=== PATIENT | male | born 1945 | race Caucasian/White ===

== ENCOUNTER → 2016-05-19 | Outpatient (REF) | payer MEDICARE ==
[~2016-05-19] MED LIST: ACET30TAB PO; ACYC1CAP8 PO; ASPI81TA85 PO; CLIN1CAP5 PEG; FLUCONAZOLE PO; LOSA50TA20 PO; METO50TA2 PO; OMEP20CA3 PO; PILO5TAB3 PO; PRED10TA PO; SIMV40TA2 PO; SIMV80TA PO
[2016-05-19 17:15] LABS: BASO % 0.2 % (0.0-1.0); EOS # 0.3 K/mm3 (0.0-0.50); EOS % 5.8 % (0.0-3.0); LARGE UNSTAINED CELL # 0.1 K/mm3 (0.0-0.4); LARGE UNSTAINED CELL % 2.1 % (0.0-4.0); LYMPH # 0.6 K/mm3 (1.5-4.5); LYMPH % 13.4 % (24.0-44.0); MEAN CORPUSCULAR HEMOGLOBIN 33.4 pg (27.0-33.0); MEAN CORPUSCULAR HGB CONC 34.8 g/dl (32.0-36.5); MEAN CORPUSCULAR VOLUME 95.7 fl (80.0-96.0); MONO # 0.2 K/mm3 (0.0-0.8); MONO % 5.5 % (0.0-5.0); NEUTROPHILS # 3.2 K/mm3 (1.8-7.7); PLATELET COUNT, AUTOMATED 127 k/mm3 (150-450); RED CELL DISTRIBUTION WIDTH 11.9 % (11.5-14.5); WHITE BLOOD COUNT 4.4 K/mm3 (4.0-10.0)
[2016-05-19 18:20] LABS: ALKALINE PHOSPHATASE 70 U/L (45-117); ALT/SGPT 28 U/L (12-78); ANION GAP 9 MEQ/L (8-16); AST/SGOT 24 U/L (15-37); BILIRUBIN,TOTAL 0.7 MG/DL (0.2-1.0); BLOOD UREA NITROGEN 15 MG/DL (7-18); CALCIUM LEVEL 8.6 MG/DL (8.8-10.2); CARBON DIOXIDE LEVEL 26 MEQ/L (21-32); CHLORIDE LEVEL 104 MEQ/L (98-107); CHOLESTEROL LEVEL 146 MG/DL (<200); GLOMERULAR FILTRATION RATE > 60.0 (>42); GLUCOSE, FASTING 79 MG/DL (83-110); POTASSIUM SERUM 4.6 MEQ/L (3.5-5.1); SODIUM LEVEL 139 MEQ/L (136-145); TOTAL PROTEIN 6.5 GM/DL (6.4-8.2); TRIGLYCERIDES LEVEL 80 MG/DL (<150)
== END ==
LOC: M SFHCCAPE 07:01
PROVIDERS: ATTEND Physician Assistant
DX: I67.9 Cerebrovascular disease, unspecified (principal); R26.89 Other abnormalities of gait and mobility; E78.5 Hyperlipidemia, unspecified; Z79.899 Other long term (current) drug therapy

== ENCOUNTER → 2016-06-02 | Outpatient (CLI) | payer OTHER, MEDICARE | LOC: M ONCR 09:54 | PROVIDERS: ATTEND Radiology Radiation Oncology | DX: C09.9 Malignant neoplasm of tonsil, unspecified (principal) ==

== ENCOUNTER → 2016-06-14 | Outpatient (CLI) | payer MEDICARE ==
--- NOTE | 2016-06-14 16:58 | REP ---
MRI BRAIN WITHOUT WITH CONTRAST: 06/14/2016: Clinical history: Cerebrovascular disease. Technique: Axial T1, T2, FLAIR, gradient echo, diffusion-weighted images with ADC mapping sequences and then following infusion of 11 mL of ProHance, axial, coronal and sagittal T1 sequences were provided. Findings: Ventricles are midline, symmetric and mildly dilated in proportion with the cerebral atrophy. There is no midline shift. Atrophy is greatest in the temporal and frontal lobes. There are a few scattered subcortical and periventricular white matter hyperintense T2 and FLAIR foci suggesting some small vessel ischemic change. I do not see evidence of acute or remote hemorrhage. Cortical stripe was preserved. There is no vascular territory infarct, mass, mass effect or acute bleed. The brainstem was intact. Cerebellum shows small lacunar infarcts bilaterally which are old. The diffusion weighted images and ADC mapping sequences show no evidence of acute ischemic event. The corpus callosum, optic chiasm and pituitary were intact. The brainstem and the upper cervical cord included in the study were unremarkable. There is no cerebellar tonsillar ectopia or posterior fossa mass. Basal cisterns are intact. There is bilateral mastoiditis with more opacification of the left than right mastoid air cells. Mucosal thickening of multiple ethmoid and both maxillary sinus santos as well as some sphenoid sinus mucosal thickening. Frontal sinuses were clear. Orbits show globes and contents unremarkable. Septum is generally midline. After contrast administration. There is no abnormal enhancement in the pituitary fossa, brainstem, cerebellum or cerebral hemispheres. No abnormal meningeal enhancement, enhancing mass, gyriform enhancement other significant finding. Impression: 1. Chronic small vessel white matter ischemic change with old lacunar infarcts at the basal ganglia and no evidence of acute infarct, hemorrhage, mass or mass effect. 2. Bilateral mastoid and sinuses mucosal thickening without air fluid levels or destructive change. 3. Orbits and contents, seventh/eighth cranial nerve complexes brainstem are all unremarkable. Signed by Kushal Morales MD 06/14/2016 07:40 P
== END ==
LOC: M RAD 14:54
PROVIDERS: ATTEND Physician Assistant
DX: I67.9 Cerebrovascular disease, unspecified (principal)
CPT/HCPCS: 70553; A9576

== ENCOUNTER → 2016-06-21 | Outpatient (CLI) | payer MEDICARE ==
--- NOTE | 2016-06-21 14:51 | REP ---
DUPLEX CAROTID SONOGRAPHY: HISTORY: Cerebrovascular disease. FINDINGS: Antegrade flow was observed in both vertebral arteries. RIGHT CAROTID: The right common carotid artery shows mild diffuse intimal thickening. There is mixed plaquing in the distal CCA, bulb, proximal ICA on the right side on two-dimensional scanning. Color-flow and spectral Doppler interrogation are unremarkable. VELOCITY CHART RIGHT CAROTID: Right CCA PSV 79 cm/s Right ICA PSV 77 EDV 13 Right ECA PSV 95 Right ICA/CCA ratio, normal 1.0 IMPRESSION: 16-49% category narrowing in the right ICA by Doppler velocity criteria. LEFT CAROTID: The left common carotid artery shows mild diffuse intimal thickening. There is mixed plaquing in the bulb, proximal ICA, and proximal ECA on two-dimensional scanning on the left side. Color-flow and spectral Doppler interrogation are unremarkable. VELOCITY CHART LEFT CAROTID: Left CCA PSV 69 cm/s Left ICA PSV 72 EDV 14 Left ECA PSV 96 Left ICA/CCA ratio, normal 1.05 IMPRESSION: 16-49% category narrowing in the left ICA by Doppler velocity criteria. Signed by Ozzie Perez MD 06/21/2016 03:23 P
== END ==
LOC: M RAD 13:13
PROVIDERS: ATTEND Physician Assistant
DX: I67.9 Cerebrovascular disease, unspecified (principal); I65.22 Occlusion and stenosis of left carotid artery

== ENCOUNTER → 2016-07-06 | Outpatient (REF) | payer MEDICARE, OTHER ==
[2016-07-06 16:58] LABS: BASO % 0.6 % (0.0-1.0); EOS # 0.4 K/mm3 (0.0-0.50); EOS % 6.5 % (0.0-3.0); LARGE UNSTAINED CELL # 0.1 K/mm3 (0.0-0.4); LARGE UNSTAINED CELL % 1.4 % (0.0-4.0); LYMPH # 0.8 K/mm3 (1.5-4.5); LYMPH % 11.7 % (24.0-44.0); MEAN CORPUSCULAR HEMOGLOBIN 33.3 pg (27.0-33.0); MEAN CORPUSCULAR HGB CONC 33.8 g/dl (32.0-36.5); MEAN CORPUSCULAR VOLUME 98.7 fl (80.0-96.0); MONO # 0.5 K/mm3 (0.0-0.8); MONO % 7.9 % (0.0-5.0); NEUTROPHILS # 4.3 K/mm3 (1.8-7.7); NEUTROPHILS % 71.9 % (36.0-66.0); PLATELET COUNT, AUTOMATED 156 k/mm3 (150-450)
[2016-07-06 17:32] LABS: ALBUMIN 4.3 GM/DL (3.2-5.2); ALBUMIN/GLOBULIN RATIO 1.59 (1.00-1.93); ALKALINE PHOSPHATASE 75 U/L (45-117); ALT/SGPT 32 U/L (12-78); ANION GAP 7 MEQ/L (8-16); AST/SGOT 27 U/L (15-37); BILIRUBIN,TOTAL 0.5 MG/DL (0.2-1.0); BLOOD UREA NITROGEN 19 MG/DL (7-18); CALCIUM LEVEL 8.7 MG/DL (8.8-10.2); CARBON DIOXIDE LEVEL 29 MEQ/L (21-32); CHLORIDE LEVEL 103 MEQ/L (98-107); CREATININE FOR GFR 1.24 MG/DL (0.70-1.30); FREE T4 0.75 NG/DL (0.76-1.46); GLOMERULAR FILTRATION RATE > 60.0 (>42); GLUCOSE, FASTING 73 MG/DL (83-110); POTASSIUM SERUM 4.3 MEQ/L (3.5-5.1); SODIUM LEVEL 139 MEQ/L (136-145)
== END ==
LOC: M SFHCCAPE 08:34
PROVIDERS: ATTEND Physician Assistant
DX: D69.6 Thrombocytopenia, unspecified (principal); R94.6 Abnormal results of thyroid function studies
CPT/HCPCS: 80053; 84439; 84443; 85025; G0463

== ENCOUNTER → 2016-09-01 | Outpatient (REF) | payer OTHER ==
[2016-09-01 17:12] LABS: BASO % 0.3 % (0.0-1.0); EOS # 0.3 K/mm3 (0.0-0.50); EOS % 4.9 % (0.0-3.0); FREE T4 0.96 NG/DL (0.76-1.46); LARGE UNSTAINED CELL # 0.1 K/mm3 (0.0-0.4); LARGE UNSTAINED CELL % 1.5 % (0.0-4.0); LYMPH # 0.5 K/mm3 (1.5-4.5); LYMPH % 9.6 % (24.0-44.0); MEAN CORPUSCULAR HEMOGLOBIN 32.6 pg (27.0-33.0); MEAN CORPUSCULAR HGB CONC 33.4 g/dl (32.0-36.5); MEAN CORPUSCULAR VOLUME 97.8 fl (80.0-96.0); MONO # 0.3 K/mm3 (0.0-0.8); MONO % 5.8 % (0.0-5.0); NEUTROPHILS # 4.4 K/mm3 (1.8-7.7); NEUTROPHILS % 77.9 % (36.0-66.0); PLATELET COUNT, AUTOMATED 125 k/mm3 (150-450); RED CELL DISTRIBUTION WIDTH 12.1 % (11.5-14.5); WHITE BLOOD COUNT 5.6 K/mm3 (4.0-10.0)
== END ==
LOC: M SFHCCAPE 07:50
PROVIDERS: ATTEND Physician Assistant
DX: E03.9 Hypothyroidism, unspecified (principal); Z79.899 Other long term (current) drug therapy

== ENCOUNTER → 2016-11-02 | Outpatient (REF) | payer OTHER ==
[2016-11-02 18:42] LABS: ALBUMIN 4.1 GM/DL (3.2-5.2); ALBUMIN/GLOBULIN RATIO 1.71 (1.00-1.93); ALKALINE PHOSPHATASE 62 U/L (45-117); ALT/SGPT 26 U/L (12-78); ANION GAP 5 MEQ/L (8-16); AST/SGOT 22 U/L (15-37); BILIRUBIN,TOTAL 0.6 MG/DL (0.2-1.0); BLOOD UREA NITROGEN 11 MG/DL (7-18); CALCIUM LEVEL 8.7 MG/DL (8.8-10.2); CARBON DIOXIDE LEVEL 30 MEQ/L (21-32); CHLORIDE LEVEL 99 MEQ/L (98-107); CREATININE FOR GFR 1.16 MG/DL (0.70-1.30); FREE T4 1.07 NG/DL (0.76-1.46); GLOMERULAR FILTRATION RATE > 60.0 (>42); GLUCOSE, FASTING 81 MG/DL (83-110); POTASSIUM SERUM 4.2 MEQ/L (3.5-5.1); SODIUM LEVEL 134 MEQ/L (136-145); TOTAL PROTEIN 6.5 GM/DL (6.4-8.2)
[2016-11-02 20:43] LABS: BASO # 0.1 K/mm3 (0.0-0.2); BASO % 1.3 % (0.0-1.0); EOS # 0.3 K/mm3 (0.0-0.50); EOS % 6.2 % (0.0-3.0); LARGE UNSTAINED CELL # 0.1 K/mm3 (0.0-0.4); LARGE UNSTAINED CELL % 1.6 % (0.0-4.0); LYMPH # 0.6 K/mm3 (1.5-4.5); LYMPH % 11.6 % (24.0-44.0); MEAN CORPUSCULAR HEMOGLOBIN 33.8 pg (27.0-33.0); MEAN CORPUSCULAR HGB CONC 34.6 g/dl (32.0-36.5); MEAN CORPUSCULAR VOLUME 97.8 fl (80.0-96.0); MONO # 0.4 K/mm3 (0.0-0.8); NEUTROPHILS # 3.7 K/mm3 (1.8-7.7); NEUTROPHILS % 71.3 % (36.0-66.0); PLATELET COUNT, AUTOMATED 139 k/mm3 (150-450); RED CELL DISTRIBUTION WIDTH 12.2 % (11.5-14.5); WHITE BLOOD COUNT 5.2 K/mm3 (4.0-10.0)
== END ==
LOC: M SFHCCAPE 08:24
PROVIDERS: ATTEND Physician Assistant
DX: I10 Essential (primary) hypertension (principal); D69.6 Thrombocytopenia, unspecified; E03.9 Hypothyroidism, unspecified; Z12.5 Encounter for screening for malignant neoplasm of prostate
CPT/HCPCS: 80053; 84439; 84443; 85025; G0103

== ENCOUNTER → 2017-02-02 | Outpatient (REF) | payer OTHER ==
[~2017-02-02] MED LIST changes: -ACYC1CAP8 PO; +ACYC200C8 PO; +CLIN150C14 PEG; -CLIN1CAP5 PEG; -METO50TA2 PO; +METO50TA7 PO
== END ==
LOC: M SFHCCAPE 09:27
PROVIDERS: ATTEND Physician Assistant
DX: D69.6 Thrombocytopenia, unspecified (principal); E78.5 Hyperlipidemia, unspecified; E03.9 Hypothyroidism, unspecified

== ENCOUNTER → 2017-02-23 | Outpatient (CLI) | payer OTHER ==
--- NOTE | 2017-02-24 15:11 | REP ---
Clinical: Pain . Technique: Internal rotation, external rotation, and Y view shoulder. Findings: Mild age-related changes include cortical irregularity and subtle spurring at the acromioclavicular joint as well as blunting to the glenoid rim. No acute fracture or dislocation. The acromioclavicular and glenohumeral joints are intact. No periarticular calcifications. Sub acromial space is normal. Surrounding soft tissues are unremarkable. Impression: Degenerative changes to the right shoulder
== END ==
LOC: M CLY 14:04
PROVIDERS: ATTEND Physician Assistant
DX: M25.511 Pain in right shoulder (principal)

== ENCOUNTER → 2017-07-27 | Outpatient (REF) | payer OTHER ==
[2017-07-27 18:29] LABS: ALBUMIN 4.1 GM/DL (3.2-5.2); ALBUMIN/GLOBULIN RATIO 1.46 (1.00-1.93); ALKALINE PHOSPHATASE 71 U/L (45-117); ALT/SGPT 21 U/L (12-78); ANION GAP 8 MEQ/L (8-16); AST/SGOT 21 U/L (7-37); BILIRUBIN,TOTAL 0.9 MG/DL (0.2-1.0); BLOOD UREA NITROGEN 11 MG/DL (7-18); CALCIUM LEVEL 8.5 MG/DL (8.8-10.2); CARBON DIOXIDE LEVEL 27 MEQ/L (21-32); CHLORIDE LEVEL 102 MEQ/L (98-107); CHOLESTEROL LEVEL 127 MG/DL (<200); CHOLESTEROL RISK RATIO 1.548 (<5); CREATININE FOR GFR 1.07 MG/DL (0.70-1.30); GLOMERULAR FILTRATION RATE > 60.0 (>42); GLUCOSE, FASTING 83 MG/DL (70-100); HDL CHOLESTEROL 82 MG/DL (>40); LDL CHOLESTEROL 31.6 MG/DL (<100); NON-HDL-C 45 MG/DL; POTASSIUM SERUM 4.2 MEQ/L (3.5-5.1); SODIUM LEVEL 137 MEQ/L (136-145); TOTAL PROTEIN 6.9 GM/DL (6.4-8.2); TRIGLYCERIDES LEVEL 67 MG/DL (<150)
[2017-07-27 18:51] LABS: BASO # 0.1 10^3/uL (0.0-0.2); BASO % 1.1 % (0.0-1.0); EOS # 0.5 10^3/uL (0.0-0.50); HEMATOCRIT 39.3 % (42.0-52.0); HEMOGLOBIN 13.3 g/dl (14.0-18.0); IMMATURE GRANULOCYTE % 0.4 % (0-3.0); LYMPH # 0.9 10^3/uL (1.5-4.5); LYMPH % 15.7 % (24.0-44.0); MEAN CORPUSCULAR HEMOGLOBIN 32.4 pg (27.0-33.0); MEAN CORPUSCULAR HGB CONC 33.8 g/dl (32.0-36.5); MEAN CORPUSCULAR VOLUME 95.6 fl (80.0-96.0); MONO # 0.6 10^3/uL (0.0-0.8); NEUTROPHILS # 3.7 10^3/uL (1.8-7.7); NEUTROPHILS % 64.8 % (36.0-66.0); PLATELET COUNT, AUTOMATED 167 10^3/uL (150-450); RED BLOOD COUNT 4.11 10^6/uL (4.30-6.10); WHITE BLOOD COUNT 5.6 10^3/uL (4.0-10.0)
== END ==
LOC: M SFHCCAPE 07:36
DX: E78.5 Hyperlipidemia, unspecified (principal); D69.6 Thrombocytopenia, unspecified; E03.9 Hypothyroidism, unspecified
CPT/HCPCS: 84443

== ENCOUNTER → 2017-08-03 | Outpatient (REF) | payer OTHER ==
[2017-08-04 17:12] LABS: APPEARANCE, URINE CLEAR (CLEAR); BACTERIA, URINE AUTO NEGATIVE (NEGATIVE); BILIRUBIN, URINE AUTO NEGATIVE (NEGATIVE); BLOOD, URINE BLOOD NEGATIVE (NEGATIVE); COLOR, URINE STRAW (YELLOW); GLUCOSE, URINE (UA) AUTO NEGATIVE (NEGATIVE); KETONE, URINE AUTO NEGATIVE (NEGATIVE); LEUKOCYTE ESTERASE, URINE AUTO NEGATIVE (NEGATIVE); NITRITE, URINE AUTO NEGATIVE (NEGATIVE); PROTEIN, URINE AUTO NEGATIVE (NEGATIVE); RBC, URINE AUTO 0 /HPF (0-3); SPECIFIC GRAVITY URINE AUTO 1.004 (1.002-1.035); SQUAMOUS EPITHELIAL CELL UR AU 0 /HPF (0-6); UROBILINOGEN, URINE AUTO 0.2 mg/dL (0.0-2.0); WBC, URINE AUTO 0 /HPF (0-3)
== END ==
LOC: M SFHCCAPE 14:52
DX: R35.1 Nocturia (principal)
CPT/HCPCS: 81001

== ENCOUNTER 2017-09-21 08:14 | Outpatient (REF) | payer OTHER ==
[2017-09-27 17:56] LABS: BASO # 0.1 10^3/uL (0.0-0.2); BASO % 0.7 % (0.0-1.0); EOS # 0.4 10^3/uL (0.0-0.50); EOS % 5.4 % (0.0-3.0); HEMATOCRIT 39.1 % (42.0-52.0); IMMATURE GRANULOCYTE % 0.4 % (0-3.0); LYMPH # 0.6 10^3/uL (1.5-4.5); LYMPH % 8.8 % (24.0-44.0); MEAN CORPUSCULAR HEMOGLOBIN 33.2 pg (27.0-33.0); MEAN CORPUSCULAR HGB CONC 33.2 g/dl (32.0-36.5); MONO # 0.7 10^3/uL (0.0-0.8); MONO % 9.4 % (0.0-5.0); NEUTROPHILS # 5.3 10^3/uL (1.8-7.7); NEUTROPHILS % 75.3 % (36.0-66.0); PLATELET COUNT, AUTOMATED 174 10^3/uL (150-450); RED BLOOD COUNT 3.91 10^6/uL (4.30-6.10); RED CELL DISTRIBUTION WIDTH 12.8 % (11.5-14.5)
[2017-09-27 18:52] LABS: ALBUMIN 4.3 GM/DL (3.2-5.2); ALBUMIN/GLOBULIN RATIO 1.59 (1.00-1.93); ALKALINE PHOSPHATASE 70 U/L (45-117); ALT/SGPT 30 U/L (12-78); ANION GAP 7 MEQ/L (8-16); AST/SGOT 30 U/L (7-37); BILIRUBIN,TOTAL 0.8 MG/DL (0.2-1.0); BLOOD UREA NITROGEN 18 MG/DL (7-18); CALCIUM LEVEL 8.1 MG/DL (8.8-10.2); CARBON DIOXIDE LEVEL 25 MEQ/L (21-32); CHLORIDE LEVEL 102 MEQ/L (98-107); CHOLESTEROL LEVEL 144 MG/DL (<200); CHOLESTEROL RISK RATIO 2.028 (<5); FREE T4 0.97 NG/DL (0.76-1.46); GLOMERULAR FILTRATION RATE > 60.0 (>42); GLUCOSE, FASTING 78 MG/DL (70-100); HDL CHOLESTEROL 71 MG/DL (>40); LDL CHOLESTEROL 61.2 MG/DL (<100); NON-HDL-C 73 MG/DL; POTASSIUM SERUM 4.4 MEQ/L (3.5-5.1); SODIUM LEVEL 134 MEQ/L (136-145); TRIGLYCERIDES LEVEL 59 MG/DL (<150)
== END 2017-09-27 ==
LOC: M SFHCCAPE 08:14
DX: Z53.21 Procedure and treatment not carried out due to patient leaving prior to being seen by health care provider (principal); D69.6 Thrombocytopenia, unspecified; E78.5 Hyperlipidemia, unspecified; E03.9 Hypothyroidism, unspecified
CPT/HCPCS: 84443

== ENCOUNTER → 2017-10-04 | Outpatient (REF) | payer OTHER | LOC: M SFHCCAPE 11:42 | DX: E83.51 Hypocalcemia (principal); D64.9 Anemia, unspecified; E03.9 Hypothyroidism, unspecified; Z53.8 Procedure and treatment not carried out for other reasons ==

== ENCOUNTER 2018-01-20 12:01 | Day surgery (SDC) | payer MEDICARE, OTHER ==
[~2018-01-20 12:01] MED LIST changes: -ACET30TAB PO; -ACYC200C8 PO; -ASPI81TA85 PO; -CLIN150C14 PEG; -FLUCONAZOLE PO; +LIDOCAINE 2% INJ 100 MG/5 ML SDV (FOR ANES.) As Ordered; -LOSA50TA20 PO; -METO50TA7 PO; -OMEP20CA3 PO; -PILO5TAB3 PO; -PRED10TA PO; +PROPOFOL 200 MG/20 ML VIAL As Ordered; -SIMV40TA2 PO; -SIMV80TA PO; +fentaNYL 100 MCG/2 ML INJECTION (J3010) As Ordered
[2018-01-20] MEDS: NS 1,000 ML IV (12:36)
== END 2018-01-20 14:23 | disposition home or self-care (01) ==
LOC: M OPP 12:01
DX: R13.10 Dysphagia, unspecified (principal); K22.2 Esophageal obstruction; K25.9 Gastric ulcer, unspecified as acute or chronic, without hemorrhage or perforation; K29.70 Gastritis, unspecified, without bleeding; I10 Essential (primary) hypertension; E78.5 Hyperlipidemia, unspecified; E03.9 Hypothyroidism, unspecified; R12 Heartburn; K21.9 Gastro-esophageal reflux disease without esophagitis; D64.9 Anemia, unspecified; M19.90 Unspecified osteoarthritis, unspecified site; F32.9 Major depressive disorder, single episode, unspecified; F41.9 Anxiety disorder, unspecified; Z86.69 Personal history of other diseases of the nervous system and sense organs; Z85.818 Personal history of malignant neoplasm of other sites of lip, oral cavity, and pharynx; Z92.3 Personal history of irradiation; J44.9 Chronic obstructive pulmonary disease, unspecified; R35.0 Frequency of micturition; F12.10 Cannabis abuse, uncomplicated; Z79.899 Other long term (current) drug therapy
CPT/HCPCS: 43239

== ENCOUNTER 2018-01-30 14:26 | Inpatient (IN) | payer OTHER, MEDICARE ==
[2018-01-30 14:53] LABS: BEDSIDE GLUCOSE 130 MG/DL (83-110)
[2018-01-30 15:11] LABS: BASO % 0.3 % (0.0-1.0); EOS % 0.3 % (0.0-3.0); HEMATOCRIT 47.2 % (42.0-52.0); HEMOGLOBIN 16.5 g/dl (13.5-17.5); IMMATURE GRANULOCYTE % 0.5 % (0-3.0); LYMPH # 0.9 10^3/uL (1.5-4.5); LYMPH % 7.4 % (24.0-44.0); MEAN CORPUSCULAR HEMOGLOBIN 32.9 pg (27.0-33.0); MEAN CORPUSCULAR VOLUME 94.2 fl (80.0-96.0); MONO # 0.3 10^3/uL (0.0-0.8); MONO % 2.9 % (0.0-5.0); NEUTROPHILS # 10.5 10^3/uL (1.8-7.7); NEUTROPHILS % 88.6 % (36.0-66.0); PLATELET COUNT, AUTOMATED 165 10^3/uL (150-450); RED BLOOD COUNT 5.01 10^6/uL (4.30-6.10); RED CELL DISTRIBUTION WIDTH 12.7 % (11.5-14.5); WHITE BLOOD COUNT 11.9 10^3/uL (4.0-10.0)
[2018-01-30] MEDS: ONDANSETRON 4MG/2ML VIAL (J2405) IV (15:28)
[2018-01-30 15:51] LABS: ALBUMIN/GLOBULIN RATIO 1.43 (1.00-1.93); ALKALINE PHOSPHATASE 79 U/L (45-117); ALT/SGPT 28 U/L (12-78); AMPHETAMINES LEVEL URINE NEGATIVE (NEGATIVE); ANION GAP 12 MEQ/L (8-16); AST/SGOT 29 U/L (7-37); BARBITURATES URINE NEGATIVE (NEGATIVE); BENZODIAZEPINES URINE NEGATIVE (NEGATIVE); BILIRUBIN,DIRECT 0.3 MG/DL (0.0-0.2); BLOOD UREA NITROGEN 14 MG/DL (7-18); CALCIUM LEVEL 9.8 MG/DL (8.8-10.2); CANNABINOIDS URINE POSITIVE (NEGATIVE); CARBON DIOXIDE LEVEL 23 MEQ/L (21-32); CHLORIDE LEVEL 99 MEQ/L (98-107); COCAINE METABOLITE URINE NEGATIVE (NEGATIVE); CPK CREATINE PHOSPHOKINASE 116 U/L (39-308); CREATININE FOR GFR 1.13 MG/DL (0.70-1.30); GLOMERULAR FILTRATION RATE > 60.0 (>42); GLUCOSE, FASTING 125 MG/DL (70-100); METHADONE URINE NEGATIVE (NEGATIVE); OPIATES URINE NEGATIVE (NEGATIVE); PHENCYCLIDINE URINE NEGATIVE (NEGATIVE); SODIUM LEVEL 134 MEQ/L (136-145); TOTAL PROTEIN 8.5 GM/DL (6.4-8.2); TROPONIN I < 0.02 NG/ML (< 0.10)
[2018-01-30 16:33] LABS: LIPASE 151 U/L (73-393)
[2018-01-30 17:33] LABS: ETHYL ALCOHOL (ETHANOL) < 0.003 % (0.000-0.010)
[2018-01-30 18:31] LABS: CPK CREATINE PHOSPHOKINASE 110 U/L (39-308); MB/CK RELATIVE INDEX 3.18 (< OR =4); TROPONIN I 0.03 NG/ML (< 0.10)
[2018-01-30] MEDS: METOCLOPRAMIDE INJ 10MG/2ML VIAL (J2765) IV (19:42)
[2018-01-30] MEDS ORDERED: ONDANSETRON 4MG/2ML VIAL (J2405) IV (19:45)
[2018-01-30] MEDS ORDERED: CALCIUM CARBONATE 500 MG CHEW U/D PO (20:00)
[2018-01-30] MEDS ORDERED: LORazepam 2 MG TAB PO (20:00)
[2018-01-30] MEDS ORDERED: POLYVINYL ALCOHOL OPHTH SOLN 15 ML(LIQUITEARS) OU (20:00)
[2018-01-30] MEDS ORDERED: **hydrALAZINE** 50 MG TAB PO (20:00)
[2018-01-30] MEDS ORDERED: PROCHLORPERAZINE 10 MG/2 ML VIAL (J0780) As Ordered (20:33)
[2018-01-30] MEDS: PROCHLORPERAZINE 10 MG/2 ML VIAL (J0780) IV (20:44)
[2018-01-30] MEDS: THIAMINE 100 MG TAB PO (21:41)
[2018-01-30] MEDS: CARVedilol 3.125 MG TAB PO (21:41)
[2018-01-30] MEDS: SIMVASTATIN 40 MG TAB PO (21:41)
[2018-01-30] MEDS: GABAPENTIN 300 MG CAP PO (21:41)
[2018-01-30] MEDS: HEPARIN SOD (PORCINE) 5000 UNITS/ML VIAL SC (21:42)
[2018-01-30] MEDS: OMEPRAZOLE 20 MG CAP PO (21:42)
[2018-01-30] MEDS: NS 0.45% 1,000 ML IV (21:42)
[2018-01-30] MEDS: ACETAMINOPHEN TAB 650MG DOSE (2X325MG) PO (21:44)
[2018-01-30 21:52] LABS: C REACTIVE PROTEIN QUANTITATIV < 0.30 MG/DL (0.00-0.30)
[2018-01-30 22:10] LABS: APPEARANCE, URINE CLEAR (CLEAR); BACTERIA, URINE AUTO NEGATIVE (NEGATIVE); BILIRUBIN, URINE AUTO NEGATIVE (NEGATIVE); BLOOD, URINE BLOOD 1+ (NEGATIVE); COLOR, URINE YELLOW (YELLOW); GLUCOSE, URINE (UA) AUTO 2+ mg/dL (NEGATIVE); KETONE, URINE AUTO 2+ mg/dL (NEGATIVE); LEUKOCYTE ESTERASE, URINE AUTO NEGATIVE (NEGATIVE); MUCUS, URINE SMALL (NEGATIVE); NITRITE, URINE AUTO NEGATIVE (NEGATIVE); PROTEIN, URINE AUTO 3+ mg/dL (NEGATIVE); RBC, URINE AUTO 6 /HPF (0-3); SPECIFIC GRAVITY URINE AUTO 1.015 (1.002-1.035); SQUAMOUS EPITHELIAL CELL UR AU 0 /HPF (0-6); UROBILINOGEN, URINE AUTO 0.2 mg/dL (0.0-2.0); WBC, URINE AUTO 3 /HPF (0-3)
[2018-01-30] MEDS: **hydrALAZINE HCL** 25 MG TAB PO (23:09)
[2018-01-31] MEDS: IBUPROFEN 400 MG TAB PO (01:00)
[2018-01-31 02:46] LABS: HEMATOCRIT 46.8 % (42.0-52.0); HEMOGLOBIN 16.5 g/dl (13.5-17.5); MEAN CORPUSCULAR HEMOGLOBIN 33.3 pg (27.0-33.0); MEAN CORPUSCULAR HGB CONC 35.3 g/dl (32.0-36.5); MEAN CORPUSCULAR VOLUME 94.4 fl (80.0-96.0); PLATELET COUNT, AUTOMATED 134 10^3/uL (150-450); RED BLOOD COUNT 4.96 10^6/uL (4.30-6.10); RED CELL DISTRIBUTION WIDTH 12.5 % (11.5-14.5)
[2018-01-31] MEDS: HEPARIN SOD (PORCINE) 5000 UNITS/ML VIAL SC ×3 (06:00→20:34)
[2018-01-31] MEDS: LEVOTHYROXINE 50MCG TABLET (0.05MG) PO (06:00)
[2018-01-31 08:30] LABS: ANION GAP 12 MEQ/L (8-16); BLOOD UREA NITROGEN 25 MG/DL (7-18); CALCIUM LEVEL 8.6 MG/DL (8.8-10.2); CARBON DIOXIDE LEVEL 24 MEQ/L (21-32); CHLORIDE LEVEL 95 MEQ/L (98-107); GLOMERULAR FILTRATION RATE 35.2 (>42); GLUCOSE, FASTING 111 MG/DL (70-100); MAGNESIUM LEVEL 1.7 MG/DL (1.8-2.4); POTASSIUM SERUM 3.9 MEQ/L (3.5-5.1); SODIUM LEVEL 131 MEQ/L (136-145)
[2018-01-31] MEDS ORDERED: ASPIRIN 81 MG ENTERIC TAB PO (09:00)
[2018-01-31] MEDS ORDERED: PANTOPRAZOLE 40MG TAB (PROTONIX) PO (09:00)
[2018-01-31] MEDS: FOLIC ACID 1 MG TAB PO (09:20)
[2018-01-31] MEDS: OMEPRAZOLE 20 MG CAP PO ×2 (09:20→20:36)
[2018-01-31] MEDS: ASPIRIN 81 MG ENTERIC TAB PO (09:20)
[2018-01-31] MEDS: MULTIVITAMINS/MINERALS THERAP 1 TAB PO (09:20)
[2018-01-31] MEDS: CARVedilol 3.125 MG TAB PO ×2 (09:21→20:35)
[2018-01-31] MEDS: THIAMINE 100 MG TAB PO ×2 (09:21→20:35)
[2018-01-31] MEDS: LOSARTAN 50 MG TAB PO (09:21)
[2018-01-31] MEDS: NS 1,000 ML IV ×2 (11:45→18:00)
[2018-01-31] MEDS: MAG SULF 1GM/100ML (MAG RUN) 1 GM in APPROPRIATE DILUENT 1 EA IV (13:10)
[2018-01-31] MEDS: SIMVASTATIN 40 MG TAB PO (20:34)
[2018-01-31] MEDS: GABAPENTIN 300 MG CAP PO (20:35)
[2018-01-31] MEDS: VITAMIN D (CHOLECALCIFEROL) 400 INTERNATIONAL UNITS TAB PO (20:36)
[2018-01-31 21:24] LABS: ANION GAP 9 MEQ/L (8-16); BLOOD UREA NITROGEN 31 MG/DL (7-18); CALCIUM LEVEL 8.3 MG/DL (8.8-10.2); CARBON DIOXIDE LEVEL 22 MEQ/L (21-32); CHLORIDE LEVEL 100 MEQ/L (98-107); CREATININE FOR GFR 1.58 MG/DL (0.70-1.30); GLOMERULAR FILTRATION RATE 46.3 (>42); GLUCOSE, FASTING 95 MG/DL (70-100); MAGNESIUM LEVEL 2.1 MG/DL (1.8-2.4); POTASSIUM SERUM 3.9 MEQ/L (3.5-5.1); SODIUM LEVEL 131 MEQ/L (136-145)
[2018-02-01] MEDS: NS 1,000 ML IV (03:27)
[2018-02-01] MEDS: LEVOTHYROXINE 50MCG TABLET (0.05MG) PO (05:46)
[2018-02-01] MEDS: HEPARIN SOD (PORCINE) 5000 UNITS/ML VIAL SC (05:46)
[2018-02-01 06:45] LABS: HEMATOCRIT 39.7 % (42.0-52.0); MEAN CORPUSCULAR HEMOGLOBIN 32.5 pg (27.0-33.0); MEAN CORPUSCULAR HGB CONC 34.3 g/dl (32.0-36.5); PLATELET COUNT, AUTOMATED 112 10^3/uL (150-450); RED BLOOD COUNT 4.18 10^6/uL (4.30-6.10); RED CELL DISTRIBUTION WIDTH 12.5 % (11.5-14.5)
[2018-02-01 06:51] LABS: HEMOGLOBIN 13.6 g/dl (13.5-17.5)
[2018-02-01 07:14] LABS: ANION GAP 7 MEQ/L (8-16); BLOOD UREA NITROGEN 26 MG/DL (7-18); CALCIUM LEVEL 7.9 MG/DL (8.8-10.2); CARBON DIOXIDE LEVEL 23 MEQ/L (21-32); CHLORIDE LEVEL 106 MEQ/L (98-107); CREATININE FOR GFR 1.21 MG/DL (0.70-1.30); GLOMERULAR FILTRATION RATE > 60.0 (>42); GLUCOSE, FASTING 96 MG/DL (70-100); POTASSIUM SERUM 3.9 MEQ/L (3.5-5.1); SODIUM LEVEL 136 MEQ/L (136-145)
[2018-02-01] MEDS: OMEPRAZOLE 20 MG CAP PO (09:22)
[2018-02-01] MEDS: MULTIVITAMINS/MINERALS THERAP 1 TAB PO (09:22)
[2018-02-01] MEDS: THIAMINE 100 MG TAB PO (09:22)
[2018-02-01] MEDS: ASPIRIN 81 MG ENTERIC TAB PO (09:22)
[2018-02-01] MEDS: FOLIC ACID 1 MG TAB PO (09:22)
[2018-02-01] MEDS: CARVedilol 3.125 MG TAB PO (09:24)
[2018-02-01] MEDS: VITAMIN D (CHOLECALCIFEROL) 400 INTERNATIONAL UNITS TAB PO (09:24)
== END 2018-02-01 12:00 | disposition home or self-care (01) | DRG 54 ==
LOC: M PCU 01-31 02:09 → M ED 14:26 → M ED INP 19:33 → M MSPAV 01-31 18:23
PROVIDERS: Internal Medicine
DX: G43.A0 Cyclical vomiting, in migraine, not intractable (principal); N17.9 Acute kidney failure, unspecified; R55 Syncope and collapse; E86.0 Dehydration; Z86.73 Personal history of transient ischemic attack (TIA), and cerebral infarction without residual deficits; K21.9 Gastro-esophageal reflux disease without esophagitis; I10 Essential (primary) hypertension; Z92.3 Personal history of irradiation; E78.5 Hyperlipidemia, unspecified; Z85.09 Personal history of malignant neoplasm of other digestive organs; Z98.49 Cataract extraction status, unspecified eye; Z79.899 Other long term (current) drug therapy

== ENCOUNTER → 2018-04-11 | Outpatient (REF) | payer OTHER | LOC: M SFHCCAPE 08:38 → M SFHCCLAY 10:21 | DX: E83.51 Hypocalcemia (principal); D64.9 Anemia, unspecified; E03.9 Hypothyroidism, unspecified; Z53.8 Procedure and treatment not carried out for other reasons ==

== ENCOUNTER → 2018-04-11 | Outpatient (CLI) | payer MEDICARE ==
[2018-04-11 13:01] LABS: IONIZED CALCIUM 4.4 MG/DL (4.5-5.3)
[2018-04-11 13:07] LABS: BASO # 0.1 10^3/uL (0.0-0.2); BASO % 0.6 % (0.0-1.0); EOS # 0.6 10^3/uL (0.0-0.50); EOS % 6.5 % (0.0-3.0); HEMATOCRIT 44.9 % (42.0-52.0); HEMOGLOBIN 15.5 g/dl (13.5-17.5); IMMATURE GRANULOCYTE % 0.2 % (0-3.0); LYMPH # 0.9 10^3/uL (1.5-4.5); LYMPH % 9.9 % (24.0-44.0); MEAN CORPUSCULAR HEMOGLOBIN 32.8 pg (27.0-33.0); MEAN CORPUSCULAR HGB CONC 34.5 g/dl (32.0-36.5); MEAN CORPUSCULAR VOLUME 95.1 fl (80.0-96.0); MONO # 0.6 10^3/uL (0.0-0.8); MONO % 6.5 % (0.0-5.0); NEUTROPHILS # 6.9 10^3/uL (1.8-7.7); NEUTROPHILS % 76.3 % (36.0-66.0); PLATELET COUNT, AUTOMATED 128 10^3/uL (150-450); RED BLOOD COUNT 4.72 10^6/uL (4.30-6.10); RED CELL DISTRIBUTION WIDTH 12.2 % (11.5-14.5)
[2018-04-11 13:08] LABS: HEMATOCRIT 44.9 % (42.0-52.0)
[2018-04-11 13:42] LABS: ALBUMIN 4.2 GM/DL (3.2-5.2); ALBUMIN/GLOBULIN RATIO 1.27 (1.00-1.93); ALKALINE PHOSPHATASE 74 U/L (45-117); ALT/SGPT 25 U/L (12-78); ANION GAP 6 MEQ/L (8-16); AST/SGOT 21 U/L (7-37); BILIRUBIN,TOTAL 0.6 MG/DL (0.2-1.0); BLOOD UREA NITROGEN 14 MG/DL (7-18); CALCIUM LEVEL 8.6 MG/DL (8.8-10.2); CARBON DIOXIDE LEVEL 29 MEQ/L (21-32); CHLORIDE LEVEL 101 MEQ/L (98-107); CHOLESTEROL LEVEL 175 MG/DL (<200); CHOLESTEROL RISK RATIO 2.573 (<5); CREATININE FOR GFR 1.02 MG/DL (0.70-1.30); FERRITIN 100 NG/ML (26-388); FREE T4 1.07 NG/DL (0.76-1.46); GLOMERULAR FILTRATION RATE > 60.0 (>42); GLUCOSE, FASTING 67 MG/DL (70-100); HDL CHOLESTEROL 68 MG/DL (>40); IRON (FE) 94 UG/DL (65-175); LDL CHOLESTEROL 84 MG/DL (<100); MAGNESIUM LEVEL 2.1 MG/DL (1.8-2.4); NON-HDL-C 107 MG/DL; PERCENT SATURATION 27.5 % (19.7-50.0); PHOSPHORUS LEVEL 3.5 MG/DL (2.5-4.9); POTASSIUM SERUM 4.9 MEQ/L (3.5-5.1); SODIUM LEVEL 136 MEQ/L (136-145); TOTAL IRON BINDING CAPACITY 342 UG/DL (250-450); TOTAL PROTEIN 7.5 GM/DL (6.4-8.2); TRIGLYCERIDES LEVEL 115 MG/DL (<150)
[2018-04-11 13:45] LABS: PTH INTACT 24.2 PG/ML (18.5-88.0); TOTAL 25(OH) VITAMIN D 25.2 NG/ML (30.0-100.0); VITAMIN B12 LEVEL 574 PG/ML (247-911)
== END ==
LOC: M LAB 11:44
DX: E78.5 Hyperlipidemia, unspecified (principal); E83.51 Hypocalcemia; D64.9 Anemia, unspecified; E03.9 Hypothyroidism, unspecified
CPT/HCPCS: 83550

== ENCOUNTER → 2018-04-26 | Outpatient (CLI) | payer MEDICARE | LOC: M CLY 10:50 | DX: M50.321 Other cervical disc degeneration at C4-C5 level (principal); M50.323 Other cervical disc degeneration at C6-C7 level; M25.78 Osteophyte, vertebrae | CPT/HCPCS: 72052 ==

== ENCOUNTER → 2018-06-21 | Outpatient (REF) | payer MEDICARE ==
[~2018-06-21] MED LIST changes: +ACET30TAB PO; +ACYC200C8 PO; +ARTI99.0 OU; +ASPI81CH PO; +ASPI81TA85 PO; +CARV3.12 PO; +CLIN150C14 PEG; +FLUCONAZOLE PO; +GABA-843 PO; +LEVO50TA5 PO; -LIDOCAINE 2% INJ 100 MG/5 ML SDV (FOR ANES.) As Ordered; +LOSA100T50 PO; +LOSA50TA88 PO; +METO50TA7 PO; +OMEP20CA3 PO; +OXYC1TAB23 PO; +OXYCOD/APAP PO; +PANT40TA3 PO; +PILO5TAB3 PO; +PRED10TA PO; -PROPOFOL 200 MG/20 ML VIAL As Ordered; +SIMV40TA2 PO; +SIMV80TA13 PO; +TUMS500C PO; +VITA400T2 PO; -fentaNYL 100 MCG/2 ML INJECTION (J3010) As Ordered
[2018-06-21 16:50] LABS: BLOOD UREA NITROGEN 14 MG/DL (7-18); CREATININE FOR GFR 1.07 MG/DL (0.70-1.30); GLOMERULAR FILTRATION RATE > 60.0 (>42)
== END ==
LOC: M LABDRWCV 16:11
PROVIDERS: ATTEND Orthopaedic Surgery
DX: M43.12 Spondylolisthesis, cervical region (principal); M50.30 Other cervical disc degeneration, unspecified cervical region

== ENCOUNTER → 2018-07-18 | Outpatient (REF) | payer MEDICARE ==
[2018-07-18 16:41] LABS: IONIZED CALCIUM 4.7 MG/DL (4.5-5.3)
[2018-07-18 16:48] LABS: BASO # 0.1 10^3/uL (0.0-0.2); BASO % 0.9 % (0.0-1.0); EOS # 0.3 10^3/uL (0.0-0.50); EOS % 5.4 % (0.0-3.0); HEMATOCRIT 40.6 % (42.0-52.0); HEMOGLOBIN 13.9 g/dl (13.5-17.5); LYMPH # 0.6 10^3/uL (1.5-4.5); LYMPH % 11.2 % (24.0-44.0); MEAN CORPUSCULAR HEMOGLOBIN 32.7 pg (27.0-33.0); MEAN CORPUSCULAR HGB CONC 34.2 g/dl (32.0-36.5); MEAN CORPUSCULAR VOLUME 95.5 fl (80.0-96.0); MONO # 0.5 10^3/uL (0.0-0.8); MONO % 9.8 % (0.0-5.0); NEUTROPHILS % 72.5 % (36.0-66.0); PLATELET COUNT, AUTOMATED 182 10^3/uL (150-450); RED BLOOD COUNT 4.25 10^6/uL (4.30-6.10); WHITE BLOOD COUNT 5.5 10^3/uL (4.0-10.0)
[2018-07-18 17:01] LABS: ALBUMIN 4.3 GM/DL (3.2-5.2); ALT/SGPT 27 U/L (12-78); BILIRUBIN,TOTAL 0.7 MG/DL (0.2-1.0); BLOOD UREA NITROGEN 16 MG/DL (7-18); CALCIUM LEVEL 8.6 MG/DL (8.8-10.2); CARBON DIOXIDE LEVEL 30 MEQ/L (21-32); CHLORIDE LEVEL 99 MEQ/L (98-107); CHOLESTEROL LEVEL 171 MG/DL (<200); CHOLESTEROL RISK RATIO 2.035 (<5); CREATININE FOR GFR 1.07 MG/DL (0.70-1.30); GLOMERULAR FILTRATION RATE > 60.0 (>42); GLUCOSE, FASTING 100 MG/DL (70-100); HDL CHOLESTEROL 84 MG/DL (>40); LDL CHOLESTEROL 67 MG/DL (<100); NON-HDL-C 87 MG/DL; POTASSIUM SERUM 4.3 MEQ/L (3.5-5.1); SODIUM LEVEL 135 MEQ/L (136-145); TOTAL PROTEIN 7.3 GM/DL (6.4-8.2); TRIGLYCERIDES LEVEL 98 MG/DL (<150)
== END ==
LOC: M SFHCCAPE 08:37
PROVIDERS: ATTEND Physician Assistant
DX: E78.5 Hyperlipidemia, unspecified (principal); D69.6 Thrombocytopenia, unspecified; E03.9 Hypothyroidism, unspecified; E55.9 Vitamin D deficiency, unspecified

== ENCOUNTER → 2018-11-15 | Outpatient (REF) | payer MEDICARE ==
[~2018-11-15] MED LIST changes: +ACET-716 PO; -ACET30TAB PO; -ASPI81CH PO; +ASPI81CH49 PO; -OMEP20CA3 PO; +OMEP20CA4 PO; +PRED-351 PO; -PRED10TA PO
[2018-11-15 18:02] LABS: ALT/SGPT 64 U/L (12-78); BILIRUBIN,TOTAL 0.6 MG/DL (0.2-1.0); BLOOD UREA NITROGEN 12 MG/DL (7-18); CALCIUM LEVEL 8.4 MG/DL (8.8-10.2); CARBON DIOXIDE LEVEL 28 MEQ/L (21-32); CHLORIDE LEVEL 101 MEQ/L (98-107); CREATININE FOR GFR 1.03 MG/DL (0.70-1.30); GLOMERULAR FILTRATION RATE > 60.0 (>42); GLUCOSE, FASTING 75 MG/DL (70-100); POTASSIUM SERUM 4.2 MEQ/L (3.5-5.1); SODIUM LEVEL 137 MEQ/L (136-145)
[2018-11-15 18:03] LABS: ALBUMIN 3.8 GM/DL (3.2-5.2); CHOLESTEROL LEVEL 142 MG/DL (<200); CHOLESTEROL RISK RATIO 2.327 (<5); FREE T4 1.17 NG/DL (0.76-1.46); HDL CHOLESTEROL 61 MG/DL (>40); LDL CHOLESTEROL 62 MG/DL (<100); NON-HDL-C 81 MG/DL; TOTAL PROTEIN 6.5 GM/DL (6.4-8.2); TRIGLYCERIDES LEVEL 95 MG/DL (<150)
[2018-11-15 18:06] LABS: TOTAL 25(OH) VITAMIN D 21.8 NG/ML (30.0-100.0)
[2018-11-15 18:10] LABS: BASO % 0.5 % (0.0-1.0); EOS # 0.2 10^3/uL (0.0-0.50); EOS % 2.4 % (0.0-3.0); HEMATOCRIT 37.1 % (42.0-52.0); HEMOGLOBIN 12.3 g/dl (13.5-17.5); LYMPH # 0.8 10^3/uL (1.5-4.5); LYMPH % 9.1 % (24.0-44.0); MEAN CORPUSCULAR HGB CONC 33.2 g/dl (32.0-36.5); MEAN CORPUSCULAR VOLUME 96.6 fl (80.0-96.0); MONO # 0.7 10^3/uL (0.0-0.8); MONO % 8.8 % (0.0-5.0); NEUTROPHILS # 6.6 10^3/uL (1.8-7.7); NEUTROPHILS % 78.8 % (36.0-66.0); PLATELET COUNT, AUTOMATED 168 10^3/uL (150-450); RED BLOOD COUNT 3.84 10^6/uL (4.30-6.10); WHITE BLOOD COUNT 8.3 10^3/uL (4.0-10.0)
== END ==
LOC: M SFHCCAPE 09:44
PROVIDERS: ATTEND Physician Assistant
DX: E78.5 Hyperlipidemia, unspecified (principal); E03.9 Hypothyroidism, unspecified; Z12.5 Encounter for screening for malignant neoplasm of prostate; R39.9 Unspecified symptoms and signs involving the genitourinary system; E55.9 Vitamin D deficiency, unspecified
CPT/HCPCS: 36415; 80053; 80061; 82306; 84439; 84443; 85025; G0103

== ENCOUNTER → 2018-11-20 | Outpatient (REF) | payer MEDICARE ==
[2018-11-20 19:38] LABS: APPEARANCE, URINE HAZY (CLEAR); BACTERIA, URINE AUTO 3+ (NEGATIVE); BILIRUBIN, URINE AUTO NEGATIVE (NEGATIVE); BLOOD, URINE BLOOD 1+ (NEGATIVE); COLOR, URINE YELLOW (YELLOW); GLUCOSE, URINE (UA) AUTO NEGATIVE (NEGATIVE); KETONE, URINE AUTO NEGATIVE (NEGATIVE); LEUKOCYTE ESTERASE, URINE AUTO NEGATIVE (NEGATIVE); NITRITE, URINE AUTO POSITIVE (NEGATIVE); PROTEIN, URINE AUTO NEGATIVE (NEGATIVE); RBC, URINE AUTO 0 /HPF (0-3); SPECIFIC GRAVITY URINE AUTO 1.004 (1.002-1.035); SQUAMOUS EPITHELIAL CELL UR AU 0 /HPF (0-6); UROBILINOGEN, URINE AUTO 0.2 mg/dL (0.0-2.0); WBC, URINE AUTO 0 /HPF (0-3)
== END ==
LOC: M SFHCCAPE 17:16
PROVIDERS: ATTEND Physician Assistant
DX: R39.9 Unspecified symptoms and signs involving the genitourinary system (principal)
CPT/HCPCS: 81001; 87088; 87186; G0463

== ENCOUNTER → 2018-12-07 | Outpatient (CLI) | payer MEDICARE | LOC: M RAD 10:15 | PROVIDERS: ATTEND Otolaryngology | DX: R13.10 Dysphagia, unspecified (principal); Z53.9 Procedure and treatment not carried out, unspecified reason ==

== ENCOUNTER → 2018-12-08 | Outpatient (CLI) | payer MEDICARE ==
[~2018-12-08] MED LIST changes: +E-Z-GAS II EFFERVESCENT PACKET (SODIUM BICARB./CITRIC ACID/SIMETHICONE) As Ordered ONE; +E-Z-PAQUE 96% w/w SUSP 176GM BTL As Ordered ONE
--- NOTE | 2018-12-12 17:28 | REP ---
Esophagram The procedure was performed under the direct supervision of Dr. Rascon. The images were reviewed with Dr. Rascon. A single view PA chest x-ray is submitted as a pl sql developer film. The superior mediastinal structures are midline. The heart size is within normal limits. The lungs are clear. Liquid barium was administered in the erect and prone oblique positions in order to perform a single contrast esophagram examination. The oral and pharyngeal stages of deglutition are unremarkable. There is cricopharyngeal hypertrophy. Esophageal transport is prompt and efficient and there is no esophagitis, stricture, mucosal ring or hiatal hernia. Gastroesophageal reflux is not demonstrated on this examination. Impression: There is cricopharyngeal hypertrophy. Otherwise, unremarkable single contrast esophagram examination. 0.7 minutes of fluoro time was utilized for this procedure. Reviewed by ROBERT Scott 12/08/2018 03:57 P Electronically Signed by Mayito Rascon MD 12/12/2018 05:19 P
== END ==
LOC: M RAD 09:11
PROVIDERS: ATTEND Otolaryngology
DX: J35.1 Hypertrophy of tonsils (principal)

== ENCOUNTER 2019-02-12 09:06 | Day surgery (SDC) | payer MEDICARE ==
[~2019-02-12] VITALS: Ht 167.6 cm; Wt 59.0 kg
[2019-02-12] MEDS: NS 1,000 ML IV SCH ×2 (06:00→11:53)
[~2019-02-12 09:06] MED LIST changes: -ARTI99.0 OU; +ARTIDRO2 OU; +CHOL100029 PO; -E-Z-GAS II EFFERVESCENT PACKET (SODIUM BICARB./CITRIC ACID/SIMETHICONE) As Ordered ONE; -E-Z-PAQUE 96% w/w SUSP 176GM BTL As Ordered ONE
[2019-02-12] MEDS ORDERED: LIDOCAINE 2% INJ 100 MG/5 ML SDV (FOR ANES.) As Ordered ONE (09:47)
[2019-02-12] MEDS ORDERED: PROPOFOL 200 MG/20 ML VIAL As Ordered ONE (09:47)
[2019-02-12] MEDS ORDERED: fentaNYL 100 MCG/2 ML INJECTION (J3010) As Ordered ONE (12:06)
--- NOTE | 2019-02-12 13:54 | ROOR ---
Patient Name: Bryan Mathews Procedure Date: 02/12/2019 12:57 PM Date of : 1945 Age: 73 Room: [facility] Gender: Male Note Status: Finalized Procedure: Upper GI endoscopy Indications: Dysphagia Providers: Hunter Henry MD Referring MD: SHERI Garzon pa-c Requesting Provider: Medicines: Monitored Anesthesia Care Complications: No immediate complications. Procedure: Pre-Anesthesia Assessment: - Prior to the procedure, a History and Physical was performed, and patient medications and allergies were reviewed. The patient is competent. The risks and benefits of the procedure and the sedation options and risks were discussed with the patient. All questions were answered and informed consent was obtained. Patient identification and proposed procedure were verified by the physician, the nurse and the anesthesiologist in the procedure room. Mental Status Examination: alert and oriented. Airway Examination: normal oropharyngeal airway and neck mobility. Respiratory Examination: clear to auscultation. CV Examination: normal. Prophylactic Antibiotics: The patient does not require prophylactic antibiotics. Prior Anticoagulants: The patient has taken no previous anticoagulant or antiplatelet agents. ASA Grade Assessment: III - A patient with severe systemic disease. After reviewing the risks and benefits, the patient was deemed in satisfactory condition to undergo the procedure. The anesthesia plan was to use monitored anesthesia care (MAC). Immediately prior to administration of medications, the patient was re-assessed for adequacy to receive sedatives. The heart rate, respiratory rate, oxygen saturations, blood pressure, adequacy of pulmonary ventilation, and response to care were monitored throughout the procedure. The physical status of the patient was re-assessed after the procedure. The Endoscope was introduced through the mouth, and advanced to the second part of duodenum. The upper GI endoscopy was accomplished without difficulty. The patient tolerated the procedure well. Findings: Mildly severe esophagitis with no bleeding was found in the upper third of the esophagus. A TTS dilator was passed through the scope. Dilation with an 18-19-20 mm balloon dilator was performed to 18 mm. The dilation site was examined following endoscope reinsertion and showed mild mucosal disruption, moderate improvement in luminal narrowing and no perforation. The Z-line was regular and was found 40 cm from the incisors. Biopsies were obtained from the proximal and distal esophagus with cold forceps for histology of suspected eosinophilic esophagitis. Verification of patient identification for the specimen was done by the physician and nurse using the patient's name, date and medical record number. Estimated blood loss was minimal. Scattered mild inflammation characterized by congestion (edema), erythema and granularity was found in the gastric antrum. Biopsies were taken with a cold forceps for Helicobacter pylori testing. The duodenal bulb and second portion of the duodenum were normal. Impression: - Mildly severe radiation esophagitis. Dilated. - Z-line regular, 40 cm from the incisors. Biopsied. - Gastritis. Biopsied. - Normal duodenal bulb and second portion of the duodenum. Recommendation: - Patient has a contact number available for emergencies. The signs and symptoms of potential delayed complications were discussed with the patient. Return to normal activities tomorrow. Written discharge instructions were provided to the patient. - Full liquid diet for 1 day, then advance as tolerated to high fiber diet. - Continue present medications. 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 - Await pathology results. - Return to GI clinic in [facility] (address [address], [facility] [address] [address]) in 4 -- 6 weeks. Please call GI clinic @ [phone] for apppointment date and time. - Return to primary care physician. Hunter Henry MD Hunter Henry MD 02/12/2019 1:53:45 PM Electronically signed by Hunter Henry MD Number of Addenda: 0 Note Initiated On: 02/12/2019 12:57 PM Estimated Blood Loss: Estimated blood loss was minimal.
--- NOTE | 2019-02-12 13:58 | ROOR ---
Patient Name: Bryan Mathews Procedure Date: 02/12/2019 12:58 PM Date of : 1945 Age: 73 Room: [facility] Gender: Male Note Status: Finalized Procedure: Colonoscopy Indications: Screening for colorectal malignant neoplasm Providers: Hunter Henry MD Referring MD: SHERI Garzon pa-c Requesting Provider: Medicines: Monitored Anesthesia Care Complications: No immediate complications. Procedure: Pre-Anesthesia Assessment: - Prior to the procedure, a History and Physical was performed, and patient medications and allergies were reviewed. The patient is competent. The risks and benefits of the procedure and the sedation options and risks were discussed with the patient. All questions were answered and informed consent was obtained. Patient identification and proposed procedure were verified by the physician, the nurse and the anesthesiologist in the procedure room. Mental Status Examination: alert and oriented. Airway Examination: normal oropharyngeal airway and neck mobility. Respiratory Examination: clear to auscultation. CV Examination: normal. Prophylactic Antibiotics: The patient does not require prophylactic antibiotics. Prior Anticoagulants: The patient has taken no previous anticoagulant or antiplatelet agents. ASA Grade Assessment: III - A patient with severe systemic disease. After reviewing the risks and benefits, the patient was deemed in satisfactory condition to undergo the procedure. The anesthesia plan was to use monitored anesthesia care (MAC). Immediately prior to administration of medications, the patient was re-assessed for adequacy to receive sedatives. The heart rate, respiratory rate, oxygen saturations, blood pressure, adequacy of pulmonary ventilation, and response to care were monitored throughout the procedure. The physical status of the patient was re-assessed after the procedure. The Colonoscope was introduced through the anus and advanced to the terminal ileum, with identification of the appendiceal orifice and IC valve. The colonoscopy was performed without difficulty. The patient tolerated the procedure well. The quality of the bowel preparation was good. The terminal ileum, ileocecal valve, appendiceal orifice, and rectum were photographed. Scope insertion time was 4 minutes. Scope withdrawal time was 9 minutes. The total duration of the procedure was 13 minutes. Findings: The perianal and digital rectal examinations were normal. The terminal ileum appeared normal. Multiple small and large-mouthed diverticula were found from sigmoid to descending colon. There was no evidence of diverticular bleeding. Non-bleeding external and internal hemorrhoids were found during retroflexion. The hemorrhoids were medium-sized. Impression: - The examined portion of the ileum was normal. - Moderate diverticulosis from sigmoid to descending colon. There was no evidence of diverticular bleeding. - Non-bleeding external and internal hemorrhoids. - No specimens collected. Recommendation: - Patient has a contact number available for emergencies. The signs and symptoms of potential delayed complications were discussed with the patient. Return to normal activities tomorrow. Written discharge instructions were provided to the patient. - Full liquid diet for 1 day, then advance as tolerated to high fiber diet. - Continue present medications. - Repeat colonoscopy is not recommended due to current age (66 years or older) depending on clinical and functional status. - Return to GI clinic in [facility] (address [address], [address], [place] [address]) in 4 -- 6 weeks. Please call GI clinic @ [phone] for apppointment date and time. - Return to primary care physician. Hunter Henry MD Hunter Henry MD 02/12/2019 1:57:46 PM Electronically signed by Hunter Henry MD Number of Addenda: 0 Note Initiated On: 02/12/2019 12:58 PM Estimated Blood Loss: Estimated blood loss was minimal.
[2019-02-12 14:18] VITALS: BP 179/85
== END 2019-02-12 14:28 | disposition home or self-care (01) ==
LOC: M OPP 09:06
PROVIDERS: ATTEND Internal Medicine Gastroenterology
DX: Z12.11 Encounter for screening for malignant neoplasm of colon (principal); K57.30 Diverticulosis of large intestine without perforation or abscess without bleeding; K64.8 Other hemorrhoids; R13.10 Dysphagia, unspecified; K20.8 Other esophagitis; K29.70 Gastritis, unspecified, without bleeding; R00.8 Other abnormalities of heart beat; I10 Essential (primary) hypertension; E78.5 Hyperlipidemia, unspecified; E03.9 Hypothyroidism, unspecified; M19.90 Unspecified osteoarthritis, unspecified site; M54.89 Other dorsalgia; M54.2 Cervicalgia; F32.9 Major depressive disorder, single episode, unspecified; F41.9 Anxiety disorder, unspecified; Z86.73 Personal history of transient ischemic attack (TIA), and cerebral infarction without residual deficits; Z92.3 Personal history of irradiation; Z85.01 Personal history of malignant neoplasm of esophagus; R06.83 Snoring; R35.0 Frequency of micturition; R32 Unspecified urinary incontinence; F12.10 Cannabis abuse, uncomplicated; Z79.899 Other long term (current) drug therapy
CPT/HCPCS: 43239; 43249; 88305; G0121; J3010

== ENCOUNTER 2019-02-21 09:37 | Inpatient (IN) | payer MEDICARE ==
[~2019-02-21] VITALS: Ht 167.6 cm; Wt 53.9 kg
[~2019-02-21 09:37] MED LIST changes: +ASPIRIN 81 MG ENTERIC TAB PO SCH
[2019-02-21] MEDS ORDERED: ONDANSETRON 4MG/2ML VIAL (J2405) As Ordered ONE (09:41)
[2019-02-21] MEDS ORDERED: NS 1,000 ML IV SCH (09:43)
[2019-02-21] MEDS ORDERED: ONDANSETRON 4MG/2ML VIAL (J2405) IV ONE ×3 (09:45→21:40)
[2019-02-21] MEDS ORDERED: LABETALOL HCL 100 MG/20 ML VIAL IV STA ×3 (09:50→11:27)
[2019-02-21] MEDS ORDERED: FLOM0.4C39 PO (09:56)
[2019-02-21] MEDS ORDERED: METO1TAB32 PO (09:56)
[2019-02-21] MEDS ORDERED: PANT40TA3 PO (09:56)
[2019-02-21] MEDS ORDERED: METOCLOPRAMIDE INJ 10MG/2ML VIAL (J2765) IV ONE (10:15)
[2019-02-21 10:24] LABS: BASO % 0.3 % (0.0-1.0); EOS % 0.1 % (0.0-3.0); HEMATOCRIT 46.9 % (42.0-52.0); HEMOGLOBIN 16.5 g/dl (13.5-17.5); LYMPH # 0.5 10^3/uL (1.5-5.0); LYMPH % 3.8 % (24.0-44.0); MEAN CORPUSCULAR HEMOGLOBIN 32.5 pg (27.0-33.0); MEAN CORPUSCULAR HGB CONC 35.2 g/dl (32.0-36.5); MEAN CORPUSCULAR VOLUME 92.3 fl (80.0-96.0); MONO # 0.6 10^3/uL (0.0-0.8); MONO % 3.9 % (0.0-5.0); NEUTROPHILS # 13.2 10^3/uL (1.5-8.5); NEUTROPHILS % 91.3 % (36.0-66.0); PLATELET COUNT, AUTOMATED 141 10^3/uL (150-450); RED BLOOD COUNT 5.08 10^6/uL (4.30-6.10); WHITE BLOOD COUNT 14.4 10^3/uL (4.0-10.0)
--- NOTE | 2019-02-21 10:33 | REP ---
CT brain without contrast: History: Altered mental status. Comparison head CT study January 30, 2018. CT findings: Digital preliminary activities director scouting radiograph is unremarkable. Bone window settings demonstrate an intact bony calvarium. There is mild mucosal thickening affecting the right maxillary sinus. No other evidence of sinusitis is seen. No intraorbital abnormality is noted. There is mild generalized volume loss again noted. There is no evidence of intracranial hemorrhage. There is a small low density area in the left cerebellar hemisphere consistent with lacunar infarct unchanged from prior studies. No new infarct is seen. No extra-axial fluid collection, mass or midline shift is observed. Impression: Generalized atrophy. Old cerebellar lacunar infarct. Some vascular calcification is seen. No acute intracranial abnormality. Electronically Signed by Ozzie Perez MD 02/21/2019 12:58 P
[2019-02-21 10:53] LABS: OSMOLALITY SERUM 275 MOSM/KG (280-301)
[2019-02-21 10:59] LABS: ALBUMIN 4.8 GM/DL (3.2-5.2); ALT/SGPT 19 U/L (12-78); BILIRUBIN,DIRECT 0.3 MG/DL (0.0-0.2); BILIRUBIN,TOTAL 0.9 MG/DL (0.2-1.0); BLOOD UREA NITROGEN 8 MG/DL (7-18); CALCIUM LEVEL 9.3 MG/DL (8.8-10.2); CARBON DIOXIDE LEVEL 26 MEQ/L (21-32); CHLORIDE LEVEL 95 MEQ/L (98-107); CK-MB VALUE MASS 2.7 NG/ML (<3.6); CPK CREATINE PHOSPHOKINASE 86 U/L (39-308); CREATININE FOR GFR 1.14 MG/DL (0.70-1.30); GLOMERULAR FILTRATION RATE > 60.0 (>42); GLUCOSE, FASTING 155 MG/DL (70-100); MB/CK RELATIVE INDEX 3.14 (< OR =4); POTASSIUM SERUM 3.6 MEQ/L (3.5-5.1); SODIUM LEVEL 131 MEQ/L (136-145); TOTAL PROTEIN 8.3 GM/DL (6.4-8.2); TROPONIN I < 0.02 NG/ML (< 0.10)
--- NOTE | 2019-02-21 11:10 | REP ---
CHEST, SINGLE VIEW: There is no evidence of acute infiltrate. No pleural effusion is seen. The heart is normal in size. The mediastinal silhouette is unremarkable. The visualized osseous structures are intact. IMPRESSION: No acute pulmonary disease. Unreviewed
[2019-02-21 11:51] VITALS: BP 188/100
[2019-02-21] MEDS ORDERED: METO1TAB7 PO (12:10)
[2019-02-21] MEDS ORDERED: EQL400CA9 PO (12:10)
--- NOTE | 2019-02-21 12:11 | ECGEPIP ---
[facility] - ED Test Date: 2019-02-21 Pat Name: NELIDA PABLO Department: Room: - Gender: Male Onion Tier: : 1945 Requested By: Judy Espinosa Order Number: [id number] Reading MD: Judy Espinosa Measurements Intervals Tucker Rate: 78 P: 58 RI: 146 QRS: 33 QRSD: 100 T: 59 QT: 367 QTc: 419 Interpretive Statements SINUS RHYTHM NSTTW abnormalities SIMILAR 01/31/18 Electronically Signed on 02-21-2019 12:11:10 EDT by Judy Espinosa
[2019-02-21] MEDS ORDERED: ACETAMINOPHEN TAB 650MG DOSE (2X325MG) PO PRN (12:45)
[2019-02-21] MEDS ORDERED: LABETALOL HCL 100 MG/20 ML VIAL IV PRN (12:45)
[2019-02-21] MEDS ORDERED: MOM 30ML SUSPENSION UDC PO PRN (12:45)
[2019-02-21] MEDS ORDERED: NS 1,000 ML IV ONE (12:45)
[2019-02-21 14:30] VITALS: BP 176/76
[2019-02-21 15:28] LABS: CK-MB VALUE MASS 2.6 NG/ML (<3.6); MB/CK RELATIVE INDEX 3.47 (< OR =4); TROPONIN I 0.16 NG/ML (< 0.10)
[2019-02-21 16:00] VITALS: BP 163/91
[2019-02-21] MEDS ORDERED: ASPIRIN 81 MG CHEW TABLET PO ONE (18:00)
--- NOTE | 2019-02-21 18:43 | HPEPDOC ---
[facility] Medical History & Physical Date of Admission Feb 21, 2019 Date of Service: Feb 21, 2019 History and Physical CHIEF COMPLAINT: Headache HISTORY OF PRESENT ILLNESS: Mr. Mathews is a 73-year-old male with a past medical history significant for stroke, GERD, hypertension, hyperlipidemia, CAD, who presents to the ED the chief complaint of headache. He states his headache began last night spontaneously, and he rates his pain at a 8 out of 10. He describes this pain as sharp, located in a frontal distribution, and constant in presentation. He states no exacerbating or remitting factors. He states he did not lose consciousness last night or today, but it should be noted that he was brought to the ED by EMS today after being found in his bathtub by his nephew. It is unclear why his nephew deemed medical evaluation necessary for this patient. When asked about the circumstances prior to his admission Mr. Mathews was unclear in his responses and was stuporous throughout examination. Patient is a poor historian regarding the circumstances of his admission. He states he was cold at his house and to a warm bath to warm up when his headache present. Mr. Mathews also complains of dry mouth and she states began after his radiation treatment for throat cancer in 2014. Mr. Mathews denies recent seizure-like episodes, vomiting, shortness of breath, and chest pain. On presentation to the emergency department the patient was found to have a BP of 230/107. He was not tachycardic. He had no complaint of chest pain or shortness of breath. The patient was given IV labetalol 20mg. Patient had received a Head CT which demonstrated Generalized atrophy and an old cerebellar lacunar infarct with some vascular calcification seen but otherwise no acute intracranial abnormality. Patient was scheduled to receive an MRI for possibility of cerebrovascular accident and is currently pending. Hospitalist service was contacted for for evaluation and management of the patient. PAST MEDICAL HISTORY: Throat cancer, finished radiation in May 2014. Stroke 2014 Shingles 2016 GERD Hypertension Hyperlipidemia CAD PAST SURGICAL HISTORY: Colonoscopy 2007. Tonsillar cancer, surgical removal 2010 teeth extraction cataract surgery in both eyes SOCIAL HISTORY: Marital status: Single. 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 Stated a possible period of life when he was younger in teens and 20s and 30s where he might have drank more heavily but was unable to give a clear history. Illicit drug use: Admits to marijuana usage. IV drug use: Denies Other relevant social factors: Admits to drinking a small pot of coffee per day, he states is 2 cups of coffee. FAMILY HISTORY: Father: , 66 years, Brain cancer Mother: , 87 years, CHF, heart disease Siblings:. One brother alive, CABG surgery. One sister alive, CHF ALLERGIES: Denies med or food allergies. REVIEW OF SYSTEMS: Patient was stuporous upon exam and was mildly unresponsive to questioning. Make him a poor historian. CONSTITUTIONAL: No fevers, chills, weight loss HEENT: Positive for headache and dry mouth.Denies recent vision or hearing changes. States he doesn't hear well out of his left ear. CARDIOVASCULAR: Denies chest pain RESPIRATORY: Denies shortness of breath or cough. GASTROINTESTINAL: Positive for nausea. Denies abdominal pain, changes in stool consistency/frequency/caliber/color NEUROLOGICAL: Positive for headache. Denies seizures, loss of consciousness. ENDOCRINE: States he has been feeling cold recently 10 Point review of systems negative - other than stated above / in HPI HOME MEDICATIONS: Please see below. PHYSICAL EXAMINATION: VITAL SIGNS: Temperature 100.5, pulse, 91, respiratory rate 18, blood pressure 176/76, pulse oximetry 96% on room air. GENERAL APPEARANCE: Patient is a thin, elderly male lying in his bed in a hospital gown with blankets wrapped around. He appears mildly unkempt. HEENT: JVD noted. No scleral icterus noted, no jaundice, , facial musculature appears symmetrical bilaterally, facial edema. CARDIOVASCULAR: Heart rate 88 and irregular. No murmurs, rubs, knocks heard. EKG shows sporadic premature ventricular contractions. LUNGS: Lungs clear to auscultation bilaterally with vesicular breath sounds heard. No crackles, wheezing, rhonchi noted. ABDOMEN: No tenderness to palpation, bruising, organomegaly, distention, or bruits noted on exam MUSCULOSKELETAL: Patient is a thin, elderly male but negative for significant atrophy. EXTREMITIES: No edema noted. No rashes, bruising, clubbing, jaundice noted. Peripheral pulses palpable and equal. NEUROLOGICAL: Cranial nerves II through XII intact. Muscle strength testing shows 5/5 strength in upper and lower extremities bilaterally in both flexion and extension. Brachioradialis, biceps, triceps, Achilles reflexes 2/2. No asymmetry in muscle tone, spasticity, hyperreflexia noted. PSYCHIATRIC: Patient mildly irritable and somnolent/stuporous on exam. LABORATORY DATA: See below. IMAGING: CT and chest x-ray performed on admission. Findings were as follows: Head CT-Generalized atrophy. Old cerebellar lacunar infarct. Some vascular calcification is seen. No acute intracranial abnormality. Chest x-ray:No acute pulmonary disease. MICROBIOLOGY: Please see below. ASSESSMENT: #Hypertension: Patient's blood pressure was 230/107 on admission and was 190/85 upon examination by hospital staff. Prior to examination by hospitalist. Patient was given 20 mg labetalol IV, followed by 10 mg labetalol IV to lower his blood pressure. Patient has history of hypertension and was taking metoprolol 25 mg ER daily. Home meds will be held and labetalol 10 mg when necessary IV will be given if SBP >200. Low sodium diet. #Headache/AMS: Patient reports headache beginning last night, rated at 8 out of 10 pain level. Likely related to his hypertensive status and monitor for symptom improvement. Head CT was negative on admission for acute pathology. He reports no loss of consciousness or history of seizure, but was unclear regarding the circumstances of his admission to the hospital. Per ED, patient was found in bathtub by his nephew subsequent EMS contact regarding Patient transferred to hospital. It remains unclear to whether or not the patient had altered mental status and why his nephew deemed hospital admission necessary for this patient. Carboxyhemoglobin normal, indicating no carbon dioxide poisoning. #Premature ventricular contractions: Upon admission, patient was noted to have PVCs on EKG. EKG was repeated several hours later and showed PVCs. Telemetry shows bigeminy and trigeminy. Patient will continue to be monitored on telemetry. He progressed into nonsustained V. tach consider 25 mg of metoprolol. #Elevated troponin 1: Upon admission, patient's troponin I was negative, but was found to be elevated to 0.16 upon retesting. Possible causes include demand ischemia from tachycardic heart rate, hypertensive emergency indicating direct parenchymal disease. EKGs on admission and repeated the afternoon were negative for STEMI or other pathology. Patient will be continued on telemetry. Serial troponins will be drawn. Patient is being given aspirin 324 mg by mouth chewable for cardioprotective intent. Has denied any symptoms; no chest pain, SOB or palpitations #Likely non-anion gap lactic acidosis: Patient's lactate minorly elevated at 2.4 and respiratory rate 18. ABG is not drawn. Will obtain serial lactate levels and monitor for signs of worsening acidosis. #Hyponatremia: Sodium 131, potassium 3.6 upon admission. Patient is currently receiving 1 L normal saline at 50 mils per hour for rehydration purposes, which should help increase sodium level. #Hypo-osmolality: Patient complains of being thirsty and is likely slightly dehydrated. Patient is receiving 1 L normal saline at 50 mL per hour for rehydration purposes. #Nausea: Pt reports being currently nauseous. This may be due to his pantoprazole use or could indicate possible insidious myocardia ischemia. #Proteinuria, hematuria: Patient has +3 protein on urinalysis. Likely due to hypertensive nephropathy. Also has +1 red blood cells on urinalysis. Creatinine and BUNs are normal. Serial BMPs will be ordered during patient's stay to monitor for kidney. #Elevated TSH: Patient's TSH 4.02 on admission. Patient has a history of hypothyroidism. He takes levothyroxine sodium 50 g tablets at home and will continue to receive medication during his hospital stay. #GERD: Patient is a medical history significant for GERD. Patient is currently being well managed on pantoprazole. #Leukocytosis: Issues white blood cell count 14.4 upon admission today. Differential shows neutrophils at 91.3%. Patient was remains afebrile. However, her temperature has risen to 100.5 as of 2:30 PM. Chest x-ray was negative for acute pathology and Urinalysis showed no white blood cells/nitrates/bacteria. Will continue to monitor and investigate possible etiologies of infection if white blood cell count continues to remain elevated . Patient shows signs of infection. Blood cultures were drawn and are pending. Patient is currently meet ing SIRS criteria based on leukocytosis and fever however there is no discernible source of infection and he is therefore not meeting Sepsis criteria. Patient did have a mildly elevated lactate which is felt to be secondary to volume depletion. Will continue to monitor. #DVT prophylaxis: Patient on Dann's and sequentials. Patient wearing antiembolic stockings. Vital Signs Vital Signs Date Time Temp Pulse Resp B/P (MAP) Pulse Ox O2 Delivery O2 Flow Rate FiO2 02/21/19 14:30 100.5 91 18 176/76 (109) 96 02/21/19 14:21 Room Air Laboratory Data Labs 24H Laboratory Tests 2 02/21/19 10:08: Immature Granulocyte % (Auto) 0.6, White Blood Count 14.4H, Red Blood Count 5.08, Hemoglobin 16.5, Hematocrit 46.9, Mean Corpuscular Volume 92.3, Mean Corpuscular Hemoglobin 32.5, Mean Corpuscular Hemoglobin Concent 35.2, Red Cell Distribution Width 11.9, Platelet Count 141L, Neutrophils (%) (Auto) 91.3H, Lymphocytes (%) (Auto) 3.8L, Monocytes (%) (Auto) 3.9, Eosinophils (%) (Auto) 0.1, Basophils (%) (Auto) 0.3, Neutrophils # (Auto) 13.2H, Lymphocytes # (Auto) 0.5L, Monocytes # (Auto) 0.6, Eosinophils # (Auto) 0.0, Basophils # (Auto) 0.0, Nucleated Red Blood Cells % (auto) 0.0, Anion Gap 10, Glomerular Filtration Rate > 60.0, Osmolality 275L, Calcium Level 9.3, Aspartate Amino Transf (AST/SGOT) 24, Alanine Aminotransferase (ALT/SGPT) 19, Alkaline Phosphatase 78, Total Bilirubin 0.9, Direct Bilirubin 0.3H, Ammonia 19, Total Creatine Kinase 86, Creatine Kinase MB 2.7, Creatine Kinase MB Relative Index 3.14, Troponin I < 0.02, Total Protein 8.3H, Albumin 4.8, Albumin/Globulin Ratio 1.37, Thyroid Stimulating Hormone (TSH) 4.020H 02/21/19 10:16: POC Lactate (Misc Panel) 2.50*H 02/21/19 11:56: Carboxyhemoglobin 1.1 02/21/19 14:46: Lactic Acid Level 2.4*H 02/21/19 14:47: Total Creatine Kinase 75, Creatine Kinase MB 2.6, Creatine Kinase MB Relative Index 3.47, Troponin I 0.16#H 02/21/19 15:14: Urine Color YELLOW, Urine Appearance CLEAR, Urine pH 7.0, Urine Specific Drury 1.011, Urine Protein 3+H, Urine Glucose (UA) 1+H, Urine Ketones TRACEH, Urine Blood 1+H, Urine Nitrite NEGATIVE, Urine Bilirubin NEGATIVE, Urine Urobilinogen 0.2, Urine Leukocyte Esterase NEGATIVE, Urine WBC (Auto) 0, Urine RBC (Auto) 3, Urine Hyaline Casts (Auto) 0, Urine Bacteria (Auto) NEGATIVE, Urine Squamous Epithelial Cells 0, Urine Mucus (Auto) SMALL, Urine Sperm (Auto) CBC/BMP Laboratory Tests 02/21/19 10:08 Red Blood Count 5.08, Mean Corpuscular Volume 92.3, Mean Corpuscular Hemoglobin 32.5, Mean Corpuscular Hemoglobin Concent 35.2, Red Cell Distribution Width 11.9, Neutrophils (%) (Auto) 91.3 H, Lymphocytes (%) (Auto) 3.8 L, Monocytes (%) (Auto) 3.9, Eosinophils (%) (Auto) 0.1, Basophils (%) (Auto) 0.3, Neutrophils # (Auto) 13.2 H, Lymphocytes # (Auto) 0.5 L, Monocytes # (Auto) 0.6, Eosinophils # (Auto) 0.0, Basophils # (Auto) 0.0 Microbiology Microbiology 02/21/19 Blood Culture, Received Pending Home Medications Scheduled Aspirin (Aspir 81) 81 Mg Tablet.dr, 81 MG PO DAILY Cholecalciferol (Vitamin D3) (Vitamin D3) 400 Unit Capsule, 800 UNIT PO DAILY Levothyroxine Sodium (Levothyroxine Sodium) 50 Mcg Tab, 50 MCG PO DAILY Losartan Potassium (Losartan Potassium) 100 Mg Tab, 100 MG PO DAILY Metoprolol Succinate (Metoprolol Succinate) 50 Mg Tab.er.24h, 50 MG PO DAILY Pantoprazole Sodium (Pantoprazole Sodium) 40 Mg Tablet.dr, 40 MG PO DAILY Simvastatin (Simvastatin) 40 Mg Tab, 40 MG PO QHS Tamsulosin HCl (Flomax) 0.4 Mg Capsule, 0.4 MG PO DAILY Scheduled PRN Oxycodone HCl/Acetaminophen (Oxycodone-Acetaminophen 5-325) 1 Tab Tab, 1 TAB PO Q8H PRN for PAIN Allergies Coded Allergies: ENVIROMENTAL (Verified Allergy, Unknown, 01/30/19) A-FIB/CHADSVASC A-FIB History Current/History of A-Fib/PAF?: No Current PO Anticoag Therapy: No GME ATTESTATION GME ATTESTATION My faculty preceptor for this patient encounter was physically present during the encounter and was fully available. All aspects of the patient interview, examination, medical decision making process, and medical care plan development were reviewed and approved by the faculty preceptor. The faculty preceptor is aware and concurs with the plan as stated in the body of this note and will attest to such by his/her cosignature. ATTENDING NOTE I, Emma Johns, have independently examined this patient and performed my own physical exam, as well as reviewed the documentation and edited where necessary. I have discussed in detail with the resident / student the findings and plan of treatment as documented by the resident / student and edited their note. I agree with their findings and treatment plan and have edited their documentation. I will continue to follow the patient during this hospital stay. BEA CLARK OMS-3 Feb 21, 2019 18:42 KATHI MAZA DO Feb 21, 2019 18:56 EMMA JOHNS MD Feb 21, 2019 21:20
[2019-02-21 19:20] LABS: CK-MB VALUE MASS 2.9 NG/ML (<3.6); MB/CK RELATIVE INDEX 3.22 (< OR =4); TROPONIN I 0.4 NG/ML (< 0.10)
[2019-02-21 20:00] VITALS: BP 180/90
[2019-02-21] MEDS ORDERED: HEPARIN DRIP 25,000 UNITS in IV 1 EA IV SCH ×4 (20:28)
[2019-02-21] MEDS ORDERED: HEPARIN SOD (PORCINE) 5000 UNITS/ML VIAL IV PRN (20:30)
[2019-02-21] MEDS ORDERED: HEPARIN 25,000 UNITS/250 ML D5W BAG (100 UNITS/ML) As Ordered ONE (20:39)
[2019-02-21] MEDS ORDERED: SIMVASTATIN 40 MG TAB PO SCH (21:00)
[2019-02-21] MEDS ORDERED: DOCUSATE SODIUM 100 MG CAP PO SCH (21:00)
--- NOTE | 2019-02-21 21:32 | ECHO ---
DATE OF PROCEDURE: 02/21/2019 Date of 1945 Age: 73 REFERRING PHYSICIAN: Dr. Zabala PATIENT LOCATION: Room 3212 REASON FOR ECHOCARDIOGRAM: Abnormal EKG. 2D MEASUREMENTS: IVS: 1.2 cm LV: 4.5 cm LVPW: 1.0 cm LA: 3.1 cm Aorta: 3.2 IVC: 1.2 cm DOPPLER MEASUREMENTS: Peak velocity across the aortic valve: 0.86 m/s Peak velocity across the LVOT: 0.73 m/s Mitral E: 0.72, Mitral A: 0.79 with a ratio of 0.9. 2D COMMENTS: 1. Normal left ventricular size, wall thickness, and normal global left ventricular systolic function. The estimated left ventricular systolic ejection fraction is 60-65%. 2. Subjectively, the left atrium appeared to be mildly enlarged. There was an echogenic structure noted in the right atrium close to the annulus, noted particularly in the apical four chamber view. Normal right ventricle. 3. The atrial septum appeared to be normal without evidence of defect or shunt. 4. Normal aortic root. 5. No pericardial effusion seen. 6. The aortic valve, mitral valve, and tricuspid valve appeared to be normal. The pulmonic valve and proximal pulmonary artery branches were not well visualized. 7. The inferior vena cava was normal in size, central venous pressure is most likely normal. DOPPLER: Only mild mitral regurgitation detected. Abnormal relaxation pattern was noted across the mitral valve leaflets as well as the mitral valve annulus consistent with features of grade 1 left ventricular diastolic dysfunction. IMPRESSION 1. Normal global left ventricular systolic function. There is some features of grade 1 left ventricular diastolic dysfunction manifested by abnormal relaxation. 2. Mild mitral regurgitation with probably mildly enlarged left atrium. 3. There was an echogenic structure noted in the right atrium particularly in the four chamber apical views. A transesophageal echocardiogram is recommended for further evaluation.
[2019-02-22] MEDS ORDERED: LEVOTHYROXINE 50MCG TABLET (0.05MG) PO SCH (06:00)
[2019-02-22] MEDS ORDERED: TAMSULOSIN 0.4 MG CAP PO SCH (09:00)
[2019-02-22] MEDS ORDERED: PANTOPRAZOLE 40MG TAB (PROTONIX) PO SCH (09:00)
--- NOTE | 2019-02-22 15:02 | DS.PDOC ---
Discharge Summary General Date of Admission Feb 21, 2019 at 12:27 Date of Discharge 02/21/2019 Attending Physician: ARISTIDES RODRÍGUEZ MD Discharge Summary PROCEDURES PERFORMED DURING STAY: None ADMITTING DIAGNOSES: Hypertensive emergency Headache Premature ventricular contraction with trigeminy / bigeminy Elevated troponin - possibly 2/2 NSTEMI Lactic acidosis Hyponatremia Hyperosmolality Nausea Proteinuria Elevated TSH GERD Leukocytosis DISCHARGE DIAGNOSES: NSTEMI Elevated troponin Hypertensive emergency Premature ventricular contraction Lactic acidosis Leukocytosis Headache Hyponatremia Hyperosmolality Nausea Proteinuria Elevated TSH GERD COMPLICATIONS/CHIEF COMPLAINT: Headache,Hypertensive Urgency. HISTORY OF PRESENT ILLNESS: Mr. Mathews is a 73-year-old male with a past medical history significant for stroke, GERD, hypertension, hyperlipidemia, CAD, who presented to the ED the chief complaint of headache. He stated his headache began last night spontaneously, and he rated his pain at a 8 out of 10. He described this pain as sharp, located in a frontal distribution, and constant in presentation. He stated no exacerbating or remitting factors. He stated he did not lose consciousness last night or today, but it should be noted that he was brought to the ED by EMS today after being found in his bathtub by his nephew. It is unclear why his nephew deemed medical evaluation necessary for this patient. Whe n asked about the circumstances prior to his admission Mr. Mathews was unclear in his responses and was stuporous throughout examination. Patient is a poor historian regarding the circumstances of his admission. He stated he was cold at his house and to a warm bath to warm up when his headache present. Mr. Mathews also complains of dry mouth that began after his radiation treatment for throat cancer in 2014. Mr. Mathews denied recent seizure-like episodes, vomiting, shortness of breath, and chest pain. On presentation to the emergency department the patient was found to have a BP of 230/107. He was not tachycardic. He had no complaint of chest pain or shortness of breath. The patient was given IV labetalol 20mg. Patient had received a Head CT which demonstrated Generalized atrophy and an old cerebellar lacunar infarct with some vascular calcification seen but otherwise no acute intracranial abnormality. Patient was scheduled to receive an MRI for possibility of cerebrovascular accident and was currently pending. Hospitalist service was contacted for for evaluation and management of the patient. HOSPITAL COURSE: Patient was admitted to the hospital and placed on telemetry for monitoring. MRI of the patient's brain was ordered to rule out any further ischemia. Patient's home blood pressure medications were held pending MRI results. Repeat EKG and troponins were drawn at 1447 which demonstrated a mild elevation in troponin of 0.16. EKG at that time was remarkable for intermittent PVCs but no ST segment changes. Telemetry noted the patient would have intermittent trigeminy and bigeminy. At approximately 1800, patient began complaining of nausea but continued to deny any chest pain, shortness of breath or difficulty breathing. Repeat troponins were drawn and found to be evaluated 0.40, more than double his previous measurement 3 hours earlier. A stat EKG was ordered and evaluated by the night team, who diagnosed the patient with an NSTEMI, started the patient on a heparin drip, and transferred the patient to [facility] for further workup and evaluation. Prior to departure, patient was stable and continued to decline any chest pain or discomfort. DISCHARGE MEDICATIONS: Please see below. ALLERGIES: Please see below. PHYSICAL EXAMINATION ON DISCHARGE: VITAL SIGNS: Please see below. GENERAL APPEARANCE: Patient is a thin, elderly male lying in his bed in a hospital gown with blankets wrapped around. He appears mildly unkempt. HEENT: JVD noted. No scleral icterus noted, no jaundice, , facial musculature appears symmetrical bilaterally, facial edema. CARDIOVASCULAR: Heart rate 88 and irregular. No murmurs, rubs, knocks heard. EKG shows sporadic premature ventricular contractions. LUNGS: Lungs clear to auscultation bilaterally with vesicular breath sounds heard. No crackles, wheezing, rhonchi noted. ABDOMEN: No tenderness to palpation, bruising, organomegaly, distention, or bruits noted on exam MUSCULOSKELETAL: Patient is a thin, elderly male but negative for significant atrophy. EXTREMITIES: No edema noted. No rashes, bruising, clubbing, jaundice noted. Peripheral pulses palpable and equal. NEUROLOGICAL: Cranial nerves II through XII intact. Muscle strength testing shows 5/5 strength in upper and lower extremities bilaterally in both flexion and extension. Brachioradialis, biceps, triceps, Achilles reflexes 2/2. No asymmetry in muscle tone, spasticity, hyperreflexia noted. PSYCHIATRIC: Patient mildly irritable and somnolent/stuporous on exam. LABORATORY DATA: Please see below. IMAGING: Head CT (02/21/19): Generalized atrophy. Old cerebellar lacunar infarct. Some vascular calcification is seen. No acute intracranial abnormality. Chest x-ray (02/21/19): No acute pulmonary disease. Echocardiogram (02/21/19): Normal global left ventricle systolic function. There is some features of grade 1 left ventricular diastolic dysfunction manifested by abnormal relaxation. Mild mitral regurgitation with probably mild enlargement of the left atrium. There was an echogenic structure located in the right atrium particularly in the 4 chamber apical views. A transesophageal echocardiogram was recommended for further evaluation. PROGNOSIS: Overall guarded ACTIVITY: As recommended by transfer team DIET: As recommended by transfer team DISCHARGE PLAN: - Patient diagnosed with NSTEMI an increasing troponin and serial cardiac markers. - Patient transferred to a higher level of care for further evaluation and management - This was discussed with the patient in detail, as well as his diagnosis, and he was agreeable with the plan. DISPOSITION: Transfer to [facility]. DISCHARGE CONDITION: Stable TIME SPENT ON DISCHARGE: 35 minutes. Vital Signs/I&Os Vital Signs Date Time Temp Pulse Resp B/P (MAP) Pulse Ox O2 Delivery O2 Flow Rate FiO2 02/21/19 20:00 98.5 75 16 180/90 (120) 96 02/21/19 14:21 Room Air I&O- Last 24 Hours up to 6 AM 02/22/19 06:00 Intake Total 690 ml Output Total 275 ml Balance 415 ml Laboratory Data Labs 24H Laboratory Tests 2 02/21/19 14:46: Lactic Acid Level 2.4*H 02/21/19 14:47: Total Creatine Kinase 75, Creatine Kinase MB 2.6, Creatine Kinase MB Relative Index 3.47, Troponin I 0.16#H 02/21/19 15:14: Urine Color YELLOW, Urine Appearance CLEAR, Urine pH 7.0, Urine Specific [place] 1.011, Urine Protein 3+H, Urine Glucose (UA) 1+H, Urine Ketones TRACEH, Urine Blood 1+H, Urine Nitrite NEGATIVE, Urine Bilirubin NEGATIVE, Urine Urobilinogen 0.2, Urine Leukocyte Esterase NEGATIVE, Urine WBC (Auto) 0, Urine RBC (Auto) 3, Urine Hyaline Casts (Auto) 0, Urine Bacteria (Auto) NEGATIVE, Urine Squamous Epithelial Cells 0, Urine Mucus (Auto) SMALL, Urine Sperm (Auto) 02/21/19 18:25: Total Creatine Kinase 90, Creatine Kinase MB 2.9, Creatine Kinase MB Relative Index 3.22, Troponin I 0.40#H Microbiology Microbiology 02/21/19 Blood Culture, Received Pending Discharge Medications Scheduled Aspirin (Aspir 81) 81 Mg Tablet.dr, 81 MG PO DAILY, (Reported) Cholecalciferol (Vitamin D3) (Vitamin D3) 400 Unit Capsule, 800 UNIT PO DAILY, (Reported) Levothyroxine Sodium (Levothyroxine Sodium) 50 Mcg Tab, 50 MCG PO DAILY, (Reported) Losartan Potassium (Losartan Potassium) 100 Mg Tab, 100 MG PO DAILY, (Reported) Metoprolol Succinate (Metoprolol Succinate) 50 Mg Tab.er.24h, 50 MG PO DAILY, (Reported) Pantoprazole Sodium (Pantoprazole Sodium) 40 Mg Tablet.dr, 40 MG PO DAILY, (Reported) Simvastatin (Simvastatin) 40 Mg Tab, 40 MG PO QHS, (Reported) Tamsulosin HCl (Flomax) 0.4 Mg Capsule, 0.4 MG PO DAILY, (Reported) Scheduled PRN Oxycodone HCl/Acetaminophen (Oxycodone-Acetaminophen 5-325) 1 Tab Tab, 1 TAB PO Q8H PRN for PAIN, (Reported) Allergies Coded Allergies: ENVIROMENTAL (Verified Allergy, Unknown, 01/30/19) GME ATTESTATION GME ATTESTATION My faculty preceptor for this patient encounter was physically present during the encounter and was fully available. All aspects of the patient interview, examination, medical decision making process, and medical care plan development were reviewed and approved by the faculty preceptor. The faculty preceptor is aware and concurs with the plan as stated in the body of this note and will attest to such by his/her cosignature. ATTENDING NOTE Patient was transferred at 2218 to [facility] for Cardiac catheter ization. Patient was not examined by myself at that time. Night time provider, Dr. Gutiérrez was present during the transfer process. ARNOL HYMAN DO Feb 22, 2019 15:02 ARISTIDES RODRÍGUEZ MD Feb 22, 2019 15:51
== END 2019-02-21 22:18 | disposition short-term general hospital (02) | DRG 281 ==
LOC: EDBD 09:37 → M ED 09:37 → M ED INP 12:27 → M PCU 14:33
PROVIDERS: ADMIT Internal Medicine; ATTEND Internal Medicine
DX: I16.1 Hypertensive emergency (principal); I21.4 Non-ST elevation (NSTEMI) myocardial infarction; E87.2 Acidosis; E87.1 Hypo-osmolality and hyponatremia; D72.829 Elevated white blood cell count, unspecified; K21.9 Gastro-esophageal reflux disease without esophagitis; Z86.73 Personal history of transient ischemic attack (TIA), and cerebral infarction without residual deficits; E78.5 Hyperlipidemia, unspecified; I25.10 Atherosclerotic heart disease of native coronary artery without angina pectoris; Z79.82 Long term (current) use of aspirin; Z79.899 Other long term (current) drug therapy; Z85.818 Personal history of malignant neoplasm of other sites of lip, oral cavity, and pharynx; R51 Headache; R31.9 Hematuria, unspecified; E03.9 Hypothyroidism, unspecified

== ENCOUNTER → 2019-03-05 | Outpatient (REF) | payer MEDICARE ==
[~2019-03-05] MED LIST changes: -ASPIRIN 81 MG ENTERIC TAB PO SCH; +EQL400CA9 PO; +FLOM0.4C39 PO; +METO1TAB32 PO; +METO1TAB7 PO
== END ==
LOC: M SFHCCAPE 08:34
PROVIDERS: ATTEND Physician Assistant
DX: D64.9 Anemia, unspecified (principal); I10 Essential (primary) hypertension; E03.9 Hypothyroidism, unspecified; Z53.8 Procedure and treatment not carried out for other reasons

== ENCOUNTER → 2019-03-28 | Outpatient (REF) | payer MEDICARE ==
[2019-03-28 16:49] LABS: BASO # 0.1 10^3/uL (0.0-0.2); BASO % 0.6 % (0.0-1.0); EOS # 0.5 10^3/uL (0.0-0.5); EOS % 5.6 % (0.0-3.0); HEMATOCRIT 40.4 % (42.0-52.0); HEMOGLOBIN 13.5 g/dl (13.5-17.5); LYMPH # 0.8 10^3/uL (1.5-5.0); LYMPH % 8.9 % (24.0-44.0); MEAN CORPUSCULAR HEMOGLOBIN 32.2 pg (27.0-33.0); MEAN CORPUSCULAR HGB CONC 33.4 g/dl (32.0-36.5); MEAN CORPUSCULAR VOLUME 96.4 fl (80.0-96.0); MONO # 0.7 10^3/uL (0.0-0.8); MONO % 8.7 % (0.0-5.0); NEUTROPHILS # 6.4 10^3/uL (1.5-8.5); PLATELET COUNT, AUTOMATED 147 10^3/uL (150-450); RED BLOOD COUNT 4.19 10^6/uL (4.30-6.10); WHITE BLOOD COUNT 8.4 10^3/uL (4.0-10.0)
[2019-03-28 17:00] LABS: ALBUMIN 4.2 GM/DL (3.2-5.2); BILIRUBIN,TOTAL 0.7 MG/DL (0.2-1.0); CALCIUM LEVEL 8.8 MG/DL (8.8-10.2); CREATININE FOR GFR 1.43 MG/DL (0.70-1.30); FREE T4 1.13 NG/DL (0.76-1.46); GLOMERULAR FILTRATION RATE 51.8 (>42); POTASSIUM SERUM 4.6 MEQ/L (3.5-5.1); THYROID STIMULATING HORMONE 3.32 uIU/ML (0.358-3.740); TOTAL PROTEIN 7.3 GM/DL (6.4-8.2)
== END ==
LOC: M SFHCCAPE 08:12
PROVIDERS: ATTEND Physician Assistant
DX: E55.9 Vitamin D deficiency, unspecified (principal); D64.9 Anemia, unspecified; I10 Essential (primary) hypertension; E03.9 Hypothyroidism, unspecified

== ENCOUNTER → 2019-03-30 | Outpatient (CLI) | payer MEDICARE, MEDICAID ==
--- NOTE | 2019-04-10 04:32 | ECWPNPC ---
PATIENT NAME: NELIDA PABLO : 1945 GENDER: MALE VISIT DATE: 03/30/2019 DISCHARGE DATE: 03/30/19 1353 VISIT LOCKED DATE TIME: PHYSICIAN: JABIER JENSEN MD RESOURCE: JABIER JENSEN MD REASON FOR APPOINTMENT 1. POST HERPETIC NEURALGIA AND CERVICALGIA HISTORY OF PRESENT ILLNESS PAIN SCREENING: PATIENT HAS A COMPLAINT OF ACUTE OR CHRONIC PAIN :YES 73 YEAR OLD MALE PATIENT WITH A HISTORY OF CHRONIC NECK AND CHEST PAIN. THE PATIENT DESCRIBES THE PAIN BURNING, STABBING, AND CONTINUOUS WITH A PAIN SCORE OF 5-10/10 DEPENDING ON PHYSICAL ACTIVITY. THE PATIENT STATES HE HAS A HISTORY OF SHINGLES AND POST HERPETIC NEURALGIA. THE PATIENT REPORTS EXPERIENCING PAIN OVER MULTIPLE AREAS OF HIS BODY, INCLUDING HIS NECK, CHEST, AND ANKLES. THE PATIENT SAYS HE IS EXPERIENCING DISCOMFORT IN HIS MOUTH DUE TO PULLED TEETH AND INFECTIONS. THE PATIENT SAYS AT THE MOMENT IT IS NOT FEASIBLE FOR HIM TO TAKE CARE OF HIS SITUATION. PATIENT DENIES UNEXPLAINABLE WEIGHT LOSS, FEVER, CHILLS, NEW CHANGES ON HIS URINARY OR BOWEL CONTROL. FALL RISK SCREENING: SCREENING :NO FALLS REPORTED IN THE LAST YEAR CURRENT MEDICATIONS TAKING GABAPENTIN 300 MG CAPSULE 2 CAPSULES ORALLY THREE TIMES DAILY NEEDED TAKING LEVOTHYROXINE SODIUM 50 MCG TABLET 1 TABLET ON AN EMPTY STOMACH IN THE MORNING ORALLY ONCE A DAY TAKING [place] POTASSIUM 100 MG TABLET DIRECTED ORALLY ONCE DAILY TAKING TAMSULOSIN HCL 0.4 MG CAPSULE 1 CAPSULE ORALLY ONCE A DAY TAKING PANTOPRAZOLE SODIUM 40 MG TABLET DELAYED RELEASE 1 TABLET ORALLY ONCE A DAY TAKING METOPROLOL SUCCINATE ER 50 MG TABLET EXTENDED RELEASE 24 HOUR 1 TABLET ORALLY ONCE A DAY TAKING SENNA-DOCUSATE SODIUM 8.6-50 MG TABLET 2 TABLETS IN THE EVENING NEEDED ORALLY ONCE A DAY TAKING MAGNESIUM HYDROXIDE 400 MG/5ML SUSPENSION 5 ML NEEDED ORALLY ONCE DAILY TAKING CHOLECALCIFEROL 1000 UNIT TABLET 1 TABLET ORALLY ONCE A DAY TAKING CALCIUM CARBONATE 500 MG TABLET CHEWABLE 1 TABLET ORALLY ONCE A DAY TAKING ARTIFICIAL TEARS 1.4 % SOLUTION 1 DROP INTO AFFECTED EYE NEEDED OPHTHALMIC FOUR TIMES DAILY NEEDED TAKING OMEPRAZOLE 20 MG CAPSULE DELAYED RELEASE 1 CAPSULE ORALLY ONCE A DAY TAKING PERCOCET 5-325 MG TABLET 1 TABLET NEEDED ORALLY EVERY 8HRS; MDD 2 TAKING SIMVASTATIN 40 MG TABLET TAKE ONE TABLET BY MOUTH EVERY DAY ORALLY TAKING ASPIRIN 81 81 MG TABLET DELAYED RELEASE 1 TABLET ORALLY ONCE A DAY NOT-TAKING ACYCLOVIR 200 MG CAPSULE 1 CAPSULE ORALLY THREE TIMES A DAY NOT-TAKING ENSURE - LIQUID DIRECTED ORALLY DAILY NOT-TAKING ACYCLOVIR 800 MG TABLET 1 TABLET ORALLY TWICE A DAY NOT-TAKING AMOXICILLIN-POT CLAVULANATE 875-125 MG TABLET 1 TABLET ORALLY EVERY 12 HRS MEDICATION LIST REVIEWED AND RECONCILED WITH THE PATIENT PAST MEDICAL HISTORY THROAT CANCER (FINISHED RADIATION 05/2014) STROKE 2013 SHINGLES 2015 GERD HYPERTENSION HYPERLIPIDEMIA CAD DYSPHAGIA ALLERGIES [place]. 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 1 BROTHER HAD HEART SURGERY. MOTHER AND SISTER WITH CONGESTIVE HEART FAILURE. FATHER WITH BRAIN TUMOR. SOCIAL HISTORY GENERAL: TOBACCO USE ARE YOU A:NONSMOKER VAPORNO E-CIGARETTENO HIV / HEP-C SCREENING HIV TEST OFFERED TO PATIENT:NO NOT HEP-C TEST OFFERED TO PATIENT:YES DATE OFFERED:02/26/2019 TEST ACCEPTED:NO REASON:PATIENT DECLINED CONSENT SIGNED EDUCATION LEVEL OF EDUCATION:NOT FINISHED COLLEGE DIET: REGULAR. LANGUAGE GEORGIAN. DOMESTIC VIOLENCE DO YOU FEEL SAFE IN YOUR ENVIRONMENT?YES NEW PATIENT PAIN DIARY FROM 0-10, WHAT LEVEL IS YOUR PAIN TODAY?5 PRECIPITATING FACTORS PAIN STARTED IN 2014 FROM SEVERE CASE OF SHINGLES DO YOU TAKE ANY BLOOD THINNERS?YES ASA DO YOU HAVE ANY RASHES OR OPEN SORES?NO ANY CHANGE IN BOWEL OR BLADDER CONTROL?YES URGENCY AND FREQUENCY ARE YOU ALLERGIC TO SHELLFISH OR IV DYE?NO ARE YOU DIABETIC?NO DO YOU HAVE A PACEMAKER OR DEFIBRILLATOR?NO ANY NEW PROBLEMS WITH MEDICINES OR NEW ALLERGIESNO ANY NEW PATTERNS OF PAIN OR NUMBNESS?NO ANY CHANGE IN YOUR MEDICAL CONDITION?NO HAVE YOU FALLEN IN THE LAST 6 MONTHS?NO DO YOU USE ANY TYPE OF TOBACCO (SMOKE, SMOKELESS, CHEW, ETC.)NO ARE YOU ABUSED, NEGLECTED, OR IN AN UNSAFE ENVIRONMENT?NO DO YOU HAVE THOUGHTS OF HURTING YOURSELF OR SOMEONE ELSE?NO DO YOU NEED ANY PRESCRIPTIONS?YES OXYCODONE DO YOU HAVE ANY OTHER QUESTIONS OR CONCERNS?NO BMI CARE GOAL FOLLOW-UP BELOW NORMAL BMI FOLLOW-UPFEEDING REGIME, LIFESTYLE EDUCATION REGARDING DIET RECREATIONAL DRUG USE DRUG USE?YES MARIJUANA EXERCISE: WALKS DAILY. LEARNING BARRIERS / SPECIAL NEEDS CHANGE FROM LAST VISIT?NO BARRIERS TO LEARNING?NO HEARING IMPAIRED?YES :HEARING AIDES VISION IMPAIRED?YES :CORRECTIVE LENSES COGNITIVELY IMPAIRED?NO READINESS TO LEARN?YES LEARNING PREFERENCES?NO LEARNING CAPABILITIES PRESENT?YES EMOTIONAL BARRIERS?NO SPECIAL DEVICES?NO CONDOMINIUM PROPERTY MANAGER NEEDED?NO LUNG CANCER SCREENING SMOKING STATUS:NON SMOKER PAIN CLINIC PFS, CLERGY, PUBLIC HEALTH REFERRALS HAS THE PATIENT BEEN EDUCATED REGARDING HIS/HER PLAN OF CARE?YES ORIENTED TO PAIN MANAGEMENT HAS THE PATIENT BEEN EDUCATED REGARDING PAIN, THE RISK FOR PAIN, THE IMPORTANCE OF EFFECTIVE PAIN MANAGEMENT, AND THE PAIN ASSESSMENT PROCESS?YES LATEX QUESTIONNAIRE LATEX ALLERGY : HAVE YOU EVER DEVELOPED ANY TYPE OF REACTION AFTER HANDLING LATEX PRODUCTS SUCH RUBBER GLOVES, CONDOMS, DIAPHRAGMS, BALLOONS, SOCKS, OR UNDERWEAR?NO LATEX ALLERGY : HAVE YOU EVER DEVELOPED ANY TYPE OF REACTION DURING OR AFTER DENTAL APPOINTMENT, VAGINAL/RECTAL EXAMINATION, SURGICAL PROCEDURE, OR ANY OTHER EXPOSURE?NO LATEX RISK : HAVE YOU EVER HAD ANY DIFFICULTY BREATHING OR HIVES AFTER EATING OR HANDLING ANY FRUITS, OR VEGETABLES; SUCH KIWI, BANANAS, STONE FRUITS, OR CHESTNUTSNO LATEX RISK : DO YOU HAVE A PREVIOUS PERSONAL HISTORY OF MORE THAN NINE SURGERIES, SPINA BIFIDA, OR REPEATED CATHERIZATIONS? NO LATEX RISK : ARE YOU FREQUENTLY EXPOSED TO LATEX PRODUCTS IN YOUR OCCUPATION?NO DATE ASKED : 03/30/2019 CAFFEINE CAFFEINE USE?YES ADVANCE DIRECTIVE ADVANCE DIRECTIVE DISCUSSED WITH PATIENT:YES PT STATES THAT HE DOES NOT HAVE HCP AT THIS TIME, DECLINES INFORMATION OR ASSISTANCE WITH PAPERWORK. DS ANABAPTISM NO YARSANI BELIEFS THAT WOULD IMPACT HEALTH CARE. MARITAL STATUS: SINGLE. ALCOHOL SCREENING DID YOU HAVE A DRINK CONTAINING ALCOHOL IN THE PAST YEAR?YES HOW OFTEN DID YOU HAVE SIX OR MORE DRINKS ON ONE OCCASION IN THE PAST YEAR?NEVER (0 POINTS) HOW MANY DRINKS DID YOU HAVE ON A TYPICAL DAY WHEN YOU WERE DRINKING IN THE PAST YEAR?1 OR 2 (0 POINTS) HOW OFTEN DID YOU HAVE A DRINK CONTAINING ALCOHOL IN THE PAST YEAR?TWO TO FOUR TIMES A MONTH (2 POINTS) POINTS2 INTERPRETATIONNEGATIVE OCCUPATION: [employer]. HOSPITALIZATION/MAJOR DIAGNOSTIC PROCEDURE [facility] STOMACH BUG WITH CHEST PAINS 02/2016 [facility] BP ISSUES IN FOR 4 DAYS 08/2017 [facility], ESOPHAGEAL STRICTURE, GASTRIC ULCER, DUODENITIS 11/2017 [facility] FOR 3 DAYS FOR CARDIAC ISSUES 10/2018 [facility]-FROM [facility] FOR ELEVATED TROP. NSTEMI RULED OUT 02/20/19-02/23/19 REVIEW OF SYSTEMS REVIEWED BY: PROVIDER: JABIER JENSEN MD . CONSTITUTIONAL: ANY CHANGE IN YOUR MEDICAL CONDITION? NO . CHILLS NO . FEVER NO . INFECTION: DO YOU HAVE NEW INFECTIONS? YES, PT HAS INFECTION IN TEETHM UNABLE TO FIND ANY DENTIST TO PULL TEETH AT THIS TIME.DS . DO YOU HAVE HISTORY OF MRSA? NO . MUSCULOSKELETAL: ANY NEW PATTERNS OF PAIN OR NUMBNESS? NO . SYTEMIC LUPUS NO . GASTROENTEROLOGY: ANY NEW CHANGE IN BOWEL CONTROL? NO . BARRETTS ESOPHAGUS NO . CIRRHOSIS NO . HEPATITIS NO . LIVER FAILURE NO . ACID REFLUX NO . UNEXPLAINED WEIGHT LOSS NO . GENITOURINARY: ANY NEW CHANGE IN BLADDER CONTROL? YES, URINARY URGENCY AND FREQUENCY . IS THERE A CHANCE YOU COULD BE ? NO . HEMATOLOGY/LYMPH: DO YOU TAKE ANY BLOOD THINNERS? (FOR EXAMPLE- COUMADIN, PLAVIX, AGGRENOX, PLATEL, PRADAXA, OR XARELTO) YES, ASA 81MG . WHEN WAS YOUR LAST DOSE? DATE: TIME: . LOW PLATELET COUNT NO . SICKLE CELL DISEASE NO . VON WILLIEBRANDS NO . FACTOR V LEIDEN NO . THALLASEMIA NO . ANEMIA NO . EASY BRUISING NO . NEUROLOGY: HAVE YOU FALLEN IN THE PAST 12 MONTHS? NO . ANY NEW EXTREMITY NUMBNESS OR WEAKNESS? NO . HEAD INJURY NO . DEMENTIA NO . CEREBRAL PALSY NO . MULTIPLE SCLEROSIS NO . DIZZINESS NO . HEADACHE NO . STROKES NO . VERTIGO NO . CARDIOLOGY: DO YOU HAVE A PACEMAKER OR DEFIBRILLATOR? NO . ANGINA NO . HEART ATTACK NO . HEART SURGERY NO . CONGESTIVE HEART FAILURE/FLUID OVERLOAD NO . CHEST PAIN NO . HIGH BLOOD PRESSURE NO . IRREGULAR HEART BEAT NO . RESPIRATORY: HAVE YOU BEEN SICK IN THE PAST WEEK? YES, TWO WEEKS AGO, NO CURRENT SYMPTOMS. . FEVER NO . FLU LIKE SYMPTOMS? NO . CPAP NO . BYPAP NO . ASTHMA NO . EMPHYSEMA NO . CHRONIC LUNG DISEASES NO . SHORTNESS OF BREATH ON EXERTION NO . COUGH NO . SNORING NO . INTEGUMENTARY: DO YOU HAVE ANY RASHES OR OPEN SORES? NO . ALLERGIC/IMMUNO: ARE YOU ALLERGIC TO IV DYE? NO . ANY NEW ALLERGIES? NO . PSYCHIATRIC: DO YOU HAVE THOUGHTS OF HURTING YOURSELF OR SOMEONE ELSE? NO . ARE YOU ABUSED, NEGLECTED, OR IN AN UNSAFE ENVIRONMENT? NO . ENDOCRINOLOGY: ARE YOU DIABETIC? NO . THYROID DISORDER NO . OTHER: DO YOU NEED ANY PRESCRIPTIONS? YES, OXYCODONE . IF YES, PLEASE LIST: ____ . ANY NEW PROBLEMS WITH YOUR MEDICATIONS? NO . WHEN DID YOU LAST EAT? ____ . WHEN DID YOU LAST DRINK? ____ . WHAT DID YOU LAST DRINK? ____ . NAME OF PERSON DRIVING YOU HOME? ____ . DO YOU HAVE ANY OTHER QUESTIONS OR CONCERNS NO . VITAL SIGNS WT 140.6 LBS, HT 5'5", BMI 23.39 INDEX, BP 130/60 MM HG, HR 61 /MIN, RR 18 /MIN, TEMP 97.5 F, OXYGEN SAT % 98%, SAFE IN ENV? (Y/N) Y, NA INITIALS SC 12:30, REVIEWED BY: JANE. EXAMINATION GENERAL EXAMINATION: PATIENT IS ALERT O X 3 AND COOPERATIVE. LUNGS CLEAR, TO AUSCULTATION. HEART: NO MURMURS OR GALLOPS; FACIAL CRANIAL NERVES ARE GROSSLY NORMAL. GOOD SYMMETRY OF FACIAL MUSCLE MOVEMENT. NORMAL VISUAL ABRAMS. TENDERNESS OVER THE PARASPINAL MUSCLE GROUP OF THE NECK. PRESENCE OF BANDS OF TISSUE AND TRIGGER POINTS WITH RESTRICTION OF MOVEMENT OF THE NECK. PAIN INCREASES OVER THE CERVICAL FACET JOINTS WITH EXTENSION AND LATERAL ROTATION OF THE NECK. MILD TENDERNESS AND PRESENCE OF BANDS OF TISSUE AND TRIGGER POINTS WITH RESTRICTION OF MOVEMENT OF THE LEFT THORACOLUMBAR AREA. MRI OF THE CERVICAL SPINE DONE ON 06/29/2018 SHOWS FACET HYPERTROPHY AT C7-T1 LEVEL. 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 PABLO'S PAIN MANAGEMENT CASE. THE PATIENT SAYS HE USES GABAPENTIN SOMETIMES TO HELP WITH HIS TEETH PAIN AND HELPS HIM BE MORE FUNCTIONAL, HOWEVER HE DOES NOT USE A LOT DUE TO IT AFFECTING HIS EQUILIBRIUM. THE PATIENT SAYS HE IS USING ONE PERCOCET DAILY NEEDED THAT IS HELPING WITH HIS PAIN. I DISCUSSED WITH THE PATIENT ABOUT THE POSSIBILITY OF PERFORMING INJECTION THERAPY, SUCH A TRIGGER POINT INJECTION, HOWEVER THE PATIENT EXPRESSED CONCERNS OF PAYMENT. I DISCUSSED THE OPTION OF PRESCRIBING LIDOCAINE FOR THE PATIENT'S PAIN, BUT THE PATIENT STATES THAT HE HAS LIDOCAINE CREAM AT HOME AND HE WOULD PREFER NOT TO RECEIVE THE PATCH. I WILL REFER THE PATIENT TO [facility]'S PALLIATIVE CARE STAR PROGRAM TO CONSIDER MEDICATION MANAGEMENT AND MEDICAL MARIJUANA. THE PATIENT WAS ADVISED TO CALL NEEDED IF HE WOULD LIKE TO BE SEEN HERE FOR INJECTION THERAPY. INSTRUCTIONS WERE GIVEN, QUESTIONS WERE ANSWERED, PATIENT REPORTS UNDERSTANDING AND AGREES WITH THE PLAN. I, OSCAR LARA, DOCUMENTED THE ABOVE INFORMATION ACTING A SCRIBE FOR DR. JENSEN. I HAVE REVIEWED THE ABOVE DOCUMENT, WRITTEN BY OSCAR CUEVA AND I VERIFY THAT IT IS ACCURATE. DEAR PAPO NUNEZ PA-C: THANK YOU FOR YOUR KIND REFERRAL OF NELIDA PABLO. IF YOU WANT TO DISCUSS HIS CASE WITH ME PLEASE CALL ME AT THE PAIN CENTER AT [phone]. SINCERELY, JABIER JENSEN MD PAIN MEDICINE . PROCEDURE CODES FA211 ESTABILISHED PATIENT [facility] FACILITY CHARGE G8427 CURRENT MEDS W/DOSAGES DOCUMENTED G8730 PAIN ASSESS POS TOOL F/U PLAN DOC DISPOSITION & COMMUNICATION FOLLOW UP REASON: REFERRING TO PALLIATIVE CARE/CALL NEEDED ELECTRONICALLY SIGNED BY JABIER JENSEN MD, MD ON 04/09/2019 AT 12:42 PM EST DISCLAIMER : THIS IS A VISIT SUMMARY EXTRACTED FROM THE [employer] CHART. IT IS NOT A COPY OF THE [employer] PROGRESS NOTE. TOR
== END ==
LOC: M PAIN 13:00
PROVIDERS: ATTEND Anesthesiology
DX: M54.2 Cervicalgia (principal); M79.18 Myalgia, other site; M47.812 Spondylosis without myelopathy or radiculopathy, cervical region; B02.29 Other postherpetic nervous system involvement; G89.29 Other chronic pain; K08.9 Disorder of teeth and supporting structures, unspecified; K21.9 Gastro-esophageal reflux disease without esophagitis; I10 Essential (primary) hypertension; E78.5 Hyperlipidemia, unspecified; Z79.82 Long term (current) use of aspirin; Z79.899 Other long term (current) drug therapy

== ENCOUNTER 2019-04-29 17:49 | Inpatient (IN) | payer MEDICAID, MEDICARE ==
[~2019-04-29] VITALS: Ht 167.6 cm; Wt 59.4 kg
[~2019-04-29 17:49] MED LIST changes: +OMEP-172 PO; -OMEP20CA4 PO; -SIMV40TA2 PO; +SIMV40TA20 PO
[2019-04-29] MEDS ORDERED: NS 1,000 ML IV ONE ×2 (18:15→19:30)
[2019-04-29] MEDS ORDERED: ACETAMINOPHEN TAB 650MG DOSE (2X325MG) PO ONE (18:30)
[2019-04-29 18:45] LABS: BASO % 0.3 % (0.0-1.0); EOS % 0.1 % (0.0-3.0); HEMATOCRIT 43.7 % (42.0-52.0); HEMOGLOBIN 15.5 g/dl (13.5-17.5); LYMPH # 0.5 10^3/uL (1.5-5.0); LYMPH % 3.6 % (24.0-44.0); MEAN CORPUSCULAR HEMOGLOBIN 31.8 pg (27.0-33.0); MEAN CORPUSCULAR HGB CONC 35.5 g/dl (32.0-36.5); MEAN CORPUSCULAR VOLUME 89.5 fl (80.0-96.0); MONO # 0.5 10^3/uL (0.0-0.8); MONO % 3.5 % (0.0-5.0); NEUTROPHILS # 13.6 10^3/uL (1.5-8.5); PLATELET COUNT, AUTOMATED 168 10^3/uL (150-450); RED BLOOD COUNT 4.88 10^6/uL (4.30-6.10); WHITE BLOOD COUNT 14.8 10^3/uL (4.0-10.0)
[2019-04-29] MEDS ORDERED: ONDANSETRON 4MG/2ML VIAL (J2405) IV ONE (19:00)
[2019-04-29 19:18] LABS: ALBUMIN 4.4 GM/DL (3.2-5.2); ALT/SGPT 20 U/L (12-78); BILIRUBIN,DIRECT 0.1 MG/DL (0.0-0.2); BILIRUBIN,TOTAL 1.6 MG/DL (0.2-1.0); BLOOD UREA NITROGEN 10 MG/DL (7-18); CALCIUM LEVEL 9.3 MG/DL (8.8-10.2); CARBON DIOXIDE LEVEL 18 MEQ/L (21-32); CHLORIDE LEVEL 92 MEQ/L (98-107); CK-MB VALUE MASS 4.4 NG/ML (<3.6); CPK CREATINE PHOSPHOKINASE 149 U/L (39-308); CREATININE FOR GFR 1.15 MG/DL (0.70-1.30); GLOMERULAR FILTRATION RATE > 60.0 (>42); GLUCOSE, FASTING 149 MG/DL (70-100); INFLUENZA A AMPLIFICATION NEGATIVE (NEGATIVE); INFLUENZA B AMPLIFICATION NEGATIVE (NEGATIVE); MB/CK RELATIVE INDEX 2.95 (< OR =4); POTASSIUM SERUM 4.9 MEQ/L (3.5-5.1); SODIUM LEVEL 127 MEQ/L (136-145); TOTAL PROTEIN 8.7 GM/DL (6.4-8.2); TROPONIN I < 0.02 NG/ML (< 0.10)
[2019-04-29] MEDS ORDERED: ACETAMINOPHEN 325 MG/10.15 ML UDC PO ONE (19:30)
[2019-04-29] MEDS ORDERED: METOCLOPRAMIDE INJ 10MG/2ML VIAL (J2765) IV ONE (19:30)
[2019-04-29] MEDS ORDERED: ISOVUE-370 76% 100ML VIAL (Q9967) As Ordered ONE (19:40)
[2019-04-29] MEDS ORDERED: OMEP40CA97 PO (20:07)
[2019-04-29] MEDS ORDERED: GABA600T4 PO (20:07)
[2019-04-29] MEDS ORDERED: SERT-141 PO (20:07)
[2019-04-29 20:50] LABS: VENOUS BASE EXCESS -6.9 (-2.0-2.0); VENOUS HCO3 18.6 MEQ/L (23.0-27.0); VENOUS O2 SATURATION 86.4 % (60.0-80.0); VENOUS PARTIAL PRESSURE CO2 37.9 mmHg (38.0-50.0); VENOUS PARTIAL PRESSURE O2 55.6 mmHg (30.0-50.0); VENOUS PH 7.309 UNITS (7.330-7.430); VENOUS STANDARD HCO3 18.7 MEQ/L; VENOUS TOTAL CO2 19.8 MEQ/L (24.0-28.0)
--- NOTE | 2019-04-29 22:12 | REPVR ---
PROCEDURE INFORMATION: Exam: CT Abdomen And Pelvis With Contrast Exam date and time: 04/29/2019 8:43 PM Age: 73 years old Clinical history: Nausea; Additional info: Nausea, rigors, cancer, short of breath TECHNIQUE: Imaging protocol: Computed tomography of the abdomen and pelvis with intravenous contrast. Radiation optimization: All CT scans at this facility use at least one of these dose optimization techniques: automated exposure control; mA and/or kV adjustment per patient size (includes targeted exams where dose is matched to clinical indication); or iterative reconstruction. Contrast material: ISOVUE 370; Contrast volume: 100 ml; Contrast route: IV; COMPARISON: No relevant prior studies available. FINDINGS: Liver: The liver attenuation is 49 Hounsfield units and the spleen is 129 Hounsfield units. Liver cyst measuring 16 x 13 x 14 mm with Hounsfield measurement of 3. Gallbladder and bile ducts: Pericholecystic fluid or wall edema and slight pericholecystic induration. No gallstones by CT. Pancreas: Normal. No ductal dilation. Spleen: Normal. No splenomegaly. Adrenals: Normal. No mass. Kidneys and ureters: Normal. No hydronephrosis. Stomach and bowel: Colonic diverticulosis without definite diverticulitis. Minimal diffuse colonic wall thickening with some areas of pericolonic induration consistent with minimal nonspecific pancolitis. Appendix: A normal appendix is seen with an appendicolith. Intraperitoneal space: Unremarkable. No free air. No significant fluid collection. Vasculature: The soft plaque in the proximal SMA with slight proximal stenosis estimated at less than 30%. Incidental note of a retroaortic left renal vein. There is mild calcification of the abdominal aorta with extension into the iliac arteries. Lymph nodes: Unremarkable. No enlarged lymph nodes. Bladder: Mild distention of the urinary bladder. Reproductive: Unremarkable as visualized. Bones/joints: Unremarkable. No acute fracture. Soft tissues: Unremarkable. IMPRESSION: 1. Fatty infiltration of the liver. 2. Pericholecystic fluid or wall edema with slight surrounding induration which may reflect cholecystitis. No gallstones by CT. 3. Colonic diverticulosis without definite localized diverticulitis. 4. Minimal nonspecific pancolitis. Electronically signed by: Socrates Fitzpatrick On 04/29/2019 22:11:41 PM
--- NOTE | 2019-04-29 22:15 | REPVR ---
PROCEDURE INFORMATION: Exam: CT Angiography Chest With Contrast Exam date and time: 04/29/2019 8:43 PM Age: 73 years old Clinical history: Shortness of breath; Additional info: Nausea, rigors, cancer, short of breath TECHNIQUE: Imaging protocol: Computed tomographic angiography of the chest with intravenous contrast. 3D rendering: MIP reconstructed images were created and reviewed. Radiation optimization: All CT scans at this facility use at least one of these dose optimization techniques: automated exposure control; mA and/or kV adjustment per patient size (includes targeted exams where dose is matched to clinical indication); or iterative reconstruction. Contrast material: ISOVUE 370; Contrast volume: 100 ml; Contrast route: IV; COMPARISON: CR PORTABLE CHEST X-RAY 04/29/2019 7:25 PM FINDINGS: Pulmonary arteries: The main pulmonary artery measures 27 mm. No pulmonary embolism is identified. Aorta: The ascending thoracic aorta measures 30 mm. Lungs: Minimal bilateral lower lobe dependent atelectasis. Pleural space: Unremarkable. No pneumothorax. No pleural effusion. Heart: Unremarkable. No cardiomegaly. No pericardial effusion. Liver: Hepatic cyst measuring up to 17 mm with a Hounsfield measurement of 1. Lymph nodes: Unremarkable. No enlarged lymph nodes. Bones/joints: Unremarkable. No acute fracture. Soft tissues: Unremarkable. IMPRESSION: Negative CTA chest. No pulmonary embolism is identified. Electronically signed by: Socrates Fitzpatrick On 04/29/2019 22:15:26 PM
[2019-04-29] MEDS ORDERED: PIPERACILLIN/TAZOBACTAM SOD 3.375 GM in D5W MINI-BAG PLUS 50 ML IV ONE (23:00)
--- NOTE | 2019-04-29 23:40 | HPEPDOC ---
[facility] Medical History & Physical Date of Admission Apr 29, 2019 Date of Service: Apr 29, 2019 Primary Care Physician: PAPO NUNEZ PA-C Attending Physician: LEILANI DEGROOT MD History and Physical TIME OF SERVICE: 11:47 PM CHIEF COMPLAINT: "Not feeling well" HISTORY OF PRESENT ILLNESS: This is a 73-year-old male who reports that he came to the hospital because he was "not feeling well" since . He is complaining that he does not have an appetite, eating and drinking very little, feeling nauseous, chills, having a dry mouth, and having tightness in his chest. He denies having abdominal pain or vomiting. REVIEW OF SYSTEMS: 12 point review of systems negative except as listed in HPI PAST MEDICAL/ SURGICAL HISTORY: Chronic CAD /dyslipidemia History of CVA Chronic hypertension History of throat cancer pleated radiation therapy in 2014 History of Shingles Fatty liver GERD Diverticulosis Status post resection of tonsillar cancer. Status post bilateral cataract surgery SOCIAL HISTORY: He does not smoke. He drinks alcohol occasionally FAMILY HISTORY: Brain cancer CHF CAD status post CABG ALLERGIES: Please see below. HOME MEDICATIONS: Please see below. PHYSICAL EXAMINATION: VITAL SIGNS: Please see below. GEN: well nourished / well developed/ NAD INTEGUMENT: not flushed/ not jaundice HEENT: normocephalic / atraumatic / mucus membranes dry/ sclera anicteric CVS: Tachycardic/NMRG/ radial and dorsalis pedis pulses intact LUNGS: able to speak full sentences without stopping to take a breath / no coughing / lungs are clear to auscultation bilaterally on room air ABDOMEN: flat / there are no masses or lesions / bowel sounds are present / the abdomen is tympanic on percussion, soft & not tender with palpation / negative Shah sign MSK/EXTREMITIES: range of motion intact in all 4 extremities NEURO: CN 2-12 are grossly intact / speech is not dysarthric PSYCH: alert and oriented to person place and time/ able to understand and follow all commands LABORATORY DATA: See below. IMAGING: "IMPRESSION: 1. Fatty infiltration of the liver. 2. Pericholecystic fluid or wall edema with slight surrounding induration which may reflect cholecystitis. No gallstones by CT. 3. Colonic diverticulosis without definite localized diverticulitis. 4. Minimal nonspecific pancolitis. " MICROBIOLOGY: Please see below. ASSESSMENT: Mr. Mathews is a 73 yr old w PMH of chronic CAD, Chronic CAD, hx of throat CA, Fatty Liver, and dyslipidemia who will be admitted for management of sepsis possibly 2/2 acalculous cholecystitis. PLAN: 1. Sepsis possibly secondary to acalculous cholecystitis Less likely 2/2 pancolitis as he denies having abdominal pain. SIRS criteria include HR >90 /WBC >12 He has non diabetic hyperglycemia Lactic acid is 3 NEW2S Score = 1 point = low risk Sepsis protocol was initiated in the ER, he received Zosyn, IV fluids, and l actic acid was checked CT scan had findings that may represent acalculous cholecystitis Plan: admit to PCU / telemetry / follow-up repeat lactic acid /general surgery consult to determine if he should have a HIDA scan or other testing prior to possible surgery / continue Zosyn/ switch to lactate ringers /f/u blood cx/ Acetaminophen PRN for fever & Zofran for nausea / target MAP 65 to 70 mmHG / f/u Is and Os with target [facility] [place] 0.5 ml/kg/H / target serum glucose 140-180 while acutely ill 2. Anion gap metabolic acidosis 2/2 Lactic Acidosis Plan: Follow-up repeat BMP and lactic acid after IV fluids 3. Uncontrolled hypertension He denies being in pain Plan: Resume losartan, metoprolol, and tamsulosin/will give 5mg of IV metoprolol right now 4. Mild, asymptomatic, hypovolemic hyponatremia Likely due to poor oral intake. Plan: Follow-up repeat BMP after IV fluids 5. Chronic CAD /dyslipidemia / History of CVA Plan: Resume metoprolol succinate, but hold aspirin and simvastatin 6. GERD Plan: Resume omeprazole DVT PROPHYLAXIS: SCDs in case he needs surgery DISPOSITION: Likely home after more than 2 midnight's stay Vital Signs Vital Signs Date Time Temp Pulse Resp B/P (MAP) Pulse Ox O2 Delivery O2 Flow Rate FiO2 04/29/19 22:04 107 97 04/29/19 20:44 202/96 (131) 04/29/19 18:54 Room Air 04/29/19 18:05 97.9 16 Laboratory Data Labs 24H Laboratory Tests 2 04/29/19 18:38: Immature Granulocyte % (Auto) 0.5, Neutrophils (%) (Auto) 92.0H, Lymphocytes (%) (Auto) 3.6L, Monocytes (%) (Auto) 3.5, Eosinophils (%) (Auto) 0.1, Basophils (%) (Auto) 0.3, Neutrophils # (Auto) 13.6H, Lymphocytes # (Auto) 0.5L, Monocytes # (Auto) 0.5, Eosinophils # (Auto) 0.0, Basophils # (Auto) 0.0, Nucleated Red Blood Cells % (auto) 0.0, Anion Gap 17H, Glomerular Filtration Rate > 60.0, Lactic Acid Level 3.0*H, Calcium Level 9.3, Total Bilirubin 1.6H, Direct Bilirubin 0.1, Aspartate Amino Transf (AST/SGOT) 44H, Alanine Aminotransferase (ALT/SGPT) 20, Alkaline Phosphatase 91, Total Creatine Kinase 149, Creatine Kinase MB 4.4H, Creatine Kinase MB Relative Index 2.95, Troponin I < 0.02, Total Protein 8.7H, Albumin 4.4, Albumin/Globulin Ratio 1.02, Thyroid Stimulating Hormone (TSH) 3.940H, Influenza Type A (RT-PCR) NEGATIVE, Influenza Type B (RT- PCR) NEGATIVE 04/29/19 19:48: Urine Color STRAW, Urine Appearance CLEAR, Urine pH 7.0, Urine Specific [place] 1.009, Urine Protein 2+H, Urine Glucose (UA) 1+H, Urine Ketones 2+H, Urine Blood 1+H, Urine Nitrite NEGATIVE, Urine Bilirubin NEGATIVE, Urine Urobilinogen 0.2, Urine Leukocyte Esterase NEGATIVE, Urine WBC (Auto) 0, Urine RBC (Auto) 2, Urine Hyaline Casts (Auto) 0, Urine Bacteria (Auto) NEGATIVE, Urine Squamous Epithelial Cells 0, Urine Mucus (Auto) SMALL, Urine Sperm (Auto) 04/29/19 20:44: Blood Gas Bicarbonate Standard 18.7, Venous Blood pH 7.309L, Venous Blood Partial Pressure CO2 37.9L, Venous Blood Partial Pressure O2 55.6H, Venous Blood Total Carbon Dioxide 19.8L, Venous Blood HCO3 18.6L, Venous Blood Oxygen Saturation 86.4H, Venous Blood Base Excess -6.9L CBC/BMP Laboratory Tests 04/29/19 18:38 Microbiology Microbiology 04/29/19 Blood Culture, Received Pending 04/29/19 Blood Culture, Received Pending Home Medications Scheduled Aspirin (Aspir 81) 81 Mg Tablet.dr, 81 MG PO DAILY Cholecalciferol (Vitamin D3) (Vitamin D3) 400 Unit Capsule, 800 UNIT PO DAILY Gabapentin (Gabapentin) 300 Mg Capsule, 600 MG PO QHS Levothyroxine Sodium (Levothyroxine Sodium) 50 Mcg Tab, 50 MCG PO DAILY Losartan Potassium (Losartan Potassium) 100 Mg Tab, 100 MG PO DAILY Metoprolol Succinate (Metoprolol Succinate) 50 Mg Tab.er.24h, 50 MG PO DAILY Omeprazole (Omeprazole) 40 Mg Capsule.dr, 40 MG PO DAILY Sertraline Hcl (Sertraline HCl) 50 Mg Tablet, 50 MG PO DAILY Simvastatin (Simvastatin) 40 Mg Tab, 40 MG PO QHS Tamsulosin HCl (Flomax) 0.4 Mg Capsule, 0.4 MG PO DAILY Allergies Coded Allergies: ENVIROMENTAL (Verified Allergy, Unknown, 04/29/19) A-FIB/CHADSVASC A-FIB History Current/History of A-Fib/PAF?: No Current PO Anticoag Therapy: No LEILANI DEGROOT MD Apr 29, 2019 23:40
[2019-04-29] MEDS ORDERED: GABA-843 PO (23:59)
[2019-04-30] MEDS ORDERED: ONDANSETRON 4MG/2ML VIAL (J2405) IV PRN (00:30)
[2019-04-30] MEDS ORDERED: NS 1,000 ML IV SCH (00:30)
[2019-04-30] MEDS ORDERED: ACETAMINOPHEN TAB 650MG DOSE (2X325MG) PO PRN (00:30)
--- NOTE | 2019-04-30 01:06 | ECGEPIP ---
[facility] - ED Test Date: 2019-04-29 Pat Name: NELIDA PABLO Department: Room: - Gender: Male [employer]: : 1945 Requested By: MICKY Macedo Order Number: [id number] Reading MD: Micky Parmar Measurements Intervals Accident Rate: 73 P: 65 IA: 144 QRS: 44 QRSD: 98 T: 60 QT: 419 QTc: 462 Interpretive Statements SINUS RHYTHM WITH SINUS ARRHYTHMIA Nonspecific ST-T wave abnormalities Prolonged QTc interval new from tracing done 02-21-19 Electronically Signed on 04-30-2019 1:06:01 EST by Micky Parmar
[2019-04-30] MEDS ORDERED: NS 1,000 ML IV ONE (02:30)
[2019-04-30] MEDS ORDERED: METOPROLOL 5 MG/5 ML VIAL IV STA (02:43)
[2019-04-30] MEDS: LR 1,000 ML IV SCH ×4 (07:38→20:25)
[2019-04-30] MEDS: PIPERACILLIN/TAZOBACTAM SOD 3.375 GM in D5W MINI-BAG PLUS 50 ML IV SCH ×4 (07:39→23:45)
--- NOTE | 2019-04-30 08:35 | REP ---
Portable chest x-ray: Single view. History: Dyspnea and cough. Comparison study: February 21, 2019. Findings: Monitoring electrodes are seen overlying the chest. The lungs are symmetrically aerated and clear. Pleural angles are sharp. Heart is not enlarged. The aorta somewhat tortuous. Pulmonary vasculature is not increased. Impression: No acute disease. Electronically Signed by Ozzie Perez MD 04/30/2019 08:26 A
[2019-04-30 09:15] LABS: HEMOGLOBIN 17.4 g/dl (13.5-17.5); MEAN CORPUSCULAR HEMOGLOBIN 32.6 pg (27.0-33.0); MEAN CORPUSCULAR HGB CONC 36.3 g/dl (32.0-36.5); MEAN CORPUSCULAR VOLUME 89.9 fl (80.0-96.0); PLATELET COUNT, AUTOMATED 193 10^3/uL (150-450); RED BLOOD COUNT 5.34 10^6/uL (4.30-6.10); WHITE BLOOD COUNT 21.3 10^3/uL (4.0-10.0)
[2019-04-30 09:51] LABS: ALBUMIN 4.2 GM/DL (3.2-5.2); ALT/SGPT 20 U/L (12-78); BILIRUBIN,TOTAL 1.2 MG/DL (0.2-1.0); BLOOD UREA NITROGEN 11 MG/DL (7-18); CARBON DIOXIDE LEVEL 17 MEQ/L (21-32); CHLORIDE LEVEL 98 MEQ/L (98-107); GLOMERULAR FILTRATION RATE > 60.0 (>42); GLUCOSE, FASTING 126 MG/DL (70-100); POTASSIUM SERUM 3.8 MEQ/L (3.5-5.1); SODIUM LEVEL 130 MEQ/L (136-145); TOTAL PROTEIN 7.8 GM/DL (6.4-8.2)
[2019-04-30] MEDS: LEVOTHYROXINE 50MCG TABLET (0.05MG) PO SCH (09:59)
[2019-04-30] MEDS: TAMSULOSIN 0.4 MG CAP PO SCH (09:59)
[2019-04-30] MEDS: OMEPRAZOLE 20 MG CAP PO SCH (09:59)
[2019-04-30] MEDS: SERTRALINE HCL 50 MG TAB PO SCH (10:00)
[2019-04-30] MEDS: METOPROLOL SUCC (TopROL XL) 50MG **XL** TAB PO SCH (10:00)
[2019-04-30] MEDS: LOSARTAN 50 MG TAB PO SCH (10:02)
--- NOTE | 2019-04-30 10:51 | IPNPDOC ---
Subjective Date Seen The patient was seen on 04/30/19. Subjective Chief Complaint/HPI Patient is still complaining of abdominal pain. Complaining of hunger and nausea as well General: Denies: ROS Unobtainable, Chills, Night Sweats, Fatigue, Malaise, Normal Appetite, Other Symptoms Constitutional: Denies: Chills, Fever, Malaise, Night Sweats, Weakness, Fatigue, Weight Loss, Lethargy, Other Skin: Denies: Rash, Lesions, Jaundice, Bruising, Itching, Dry, Breakdown, Nail Changes, Other Pulmonary: Denies: Dyspnea, Cough, Pleuritic Chest Pain, Other Symptoms Cardiovascular: Denies: Chest Pain, Palpitations, Orthopnea, Paroxysmal Noc. Dyspnea, Edema, Lt Headedness, Other Symptoms Gastrointestinal: Reports: Abdominal Pain Genitourinary: Denies: Dysuria, Frequency, Incontinence, Hematuria, Retention, Other Symptoms Musculoskeletal: Denies: Neck Pain, Back Pain, Shoulder Pain, Arm Pain, Hand Pain, Leg Pain, Foot Pain, Joint Pain, Muscle Pain, Spasms, Other Symptoms Neurological: Denies: Weakness, Numbness, Incoordination, Change in speech, Confusion, Seizures, Other Symptoms Objective Physical Examination General Exam: Positive: Alert, Cooperative Eye Exam: Positive: PERRLA, Conjunctiva & lids normal ENT Exam: Positive: Atraumatic, Mucous membr. moist/pink Neck Exam: Positive: Supple Chest Exam: Positive: Clear to auscultation, Normal air movement Heart Exam: Positive: Rate Normal, Normal S1, Normal S2 Abdomen Exam: Positive: Other (, distended abdomen generalized tenderness at the upper abdomen on palpation. Bowel sounds are present) Extremity Exam: Positive: Normal pulses Skin Exam: Positive: Nl turgor and temperature Neuro Exam: Positive: Strength at 5/5 X4 ext, Sensation Intact, Cranial Nerves 3-12 NL Assessment /Plan Problems (1) Sepsis Status: Acute Problem Text: Sepsis possibly secondary to acalculous cholecystitis WBC count is 21.3, lactic acid is 1.5, electrolytes are within normal limits including renal functions Continue IV fluids as per orders Continue Zosyn Continue pain management Zofran when necessary for nausea, vomiting Nothing by mouth except ice chips Repeat labs in a.m. (2) Acalculous cholecystitis Status: Acute Problem Text: Patient is nothing by mouth except ice chips She was seen by Dr. Quinn for surgical evaluation HIDA scan has been ordered as per surgery's recommendation Anti-IV antibiotics and pain management Further, as per surgical recommendations (3) HTN (hypertension) Status: Chronic Problem Text: Continue home meds (4) HLD (hyperlipidemia) Status: Chronic Problem Text: Continue home meds Plan/VTE VTE Prophylaxis Ordered?: Yes VS, I&O, 24H, Fishbone Vital Signs/I&O Vital Signs Date Time Temp Pulse Resp B/P (MAP) Pulse Ox O2 Delivery O2 Flow Rate FiO2 04/30/19 10:15 106 95 04/30/19 10:02 155/96 04/30/19 10:00 Room Air 04/30/19 07:00 98.0 16 I&O- Last 24 Hours up to 6 AM 04/30/19 06:00 Intake Total 2000 ml Output Total 400 ml Balance 1600 ml Laboratory Data 24H LABS Laboratory Tests 2 04/29/19 18:38: Immature Granulocyte % (Auto) 0.5, Neutrophils (%) (Auto) 92.0H, Lymphocytes (%) (Auto) 3.6L, Monocytes (%) (Auto) 3.5, Eosinophils (%) (Auto) 0.1, Basophils (%) (Auto) 0.3, Neutrophils # (Auto) 13.6H, Lymphocytes # (Auto) 0.5L, Monocytes # (Auto) 0.5, Eosinophils # (Auto) 0.0, Basophils # (Auto) 0.0, Nucleated Red Blood Cells % (auto) 0.0, Anion Gap 17H, Glomerular Filtration Rate > 60.0, Lactic Acid Level 3.0*H, Calcium Level 9.3, Total Bilirubin 1.6H, Direct Bilirubin 0.1, Aspartate Amino Transf (AST/SGOT) 44H, Alanine Aminotransferase (ALT/SGPT) 20, Alkaline Phosphatase 91, Total Creatine Kinase 149, Creatine Kinase MB 4.4H, Creatine Kinase MB Relative Index 2.95, Troponin I < 0.02, Total Protein 8.7H, Albumin 4.4, Albumin/Globulin Ratio 1.02, Thyroid Stimulating Hormone (TSH) 3.940H, Influenza Type A (RT-PCR) NEGATIVE, Influenza Type B (RT- PCR) NEGATIVE 04/29/19 19:48: Urine Color STRAW, Urine Appearance CLEAR, Urine pH 7.0, Urine Specific [place] 1.009, Urine Protein 2+H, Urine Glucose (UA) 1+H, Urine Ketones 2+H, Urine Blood 1+H, Urine Nitrite NEGATIVE, Urine Bilirubin NEGATIVE, Urine Urobilinogen 0.2, Urine Leukocyte Esterase NEGATIVE, Urine WBC (Auto) 0, Urine RBC (Auto) 2, Urine Hyaline Casts (Auto) 0, Urine Bacteria (Auto) NEGATIVE, Urine Squamous Epithelial Cells 0, Urine Mucus (Auto) SMALL, Urine Sperm (Auto) 04/29/19 20:44: Blood Gas Bicarbonate Standard 18.7, Venous Blood pH 7.309L, Venous Blood Partial Pressure CO2 37.9L, Venous Blood Partial Pressure O2 55.6H, Venous Blood Total Carbon Dioxide 19.8L, Venous Blood HCO3 18.6L, Venous Blood Oxygen Saturation 86.4H, Venous Blood Base Excess -6.9L 04/30/19 08:52: Nucleated Red Blood Cells % (auto) 0.0, Anion Gap 15, Glomerular Filtration Rate > 60.0, Lactic Acid Level 1.5, Calcium Level 9.0, Total Bilirubin 1.2H, Asp artate Amino Transf (AST/SGOT) 30, Alanine Aminotransferase (ALT/SGPT) 20, Alkaline Phosphatase 93, Total Protein 7.8, Albumin 4.2, Albumin/Globulin Ratio 1.17 CBC/BMP Laboratory Tests 04/29/19 18:38 04/30/19 08:52 Microbiology Microbiology 04/29/19 Blood Culture, Received Pending 04/29/19 Blood Culture, Received Pending BHARATHI PEGUERO MD Apr 30, 2019 10:51
--- NOTE | 2019-04-30 15:05 | REP ---
No biliary scan: History: Cholecystitis. Comparison CT study April 29, 2019. Technique: 6.6 mCi technetium 99 mebrofenin is injected and sequential anterior abdominal images are acquired. Scintigraphic findings: The initial hepatocellular parenchymal uptake phase is normal. The intrahepatic and extrahepatic biliary tract labeling is observed on the 10-minute image. Gallbladder is first visualized with confidence on the 15-minute image. There is normal washout from the liver parenchyma into the gallbladder and small intestine on subsequent images. Impression: Normal hepatobiliary scintigraphy. Electronically Signed by Ozzie Perez MD 04/30/2019 02:57 P
[2019-04-30 15:46] VITALS: BP 126/76
[2019-04-30 20:00] VITALS: BP 138/85
[2019-04-30] MEDS: GABAPENTIN 300 MG CAP PO SCH (20:24)
--- NOTE | 2019-04-30 21:45 | CR ---
DATE OF CONSULTATION: 04/30/2019 REASON FOR CONSULTATION: Question acalculous cholecystitis. BRIEF HISTORY OF PRESENT ILLNESS: The patient is a 73-year-old male who was at home, came into the hospital because he was not feeling well, having chills and overall denied any significant abdominal pain. No nausea, no vomiting, no acholic stools, no bilirubinuria. He overall had relatively vague complaints, and on admission to the emergency room, looked as though he had some sepsis. And the concern was whether this could be colitis that was appreciated on his CT scan or possibly acalculous cholecystitis. He was admitted overnight and was given IV fluids, IV antibiotics, and at this point, has been relatively stable overnight and I am asked to see him for additional recommendations. PAST MEDICAL HISTORY: Significant for a history of chronic coronary artery disease, history of dyslipidemia, history of CVA, history of hypertension, history of throat cancer, history of shingles, history of fatty liver, history of gastroesophageal reflux disease, diverticulosis, history of tonsillar cancer, history of cataract surgery. PHYSICAL EXAM: Reveals a frail man who looks older than stated age. HEENT is unremarkable. Lungs are diminished at the bases. A few crackles appreciated. No significant wheezing. Heart is regular with multiple irregular beats. Abdomen is soft, nondistended. Mild tenderness in the epigastric area in the right upper quadrant without significant guarding or rebound, although he does seem to wince slightly with deep palpation in the right upper quadrant. And I am not sure if that is secondary to my palpation itself or whether it is a true Shah's sign. IMPRESSION AND PLAN: The patient has edema, swelling around the gallbladder of undetermined etiology, although easily could be acalculous cholecystitis but he seems although he has edema throughout his mesentery and throughout his subcutaneous tissue and somewhat of an anasarca appearance. At this point, with his elevated white count and evidence of possible sepsis, I would recommend continuing him on antibiotics. Will see what the HIDA scan shows, and if the HIDA scan shows evidence of cystic duct obstruction, I would recommend proceeding with percutaneous cholecystostomy tube. However, if this is negative then I anticipate it is more likely to be some generalized colitis given his CT scan presentation and appropriate treatment with antibiotics at this point is recommended.
[2019-04-30 23:59] VITALS: BP 101/59
[2019-05-01] MEDS: LR 1,000 ML IV SCH (02:50)
[2019-05-01 04:00] VITALS: BP 147/90
[2019-05-01] MEDS: PIPERACILLIN/TAZOBACTAM SOD 3.375 GM in D5W MINI-BAG PLUS 50 ML IV SCH ×3 (05:16→18:33)
[2019-05-01] MEDS: LEVOTHYROXINE 50MCG TABLET (0.05MG) PO SCH (05:16)
[2019-05-01 06:11] LABS: BASO % 0.1 % (0.0-1.0); EOS % 0.1 % (0.0-3.0); HEMATOCRIT 37.4 % (42.0-52.0); LYMPH # 0.7 10^3/uL (1.5-5.0); LYMPH % 4.8 % (24.0-44.0); MEAN CORPUSCULAR HEMOGLOBIN 32.4 pg (27.0-33.0); MEAN CORPUSCULAR HGB CONC 35.3 g/dl (32.0-36.5); MEAN CORPUSCULAR VOLUME 91.7 fl (80.0-96.0); MONO # 1.1 10^3/uL (0.0-0.8); MONO % 6.8 % (0.0-5.0); NEUTROPHILS # 13.6 10^3/uL (1.5-8.5); NEUTROPHILS % 87.7 % (36.0-66.0); PLATELET COUNT, AUTOMATED 164 10^3/uL (150-450); RED BLOOD COUNT 4.08 10^6/uL (4.30-6.10); WHITE BLOOD COUNT 15.5 10^3/uL (4.0-10.0)
[2019-05-01 06:18] LABS: HEMOGLOBIN 13.2 g/dl (13.5-17.5); INR 1.27; PROTHROMBIN TIME 15.7 SECONDS (11.8-14.0)
[2019-05-01 06:37] LABS: ALBUMIN 2.8 GM/DL (3.2-5.2); ALT/SGPT 14 U/L (12-78); BLOOD UREA NITROGEN 14 MG/DL (7-18); CALCIUM LEVEL 8.3 MG/DL (8.8-10.2); CARBON DIOXIDE LEVEL 22 MEQ/L (21-32); CHLORIDE LEVEL 103 MEQ/L (98-107); CREATININE FOR GFR 1.14 MG/DL (0.70-1.30); GLOMERULAR FILTRATION RATE > 60.0 (>42); GLUCOSE, FASTING 97 MG/DL (70-100); MAGNESIUM LEVEL 1.6 MG/DL (1.8-2.4); POTASSIUM SERUM 3.5 MEQ/L (3.5-5.1); SODIUM LEVEL 134 MEQ/L (136-145)
[2019-05-01 07:42] VITALS: BP 127/62
[2019-05-01] MEDS: TAMSULOSIN 0.4 MG CAP PO SCH (08:43)
[2019-05-01] MEDS: SERTRALINE HCL 50 MG TAB PO SCH (08:43)
[2019-05-01] MEDS: OMEPRAZOLE 20 MG CAP PO SCH (08:43)
[2019-05-01] MEDS: LOSARTAN 50 MG TAB PO SCH (08:44)
[2019-05-01] MEDS: METOPROLOL SUCC (TopROL XL) 50MG **XL** TAB PO SCH (08:44)
[2019-05-01 12:00] VITALS: BP 126/76
[2019-05-01 15:46] VITALS: BP 105/64
[2019-05-01] MEDS ORDERED: POTASSIUM CHLORIDE 10 MEQ SR TABLET PO ONE (17:00)
--- NOTE | 2019-05-01 17:12 | IPNPDOC ---
Date Seen The patient was seen on 05/01/19. Progress Note SUBJECTIVE: 73-year-old male with past medical history of coronary artery disease, CVA, hypertension, hyperlipidemia, GERD, and throat cancer, was admitted for possible cholecystitis versus colitis. He underwent HIDA scan which was negative. Imaging was concerning for mild pancolitis, he remains on antibiotics. Patient reports improvement symptoms, has been nothing by mouth so far. He denies any shortness of breath, chest pain, nausea, vomiting, diarrhea or constipation. He does report new cough with minimal sputum production. 10 point review of system is negative except for above PHYSICAL EXAMINATION: VITAL SIGNS: Please see below. GENERAL: No distress HEENT: Normocephalic, atraumatic, moist mucous membranes NECK: Supple CARDIOVASCULAR EXAMINATION: S1, S2, no murmurs RESPIRATORY EXAMINATION: Scattered rhonchi, no wheezing ABDOMINAL EXAMINATION: Soft, nontender, nondistended, positive bowel sounds EXTREMITIES: Range of motion intact SKIN: No rash NEUROLOGICAL EXAMINATION: Alert and oriented 3, no focal deficits PSYCHIATRIC EXAMINATION: Calm and cooperative LABORATORY DATA, IMAGING STUDIES, MICROBIOLOGY: Please see below. DVT prophylaxis ordered?: Yes ASSESSMENT AND PLAN: 73-year-old male with past medical history of CVA, coronary artery disease, hypertension, hyperlipidemia and throat cancer, was admitted for colitis. PROBLEMS: 1. Colitis:, Unknown etiology, will advance diet as tolerated, starting with clear liquids, continue Zosyn for now. 2. URI: Respiratory viral panel positive for human rhinovirus, supportive care. 3. Coronary artery disease:, Stable, continue optimal medical management. (Aspirin, statin, beta nicole) 4. CVA: Continue aspirin and statin. 5. GERD: Continue home PPI. 6. Hypertension: Continue losartan and metoprolol DVT prophylaxis: Heparin subcutaneous GI prophylaxis: Home PPI VS, I&O, 24H, Fishbone Vital Signs/I&O Vital Signs Date Time Temp Pulse Resp B/P (MAP) Pulse Ox O2 Delivery O2 Flow Rate FiO2 05/01/19 15:46 98.5 79 18 105/64 (78) 95 Room Air I&O- Last 24 Hours up to 6 AM 05/01/19 06:00 Intake Total 3275 ml Output Total 375 ml Balance 2900 ml Laboratory Data 24H LABS Laboratory Tests 2 04/30/19 17:44: Bedside Glucose (Misc Panel) 101 05/01/19 00:18: Bedside Glucose (Misc Panel) 106 05/01/19 05:21: Immature Granulocyte % (Auto) 0.5, Neutrophils (%) (Auto) 87.7H, Lymphocytes (%) (Auto) 4.8L, Monocytes (%) (Auto) 6.8H, Eosinophils (%) (Auto) 0.1, Basophils (%) (Auto) 0.1, Neutrophils # (Auto) 13.6H, Lymphocytes # (Auto) 0.7L, Monocytes # (Auto) 1.1H, Eosinophils # (Auto) 0.0, Basophils # (Auto) 0.0, Nucleated Red Blood Cells % (auto) 0.0, Prothrombin Time 15.7H, Prothromb Time International Ratio 1.27, Anion Gap 9, Glomerular Filtration Rate > 60.0, Calcium Level 8.3L, Magnesium Level 1.6L, Total Bilirubin 1.0, Aspartate Amino Transf (AST/SGOT) 21, Alanine Aminotransferase (ALT/SGPT) 14, Alkaline Phosphatase 60, Total Protein 6.0#L, Albumin 2.8#L, Albumin/Globulin Ratio 0.88L 05/01/19 05:23: Bedside Glucose (Misc Panel) 92 CBC/BMP Laboratory Tests 05/01/19 05:21 Microbiology Microbiology 05/01/19 Respiratory Virus Panel (PCR) ([facility]) - Final, Complete Human Rhinovirus/Enterovirus 04/29/19 Blood Culture - Preliminary, Resulted No growth after 24 hours . All specim... 04/29/19 Blood Culture - Preliminary, Resulted No growth after 24 hours . All specim... ANURAG JEFFERS MD May 01, 2019 17:12
[2019-05-01] MEDS: MAG SULF 1GM/100ML (MAG RUN) 1 GM in IV 1 EA IV SCH ×3 (17:55→22:15)
[2019-05-01] MEDS: ASPIRIN 81 MG ENTERIC TAB PO SCH (18:33)
[2019-05-01 20:00] VITALS: BP 123/73
[2019-05-01] MEDS: HEPARIN SOD (PORCINE) 5000 UNITS/ML VIAL SQ SCH (21:13)
[2019-05-01] MEDS: GABAPENTIN 300 MG CAP PO SCH (21:13)
[2019-05-01] MEDS: SIMVASTATIN 40 MG TAB PO SCH (21:13)
[2019-05-01] MEDS ORDERED: MAGNESIUM SULFATE 1 GM/100 ML D5W BAG (10MG/ML) (J3475) As Ordered ONE (22:14)
[2019-05-02] VITALS (7 sets, daily range): BP systolic 100–139; BP diastolic 61–78
[2019-05-02] MEDS: PIPERACILLIN/TAZOBACTAM SOD 3.375 GM in D5W MINI-BAG PLUS 50 ML IV SCH ×2 (00:10→05:26)
[2019-05-02] MEDS: LEVOTHYROXINE 50MCG TABLET (0.05MG) PO SCH (05:26)
[2019-05-02] MEDS: HEPARIN SOD (PORCINE) 5000 UNITS/ML VIAL SQ SCH ×3 (05:26→21:05)
[2019-05-02 06:09] LABS: HEMATOCRIT 35.7 % (42.0-52.0); HEMOGLOBIN 12.5 g/dl (13.5-17.5); MEAN CORPUSCULAR HEMOGLOBIN 32.5 pg (27.0-33.0); MEAN CORPUSCULAR VOLUME 92.7 fl (80.0-96.0); PLATELET COUNT, AUTOMATED 163 10^3/uL (150-450); RED BLOOD COUNT 3.85 10^6/uL (4.30-6.10); WHITE BLOOD COUNT 11.4 10^3/uL (4.0-10.0)
[2019-05-02 06:20] LABS: INR 1.2; PROTHROMBIN TIME 14.9 SECONDS (11.8-14.0)
[2019-05-02 06:35] LABS: BLOOD UREA NITROGEN 13 MG/DL (7-18); CALCIUM LEVEL 8.3 MG/DL (8.8-10.2); CARBON DIOXIDE LEVEL 25 MEQ/L (21-32); CHLORIDE LEVEL 103 MEQ/L (98-107); CREATININE FOR GFR 1.12 MG/DL (0.70-1.30); GLOMERULAR FILTRATION RATE > 60.0 (>42); GLUCOSE, FASTING 93 MG/DL (70-100); MAGNESIUM LEVEL 2.2 MG/DL (1.8-2.4); PHOSPHORUS LEVEL 1.6 MG/DL (2.5-4.9); POTASSIUM SERUM 3.8 MEQ/L (3.5-5.1); SODIUM LEVEL 135 MEQ/L (136-145)
[2019-05-02] MEDS: OMEPRAZOLE 20 MG CAP PO SCH (09:11)
[2019-05-02] MEDS: ASPIRIN 81 MG ENTERIC TAB PO SCH (09:11)
[2019-05-02] MEDS: METOPROLOL SUCC (TopROL XL) 50MG **XL** TAB PO SCH (09:12)
[2019-05-02] MEDS: TAMSULOSIN 0.4 MG CAP PO SCH (09:12)
[2019-05-02] MEDS: SERTRALINE HCL 50 MG TAB PO SCH (09:12)
[2019-05-02] MEDS: LOSARTAN 50 MG TAB PO SCH (09:12)
[2019-05-02] MEDS: POTASSIUM PHOSPHATE INJ 30 MMOL in D5W 500 ML IV ONE ×2 (11:04→11:15)
[2019-05-02] MEDS: K-PHOS NEUTRAL 250MG TABLET (SOD.PHOSPHATE/POT.PHOSPHATE) PO SCH ×2 (16:32→21:05)
--- NOTE | 2019-05-02 19:29 | IPNPDOC ---
Date Seen The patient was seen on 05/02/19. Progress Note SUBJECTIVE: 73-year-old male with past medical history of coronary artery disease, CVA, hypertension, hyperlipidemia, GERD, and throat cancer, was admitted for possible cholecystitis versus colitis. He underwent HIDA scan which was negative. Imaging was concerning for mild pancolitis, he remains on antibiotics. Patient reports improvement symptoms, has been nothing by mouth so far. He denies any shortness of breath, chest pain, nausea, vomiting, diarrhea or constipation. He does report new cough with minimal sputum production. 05/02/19 No new complaints, GI symptoms have completely resolved, tolerating solid diet. He continues to have cough productive of sputum. He denies CP, N/V, abdominal pain or diarrhea. 10 point review of system is negative except for above PHYSICAL EXAMINATION: VITAL SIGNS: Please see below. GENERAL: No distress HEENT: Normocephalic, atraumatic, moist mucous membranes NECK: Supple CARDIOVASCULAR EXAMINATION: S1, S2, no murmurs RESPIRATORY EXAMINATION: Scattered rhonchi, no wheezing ABDOMINAL EXAMINATION: Soft, nontender, nondistended, positive bowel sounds EXTREMITIES: Range of motion intact SKIN: No rash NEUROLOGICAL EXAMINATION: Alert and oriented 3, no focal deficits PSYCHIATRIC EXAMINATION: Calm and cooperative LABORATORY DATA, IMAGING STUDIES, MICROBIOLOGY: Please see below. DVT prophylaxis ordered?: Yes ASSESSMENT AND PLAN: 73-year-old male with past medical history of CVA, coronary artery disease, hypertension, hyperlipidemia and throat cancer, was admitted for colitis. PROBLEMS: 1. Colitis: tolerating solids today, antibiotics discontinued, plan for d/c tomorrow if remains stable. 2. URI: Respiratory viral panel positive for human rhinovirus, supportive care. 3. Coronary artery disease:, Stable, continue optimal medical management. (Aspirin, statin, beta nicole) 4. CVA: Continue aspirin and statin. 5. GERD: Continue home PPI. 6. Hypertension: Continue losartan and metoprolol DVT prophylaxis: Heparin subcutaneous GI prophylaxis: Home PPI VS, I&O, 24H, Fishbone Vital Signs/I&O Vital Signs Date Time Temp Pulse Resp B/P (MAP) Pulse Ox O2 Delivery O2 Flow Rate FiO2 05/02/19 16:00 98.0 67 17 124/72 (89) 96 Room Air 05/02/19 04:00 I&O- Last 24 Hours up to 6 AM 05/02/19 06:00 Intake Total 1210 ml Output Total 350 ml Balance 860 ml Laboratory Data 24H LABS Laboratory Tests 2 05/02/19 05:28: Nucleated Red Blood Cells % (auto) 0.0, Prothrombin Time 14.9H, Prothromb Time International Ratio 1.20, Anion Gap 7L, Glomerular Filtration Rate > 60.0, Calcium Level 8.3L, Phosphorus Level 1.6L, Magnesium Level 2.2 CBC/BMP Laboratory Tests 05/02/19 05:28 Microbiology Microbiology 05/01/19 Respiratory Virus Panel (PCR) ([facility]) - Final, Complete Human Rhinovirus/Enterovirus 04/29/19 Blood Culture - Preliminary, Resulted No Growth after 72 hours. All specime... 04/29/19 Blood Culture - Preliminary, Resulted No Growth after 72 hours. All specime... ANURAG JEFFERS MD May 02, 2019 19:29
[2019-05-02] MEDS: SIMVASTATIN 40 MG TAB PO SCH (21:05)
[2019-05-02] MEDS: GABAPENTIN 300 MG CAP PO SCH (21:05)
[2019-05-03 04:00] VITALS: BP 136/77
[2019-05-03 05:19] LABS: INR 1.18; PROTHROMBIN TIME 14.7 SECONDS (11.8-14.0)
[2019-05-03] MEDS: LEVOTHYROXINE 50MCG TABLET (0.05MG) PO SCH (05:28)
[2019-05-03] MEDS: HEPARIN SOD (PORCINE) 5000 UNITS/ML VIAL SQ SCH (05:28)
[2019-05-03 07:52] VITALS: BP 128/72
[2019-05-03] MEDS: METOPROLOL SUCC (TopROL XL) 50MG **XL** TAB PO SCH (07:52)
[2019-05-03] MEDS: LOSARTAN 50 MG TAB PO SCH (07:52)
[2019-05-03] MEDS: SERTRALINE HCL 50 MG TAB PO SCH (07:53)
[2019-05-03] MEDS: K-PHOS NEUTRAL 250MG TABLET (SOD.PHOSPHATE/POT.PHOSPHATE) PO SCH (07:53)
[2019-05-03] MEDS: OMEPRAZOLE 20 MG CAP PO SCH (07:53)
[2019-05-03] MEDS: TAMSULOSIN 0.4 MG CAP PO SCH (07:53)
[2019-05-03] MEDS: ASPIRIN 81 MG ENTERIC TAB PO SCH (07:53)
[2019-05-03 08:00] VITALS: BP 128/72
--- NOTE | 2019-05-03 18:03 | DS.PDOC ---
Discharge Summary General Date of Admission Apr 29, 2019 at 23:12 Date of Discharge 05/03/19 Attending Physician: ANURAG JEFFERS MD Discharge Summary PROCEDURES PERFORMED DURING STAY: [None]. ADMITTING DIAGNOSES: 1. Colitis. DISCHARGE DIAGNOSES: 1. Colitis, Viral URI (Human rhinovirus) COMPLICATIONS/CHIEF COMPLAINT: Acalculous Cholecystitis. HISTORY OF PRESENT ILLNESS: 73 y.o male w/ PMH of HTN, HLD & TIA was admitted for colitis. He was initially thought to have acalculous cholecystitis as well but HIDA scan was negative and his empiric antibiotics were discontinued. Patient was also found to have a viral URI secondary to Human rhinovirus which was treated w/ supportive care. Patient is now able to tolerated adequate oral intake without have any nausea, abdominal pain or diarrhea. Patient is able to ambulate around the unit without any dyspnea or oxygen requirements. Patient is clinically and hemodynamically stable for discharge home with outpatient follow up. HOSPITAL COURSE: As above DISCHARGE MEDICATIONS: Please see below. ALLERGIES: Please see below. PHYSICAL EXAMINATION: VITAL SIGNS: Please see below. GENERAL: No distress HEENT: Normocephalic, atraumatic, moist mucous membranes NECK: Supple CARDIOVASCULAR EXAMINATION: S1, S2, no murmurs RESPIRATORY EXAMINATION: Scattered rhonchi, no wheezing ABDOMINAL EXAMINATION: Soft, nontender, nondistended, positive bowel sounds EXTREMITIES: Range of motion intact SKIN: No rash NEUROLOGICAL EXAMINATION: Alert and oriented 3, no focal deficits PSYCHIATRIC EXAMINATION: Calm and cooperative LABORATORY DATA: Please see below. IMAGING: HIDA scan negative PROGNOSIS: fair ACTIVITY: As tolerated DIET:cardiac DISCHARGE PLAN: f/u with PCP in 1-2 weeks DISPOSITION: 01 Home, Self-Care. DISCHARGE INSTRUCTIONS: 1. as above DISCHARGE CONDITION: Stable TIME SPENT ON DISCHARGE: Greater than 32 minutes. Vital Signs/I&Os Vital Signs Date Time Temp Pulse Resp B/P (MAP) Pulse Ox O2 Delivery O2 Flow Rate FiO2 05/03/19 08:00 98.0 71 18 128/72 (90) 97 Room Air 05/02/19 04:00 I&O- Last 24 Hours up to 6 AM 05/03/19 06:00 Intake Total 770 ml Output Total 350 ml Balance 420 ml Laboratory Data Labs 24H Laboratory Tests 2 05/03/19 04:33: Prothrombin Time 14.7H, Prothromb Time International Ratio 1.18 Microbiology Microbiology 05/01/19 Respiratory Virus Panel (PCR) ([facility]) - Final, Complete Human Rhinovirus/Enterovirus 04/29/19 Blood Culture - Preliminary, Resulted No Growth after 72 hours. All specime... 04/29/19 Blood Culture - Preliminary, Resulted No Growth after 72 hours. All specime... Discharge Medications Scheduled Aspirin (Aspir 81) 81 Mg Tablet.dr, 81 MG PO DAILY, (Reported) Cholecalciferol (Vitamin D3) (Vitamin D3) 400 Unit Capsule, 800 UNIT PO DAILY, (Reported) Gabapentin (Gabapentin) 300 Mg Capsule, 600 MG PO QHS, (Reported) Levothyroxine Sodium (Levothyroxine Sodium) 50 Mcg Tab, 50 MCG PO DAILY, (Reported) Losartan Potassium (Losartan Potassium) 100 Mg Tab, 100 MG PO DAILY, (Reported) Metoprolol Succinate (Metoprolol Succinate) 50 Mg Tab.er.24h, 50 MG PO DAILY, (Reported) Omeprazole (Omeprazole) 40 Mg Capsule.dr, 40 MG PO DAILY, (Reported) Sertraline Hcl (Sertraline HCl) 50 Mg Tablet, 50 MG PO DAILY, (Reported) Simvastatin (Simvastatin) 40 Mg Tab, 40 MG PO QHS, (Reported) Tamsulosin HCl (Flomax) 0.4 Mg Capsule, 0.4 MG PO DAILY, (Reported) Allergies Coded Allergies: ENVIROMENTAL (Verified Allergy, Unknown, 04/29/19) ANURAG JEFFERS MD May 03, 2019 18:03
== END 2019-05-03 15:10 | disposition home or self-care (01) | DRG 392 ==
LOC: M ED 17:49 → EDBD 17:49 → M ED INP 23:12 → M PCU 04-30 14:57
PROVIDERS: ADMIT Internal Medicine; ATTEND Internal Medicine
DX: K52.9 Noninfective gastroenteritis and colitis, unspecified (principal); J00 Acute nasopharyngitis [common cold]; I10 Essential (primary) hypertension; Z86.73 Personal history of transient ischemic attack (TIA), and cerebral infarction without residual deficits; Z79.899 Other long term (current) drug therapy; Z79.82 Long term (current) use of aspirin; I25.10 Atherosclerotic heart disease of native coronary artery without angina pectoris; E78.5 Hyperlipidemia, unspecified; K21.9 Gastro-esophageal reflux disease without esophagitis; K57.30 Diverticulosis of large intestine without perforation or abscess without bleeding; Z85.818 Personal history of malignant neoplasm of other sites of lip, oral cavity, and pharynx

== ENCOUNTER 2019-06-04 13:19 | Day surgery (SDC) | payer MEDICAID, MEDICARE ==
[~2019-06-04] VITALS: Ht 165.1 cm; Wt 63.1 kg
[~2019-06-04 13:19] MED LIST changes: -ARTIDRO2 OU; +GABA600T4 PO; +LR 1,000 ML IV SCH; -OMEP-172 PO; +OMEP1CAP73 PO; +OMEP40CA97 PO; +POLYOPD OU; +SERT-141 PO
[2019-06-04] MEDS ORDERED: propofoL 200 MG/20 ML VIAL As Ordered ONE ×2 (14:06→14:50)
[2019-06-04] MEDS ORDERED: LIDOCAINE 2% INJ 100 MG/5 ML SDV (FOR ANES.) As Ordered ONE (14:06)
[2019-06-04] MEDS ORDERED: fentaNYL 100 MCG/2 ML INJECTION (J3010) As Ordered ONE (14:06)
[2019-06-04] MEDS ORDERED: LIDOCAINE VISCOUS 2% SOLN 15ML UDC As Ordered ONE (14:16)
[2019-06-04] MEDS: CETACAINE SPRAY 5GM As Ordered ONE ×2 (14:58→15:05)
--- NOTE | 2019-06-04 15:24 | T-ECHO ---
DATE OF PROCEDURE: 06/04/2019 REFERRING PHYSICIAN: Dr. Paulo Norris PREPROCEDURE DIAGNOSIS: Right atrial mass NYD. POSTPROCEDURE DIAGNOSIS: Lipomatous hypertrophy of the anterior atrial septum. PROCEDURE PERFORMED: Transesophageal echocardiogram. PRINCIPAL FINDINGS: Lipomatous hypertrophy of the anterior atrial septum. PROCEDURE PERFORMED BY: Micky Russell MD PUNCH BOX TENDER: None. ANESTHESIA: Monitored anesthetic care per [employer]. COMPLICATIONS: None. PROCEDURE DESCRIPTION: The patient was given propofol by the [employer] BLOCK [employer]ENCH HAND. After receiving adequate sedation, esophageal intubation was accomplished by Dr. Russell without difficulty using a Edwards transesophageal echocardiogram probe. Rhythm was sinus. The left and right ventricle appeared were normal in size and systolic function and without regional wall motion abnormalities. No masses or thrombi were see within the atria or their appendages. The region of the anterior atrial septum was suspicious for a small patent foramen ovale but no color flow Doppler was seen crossing the atrial septum. Lipomatous hypertrophy was present involving the upper and lower portions of the anterior atrial septum, which likely accounts for the perceived right atrial mass on the previous transthoracic echocardiogram. Aortic valve was three-cuspid and displayed mild focal thickening. Trace aortic regurgitation was present. Mitral leaflets appears structural. Very mild mitral regurgitation was present. Tricuspid pulmonic valves were normal and without regurgitation. No pericardial effusion. Distal aortic arch and descending thoracic aorta showed mild atherosclerotic plaque. CONCLUSIONS: 1. Lipomatous hypertrophy of the anterior atrial septum. No cardiac chamber masses. 2. Normal left ventricle size and systolic function. LVEF of 65% by visual estimated. No regional wall motion abnormalities of the left ventricle. Normal right ventricle systolic function. 3. Mild aortic valve sclerosis with trace aortic regurgitation. 4. Mild atherosclerotic plaque in the distal aortic arch and descending thoracic aorta.
[2019-06-04 15:45] VITALS: BP 188/87
== END 2019-06-04 16:10 | disposition home or self-care (01) ==
LOC: M SDC 13:19
PROVIDERS: ATTEND Internal Medicine Cardiovascular Disease
DX: D17.4 Benign lipomatous neoplasm of intrathoracic organs (principal); I49.3 Ventricular premature depolarization; I35.0 Nonrheumatic aortic (valve) stenosis; I25.10 Atherosclerotic heart disease of native coronary artery without angina pectoris; I25.2 Old myocardial infarction; I10 Essential (primary) hypertension; K21.9 Gastro-esophageal reflux disease without esophagitis; D64.9 Anemia, unspecified; E78.00 Pure hypercholesterolemia, unspecified; F12.10 Cannabis abuse, uncomplicated; Z79.82 Long term (current) use of aspirin; Z79.899 Other long term (current) drug therapy
CPT/HCPCS: 93312; 93320; 93325; J3010

== ENCOUNTER → 2019-06-28 | Outpatient (REF) | payer MEDICARE, MEDICAID ==
[~2019-06-28] MED LIST changes: -LR 1,000 ML IV SCH
== END ==
LOC: M SFHCCAPE 09:32
PROVIDERS: ATTEND Physician Assistant
DX: D69.6 Thrombocytopenia, unspecified (principal); E55.9 Vitamin D deficiency, unspecified; Z53.8 Procedure and treatment not carried out for other reasons

== ENCOUNTER → 2019-07-03 | Outpatient (REF) | payer MEDICARE, MEDICAID ==
[2019-07-03 17:10] LABS: BASO # 0.1 10^3/uL (0.0-0.2); BASO % 0.6 % (0.0-1.0); EOS # 0.7 10^3/uL (0.0-0.5); EOS % 7.6 % (0.0-3.0); HEMATOCRIT 42.3 % (42.0-52.0); HEMOGLOBIN 14.3 g/dl (13.5-17.5); LYMPH % 11.2 % (24.0-44.0); MEAN CORPUSCULAR HEMOGLOBIN 32.3 pg (27.0-33.0); MEAN CORPUSCULAR HGB CONC 33.8 g/dl (32.0-36.5); MEAN CORPUSCULAR VOLUME 95.5 fl (80.0-96.0); MONO # 0.7 10^3/uL (0.0-0.8); MONO % 8.3 % (0.0-5.0); NEUTROPHILS # 6.4 10^3/uL (1.5-8.5); PLATELET COUNT, AUTOMATED 147 10^3/uL (150-450); RED BLOOD COUNT 4.43 10^6/uL (4.30-6.10); WHITE BLOOD COUNT 8.8 10^3/uL (4.0-10.0)
[2019-07-03 17:27] LABS: ALBUMIN 4.5 GM/DL (3.2-5.2); ALT/SGPT 24 U/L (12-78); BILIRUBIN,TOTAL 0.5 MG/DL (0.2-1.0); BLOOD UREA NITROGEN 12 MG/DL (7-18); CALCIUM LEVEL 8.6 MG/DL (8.8-10.2); CARBON DIOXIDE LEVEL 28 MEQ/L (21-32); CHLORIDE LEVEL 96 MEQ/L (98-107); CREATININE FOR GFR 0.99 MG/DL (0.70-1.30); GLOMERULAR FILTRATION RATE > 60.0 (>42); GLUCOSE, FASTING 73 MG/DL (70-100); POTASSIUM SERUM 4.7 MEQ/L (3.5-5.1); SODIUM LEVEL 130 MEQ/L (136-145); TOTAL PROTEIN 7.3 GM/DL (6.4-8.2)
[2019-07-03 17:35] LABS: TOTAL 25(OH) VITAMIN D 24.5 NG/ML (30.0-100.0)
== END ==
LOC: M SFHCCAPE 07:31
PROVIDERS: ATTEND Physician Assistant
DX: D69.6 Thrombocytopenia, unspecified (principal); E55.9 Vitamin D deficiency, unspecified

== ENCOUNTER → 2019-08-30 | Outpatient (REF) | payer MEDICARE, MEDICAID | LOC: M SFHCCLAY 10:59 | PROVIDERS: ATTEND Physician Assistant | DX: R19.7 Diarrhea, unspecified (principal) ==

== ENCOUNTER 2019-10-04 10:29 | Inpatient (IN) | payer MEDICAID, MEDICARE ==
--- NOTE | 2019-10-04 11:24 | REP ---
CT study of the cervical spine without contrast: History: Injury in a fall. Comparison CT cervical spine study January 30, 2018. Technique: Helical scanning is acquired and overlapping 2 mm high resolution axial images were generated and reviewed at bone and soft tissue window settings. Coronal and sagittal multiplanar re-formations images are generated. CT findings: There is no evidence of cervical spine element fracture. No skull base fracture is seen. Cervical vertebral body heights are preserved. Alignment is normal. Facet joints are normally aligned bilaterally at each cervical level on multiplanar re-formations images. There is no evidence of intraspinal or paraspinal hematoma. No extra vertebral abnormality is seen. There is degenerative disc disease at C4-5 C5-6 and C6-7 with disc space narrowing and posterior osteophytic ridging at these levels. There is a degenerative spondylolisthesis of C7 anteriorly with respect at T1, 4 mm. This is unchanged from the comparison study January 30, 2018. There is advanced osteoarthritic facet disease in the cervical spine, most pronounced on the left at C3-4. There is neural foraminal narrowing visible on the left at the C5-6 level. This is unchanged. Impression: Moderate degenerative spondylosis changes. Chronic 4 mm degenerative C7-T1 anterior subluxation. Otherwise negative CT study of the cervical spine without contrast. No fracture seen. Electronically Signed by Ozzie Perez MD 10/04/2019 11:16 A
--- NOTE | 2019-10-04 11:26 | REP ---
CHEST, SINGLE VIEW: There is no evidence of acute infiltrate. No pleural effusion is seen. The heart is normal in size. The mediastinal silhouette is unremarkable. The visualized osseous structures are intact. IMPRESSION: No acute pulmonary disease. Electronically Signed by Mayito Rascon MD 10/04/2019 02:54 P
--- NOTE | 2019-10-04 11:36 | REP ---
CT BRAIN WITHOUT CONTRAST: CT brain performed without IV contrast. Coronal reconstruction images are performed. Comparison: 02/21/2019 There is moderate atrophy again noted. There is no midline shift or mass effect. Old lacunar infarct is again seen in the left cerebellum. There is no acute hemorrhage. There is no extra-axial fluid collection. There are vascular calcifications of the carotid siphons. IMPRESSION: No change since the prior study 02/21/2019. There is atrophy. There is no midline shift or mass effect. There is an old lacunar infarct in the left cerebellum. There is no acute intracranial hemorrhage. Electronically Signed by Mayito Rascon MD 10/04/2019 02:55 P
[2019-10-04 11:37] LABS: BASO % 0.1 % (0.0-1.0); HEMATOCRIT 48.3 % (42.0-52.0); HEMOGLOBIN 17.4 g/dl (13.5-17.5); LYMPH # 0.4 10^3/uL (1.5-5.0); MEAN CORPUSCULAR HEMOGLOBIN 33.1 pg (27.0-33.0); MEAN CORPUSCULAR VOLUME 91.8 fl (80.0-96.0); MONO # 1.3 10^3/uL (0.0-0.8); MONO % 5.9 % (0.0-5.0); NEUTROPHILS # 19.8 10^3/uL (1.5-8.5); NEUTROPHILS % 91.1 % (36.0-66.0); PLATELET COUNT, AUTOMATED 163 10^3/uL (150-450); RED BLOOD COUNT 5.26 10^6/uL (4.30-6.10); WHITE BLOOD COUNT 21.7 10^3/uL (4.0-10.0)
[2019-10-04 12:43] LABS: AMPHETAMINES LEVEL URINE NEGATIVE (NEGATIVE); BARBITURATES URINE NEGATIVE (NEGATIVE); BENZODIAZEPINES URINE NEGATIVE (NEGATIVE); CANNABINOIDS URINE POSITIVE (NEGATIVE); COCAINE METABOLITE URINE NEGATIVE (NEGATIVE); METHADONE URINE NEGATIVE (NEGATIVE); OPIATES URINE NEGATIVE (NEGATIVE); PHENCYCLIDINE URINE NEGATIVE (NEGATIVE)
[2019-10-04] MEDS ORDERED: NS 1,000 ML IV ONE (13:00)
[2019-10-04 13:16] LABS: ACETAMINOPHEN LEVEL < 2.0 UG/ML (10.0-30.0); ALBUMIN 4.7 GM/DL (3.2-5.2); ALT/SGPT 34 U/L (12-78); BILIRUBIN,DIRECT 0.4 MG/DL (0.0-0.2); BILIRUBIN,TOTAL 1.3 MG/DL (0.2-1.0); BLOOD UREA NITROGEN 19 MG/DL (7-18); CALCIUM LEVEL 9.3 MG/DL (8.8-10.2); CARBON DIOXIDE LEVEL 21 MEQ/L (21-32); CHLORIDE LEVEL 100 MEQ/L (98-107); CK-MB VALUE MASS 28.5 NG/ML (<3.6); CPK CREATINE PHOSPHOKINASE 2137 U/L (39-308); CREATININE FOR GFR 1.16 MG/DL (0.70-1.30); ETHYL ALCOHOL (ETHANOL) < 0.003 % (0.000-0.010); GLOMERULAR FILTRATION RATE > 60.0 (>42); GLUCOSE, FASTING 102 MG/DL (70-100); MB/CK RELATIVE INDEX 1.33 (< OR =4); POTASSIUM SERUM 3.4 MEQ/L (3.5-5.1); SALICYLATE LEVEL 2.1 MG/DL (5.0-30.0); SODIUM LEVEL 133 MEQ/L (136-145); TOTAL PROTEIN 8.3 GM/DL (6.4-8.2); TROPONIN I 0.64 NG/ML (< 0.10)
[2019-10-04] MEDS ORDERED: METO1TAB32 PO (14:26)
[2019-10-04] MEDS ORDERED: VITAD1000T PO (14:26)
[2019-10-04] MEDS ORDERED: PATIENT COMMENT (14:26)
[2019-10-04] MEDS: NS 1,000 ML IV SCH (15:28)
[2019-10-04 15:35] VITALS: BP 154/89
[2019-10-04] MEDS: KCL 10MEQ/100ML SWI (KRUN) 10 MEQ in IV 1 EA IV SCH ×4 (15:43→22:17)
--- NOTE | 2019-10-04 16:45 | HPEPDOC ---
[facility] Medical History & Physical Date of Admission October 04, 2019 Date of Service: October 04, 2019 Primary Care Physician: PAPO NUNEZ PA-C Attending Physician: DOUG DORMAN MD History and Physical CHIEF COMPLAINT: AMS, found down HISTORY OF PRESENT ILLNESS: History obtained from ER staff and paramedics, as patient not participating with interview. Bryan Mathews is a 74 YO M with history of throat cancer, CVA and CAD (details unknown) who was brought to ED by EMS after being found down at home. Paramedics report the patient's neighbors heard water running from his apartment this morning at 0300. The water was still running around 0700 when the landlord was called. The patient was found laying on the floor of his living room unresponsive. There did not seem to be any evidence of trauma or any open bottles near the patient. His vitals were stable. He was moving all extremities but not responding to verbal/painful stimuli and not answering any questions. He continued to be altered in the ED. His workup thus far reveals leukocytosis, hypokalemia, rhabdomyolysis and an elevated troponin. Per recent primary care records, the patient has been undergoing workup for bradycardia (followed by Dr. Russell of Cardiology) and his Metoprolol was recently d/c'd. No other collateral information was able to be obtained. (THE FOLLOWING INFORMATION IS PER EMR) PAST MEDICAL HISTORY: Throat Cancer (finished radiation 05/2014). Stroke 2013. Shingles 2015. GERD. Hypertension. Hyperlipidemia. CAD. DYSPHAGIA. Diverticulosis PAST SURGICAL HISTORY: colonoscopy 2007 Tonsillar Cancer- [facility] ENT 2010 teeth extraction cataracts-both eyes Colonoscopy/endoscopy-throat stretched 02/2019 SOCIAL HISTORY: Lives alone, nonsmoker FAMILY HISTORY: Father: 66 yrs, Brain Tumor, diagnosed with Other malignant neoplasm of unspecified site Mother: 87 yrs, CHF, Unspecified heart disease Siblings: alive, Unspecified heart disease 1 brother(s) , 2 sister(s) - healthy. 1 Brother had Heart surgery. Mother and sister with congestive heart failure. Father with brain tumor. ALLERGIES: Please see below. REVIEW OF SYSTEMS: Unable to perform ROS due to patient's AMS* HOME MEDICATIONS: Please see below. PHYSICAL EXAMINATION: VITAL SIGNS: Please see below. GENERAL APPEARANCE: Laying in bed, appears stated age, unresponsive, mumbles random words HEENT: mucus membranes are dry, very poor dentition, EOMI, PERRL, neck is supple with no thyromegaly or lymphadenopathy RESPIRATORY: Lungs are clear to auscultation bilaterally with no adventitious breath sounds appreciated CARDIOVASCULAR: no JVD, RRR, no murmurs/rubs/gallops, normal S1 and S2 ABDOMEN: +BS, soft, nontender to palpation in all four quadrants, no masses/organomegaly EXTREMITIES: no clubbing, cyanosis or edema noted NEUROLOGICAL: unable to asses. Patient does move all extremities well PSYCHIATRIC: unable to assess Skin: No rashes or ulcers appreciated, skin tenting is present LN: No significant cervical or inguinal lymphadenopathy LABORATORY DATA: See below. IMAGING: JORGE 06/04/2019 1. Lipomatous hypertrophy of the anterior atrial septum. No cardiac chamber masses. 2. Normal left ventricle size and systolic function. LVEF of 65% by visual estimated. No regional wall motion abnormalities of the left ventricle. Normal right ventricle systolic function. 3. Mild aortic valve sclerosis with trace aortic regurgitation. 4. Mild atherosclerotic plaque in the distal aortic arch and descending thoracic aorta. CT BRAIN WITHOUT CONTRAST: CT brain performed without IV contrast. Coronal reconstruction images are performed. Comparison: 02/21/2019 There is moderate atrophy again noted. There is no midline shift or mass effect. Old lacunar infarct is again seen in the left cerebellum. There is no acute hemorrhage. There is no extra-axial fluid collection. There are vascular calcifications of the carotid siphons. IMPRESSION: No change since the prior study 02/21/2019. There is atrophy. There is no midline shift or mass effect. There is an old lacunar infarct in the left cerebellum. There is no acute intracranial hemorrhage. CHEST, SINGLE VIEW: There is no evidence of acute infiltrate. No pleural effusion is seen. The heart is normal in size. The mediastinal silhouette is unremarkable. The visualized osseous structures are intact. IMPRESSION: No acute pulmonary disease. CT study of the cervical spine without contrast: History: Injury in a fall. Comparison CT cervical spine study January 30, 2018. Technique: Helical scanning is acquired and overlapping 2 mm high resolution axial images were generated and reviewed at bone and soft tissue window settings. Coronal and sagittal multiplanar re-formations images are generated. CT findings: There is no evidence of cervical spine element fracture. No skull base fracture is seen. Cervical vertebral body heights are preserved. Alignment is normal. Facet joints are normally aligned bilaterally at each cervical level on multiplanar re-formations images. There is no evidence of intraspinal or paraspinal hematoma. No extra vertebral abnormality is seen. There is degenerative disc disease at C4-5 C5-6 and C6-7 with disc space narrowing and posterior osteophytic ridging at these levels. There is a degenerative spondylolisthesis of C7 anteriorly with respect at T1, 4 mm. This is unchanged from the comparison study January 30, 2018. There is advanced osteoarthritic facet disease in the cervical spine, most pronounced on the left at C3-4. There is neural foraminal narrowing visible on the left at the C5-6 level. This is unchanged. Impression: Moderate degenerative spondylosis changes. Chronic 4 mm degenerative C7-T1 anterior subluxation. Otherwise negative CT study of the cervical spine without contrast. No fracture seen. MICROBIOLOGY: Please see below. ASSESSMENT: This is a 74 YO M with history of CAD, CVA who was brought to the ED after being found down with AMS also found to have elevated troponins and leukocytosis. He will be admitted to the medical/surgical floor for further workup. . PLAN: 1. Altered mental status: -No obvious metabolic, infectious or endocrinologic etiology per labs and physical exam. Will order MRI brain to rule out brainstem or thalamic stroke -Fall/aspiration/speech precautions for now. -Speech therapy ordered for bedside eval as patient does have hx of CVA 2. Elevated troponins: given history of CAD, will r/o ACS vs type II CT -EKG without concerning changes -ASA per rectum -Will trend troponins. If it trends up, will consider transfer for cath 3. Elevated CK: likely 2/2 patient being down for unknown amount of time -NS IV fluids 100cc/hr x 3L -No evidence of end-organ damage at this time 4. SIRS: no clear source of infection at this time -WBC elevated at 21.7, tachycardia -Will start empiric IV Rocephin, will de-escalate as necessary -Blood cultures pending 5. Elevated bilirubin: patient does have history of acalculous cholecystitis -Liver US ordered -Liver enzymes WNL 6. Hypokalemia: K found to be 3.4 -Potassium replaced 7. History of hypothyroidism: -TSH WNL -Continue Levothyroxine for now 8. Unspecified mood disorder: -Continue Sertraline DVT ppx: SQH DISPO: Pending improvement of mental status, further workup necessary Vital Signs Vital Signs Date Time Temp Pulse Resp B/P (MAP) Pulse Ox O2 Delivery O2 Flow Rate FiO2 10/04/19 12:30 86 99 10/04/19 12:00 24 164/92 (116) Room Air 10/04/19 11:27 99.6 Laboratory Data Labs 24H Laboratory Tests 2 10/04/19 10:40: Immature Granulocyte % (Auto) 0.9, Neutrophils (%) (Auto) 91.1H, Lymphocytes (%) (Auto) 2.0L, Monocytes (%) (Auto) 5.9H, Eosinophils (%) (Auto) 0.0, Basophils (%) (Auto) 0.1, Neutrophils # (Auto) 19.8H, Lymphocytes # (Auto) 0.4L, Monocytes # (Auto) 1.3H, Eosinophils # (Auto) 0.0, Basophils # (Auto) 0.0, Nucleated Red Blood Cells % (auto) 0.0 10/04/19 11:09: Bedside Glucose (Misc Panel) 108 10/04/19 12:05: Urine Color YELLOW, Urine Appearance HAZY, Urine pH 6.0, Urine Specific [place] 1.018, Urine Protein 3+H, Urine Glucose (UA) NEGATIVE, Urine Ketones 1+H, Urine Blood 3+H, Urine Nitrite NEGATIVE, Urine Bilirubin NEGATIVE, Urine Urobilinogen 0.2, Urine Leukocyte Esterase NEGATIVE, Urine WBC (Auto) 2, Urine RBC (Auto) 2, Urine Hyaline Casts (Auto) 0, Urine Bacteria (Auto) NEGATIVE, Urine Squamous Epithelial Cells 0, Urine Mucus (Auto) SMALL, Urine Sperm (Auto) 10/04/19 12:06: Urine Opiates Screen NEGATIVE, Urine Methadone Screen NEGATIVE, Urine B arbiturates Screen NEGATIVE, Urine Phencyclidine Screen NEGATIVE, Urine Amphetamines Screen NEGATIVE, Urine Benzodiazepines Screen NEGATIVE, Urine Cocaine Metabolite Screen NEGATIVE, Urine Cannabinoids Screen POSITIVEH 10/04/19 12:14: Anion Gap 12, Glomerular Filtration Rate > 60.0, Lactic Acid Level 1.7, Calcium Level 9.3, Total Bilirubin 1.3H, Direct Bilirubin 0.4H, Aspartate Amino Transf (AST/SGOT) 93H, Alanine Aminotransferase (ALT/SGPT) 34, Alkaline Phosphatase 70, Total Creatine Kinase 2137H, Creatine Kinase MB 28.5H, Creatine Kinase MB Relative Index 1.33, Troponin I 0.64H, Total Protein 8.3H, Albumin 4.7, Albumin/Globulin Ratio 1.3, Thyroid Stimulating Hormone (TSH) 1.390, Salicylates Level 2.1L, Acetaminophen Level < 2.0L, Ethyl Alcohol Level < 0.003 CBC/BMP Laboratory Tests 10/04/19 10:40 10/04/19 12:14 Microbiology Microbiology 10/04/19 Blood Culture, Received Pending 10/04/19 Blood Culture, Received Pending Home Medications Scheduled Aspirin (Aspir 81) 81 Mg Tablet.dr, 81 MG PO DAILY Cholecalciferol (Vitamin D3) (Vitamin D3) 1,000 Unit Tablet, 1,000 UNITS PO DAILY Levothyroxine Sodium (Levothyroxine Sodium) 50 Mcg Tab, 50 MCG PO DAILY Metoprolol Succinate (Metoprolol Succinate) 25 Mg Tab.er.24h, 25 MG PO DAILY MD OFFICE STATES D/C ON 08/23/19, BUT PT FILLED RX ON 09/09/19. UNSURE IF PT TAKING OR NOT. Sertraline Hcl (Sertraline HCl) 50 Mg Tablet, 50 MG PO DAILY Simvastatin (Simvastatin) 40 Mg Tab, 40 MG PO QHS Miscellaneous Medications [Patient Comment] UNABLE TO VERIFY MEDICATIONS WITH PATIENT - MED LIST OBTAINED FROM PHARMACY AND LAST MD VISIT FROM 08/23/19 Allergies Coded Allergies: ENVIROMENTAL (Verified Allergy, Unknown, 06/01/19) A-FIB/CHADSVASC A-FIB History Current/History of A-Fib/PAF?: No GME ATTESTATION GME ATTESTATION My faculty preceptor for this patient encounter was physically present during the encounter and was fully available. All aspects of the patient interview, examination, medical decision making process, and medical care plan development were reviewed and approved by the faculty preceptor. The faculty preceptor is aware and concurs with the plan as stated in the body of this note and will attest to such by his/her cosignature. ATTENDING NOTE Patient was seen and examined by me and agree with the above assessment and plan KAYLA GONZALEZ MD October 04, 2019 13:54 DOUG DORMAN MD October 05, 2019 18:00
[2019-10-04] MEDS: cefTRIAXone SOD 2 GM in D5W MINI-BAG PLUS 50 ML IV SCH (17:00)
[2019-10-04 18:00] VITALS: BP 114/85
[2019-10-04 20:15] VITALS: BP 118/64
[2019-10-04] MEDS ORDERED: SIMVASTATIN 40 MG TAB PO SCH (21:00)
--- NOTE | 2019-10-04 21:29 | ECGEPIP ---
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
[2019-10-04 22:00] VITALS: BP 157/93
[2019-10-04] MEDS ORDERED: KCL 10MEQ IN STERILE WATER 100ML As Ordered ONE (22:15)
[2019-10-04] MEDS: HEPARIN SOD (PORCINE) 5000UNITS/ML VIAL (J1644 PER 1000UNITS) SC SCH (22:18)
--- NOTE | 2019-10-04 22:18 | REPVR ---
PROCEDURE INFORMATION: Exam: US Abdomen Limited, Right Upper Quadrant Exam date and time: 10/04/19 (9:32pm) Age: 74 years old Clinical indication: Elevated bilirubin. AMS. TECHNIQUE: Imaging protocol: Real-time ultrasound of the abdomen with image documentation. Examination was focused on the right upper quadrant. COMPARISON: US RENAL of 01/31/18 CT ABDOMEN PELVIS of 04/29/19 FINDINGS: Patient is confused and not cooperative. The liver is visually normal in size and general texture. No solid mass. Thinly septated right hepatic lobe cyst (1.5 x 1.6 x 1.6 cm size). No gallstones nor sludge. Thickened gallbladder wall (4 mm thickness). No pericholecystic fluid is appreciated. The CBD is not dilated (2.4 mm diameter). The pancreas is obscured by bowel gas. The right kidney measures 9.1 cm in length, with no hydronephrosis appreciated. Prominent renal sinus fat. No ascites is seen. IMPRESSION: Thinly septated right hepatic lobe cyst (1.6 cm size ) (also seen on CT scan in 2018). Thickened gallbladder wall. No gallstones nor sludge. Clinical correlation is needed. Cannot exclude acute cholecystitis. (thickened, inflamed gallbladder also seen on CT scan in 2018). No biliary obstruction. The pancreas is obscured by bowel gas. Electronically signed by: Cheri Rios On 10/04/2019 22:18:07 PM
[2019-10-05] VITALS (12 sets, daily range): BP systolic 130–202; BP diastolic 74–102
[2019-10-05] MEDS ORDERED: THIAMINE 100 MG TAB PO SCH (02:13)
[2019-10-05] MEDS ORDERED: LORazepam 2 MG TAB PO PRN (02:15)
[2019-10-05] MEDS ORDERED: LORazepam 2 MG/ML VIAL (J2060) IV PRN (02:50)
[2019-10-05 02:59] LABS: ALT/SGPT 41 U/L (12-78); BLOOD UREA NITROGEN 22 MG/DL (7-18); CALCIUM LEVEL 8.7 MG/DL (8.8-10.2); CARBON DIOXIDE LEVEL 20 MEQ/L (21-32); CHLORIDE LEVEL 105 MEQ/L (98-107); CREATININE FOR GFR 1.23 MG/DL (0.70-1.30); GLOMERULAR FILTRATION RATE > 60.0 (>42); GLUCOSE, FASTING 97 MG/DL (70-100); POTASSIUM SERUM 4.1 MEQ/L (3.5-5.1); SODIUM LEVEL 136 MEQ/L (136-145)
[2019-10-05 03:00] LABS: ALBUMIN 4.2 GM/DL (3.2-5.2); TOTAL PROTEIN 7.7 GM/DL (6.4-8.2); TROPONIN I 0.35 NG/ML (< 0.10)
[2019-10-05] MEDS ORDERED: MULTIVITAMIN -ADULT INJECTION 10 ML, THIAMINE INJection 100 MG, FOLIC ACID 1 MG in NS 1... IV ONE ×2 (03:00→03:30)
--- NOTE | 2019-10-05 05:20 | IPNPDOC ---
Date Seen The patient was seen on 10/05/19. Progress Note SUBJECTIVE: Resident called by nursing staff, patient had fall at 01:45, did not hit head. At 01:45 patient was noted to have "thrashing" of legs in bed, as per nursing appeared to be seizure-like activity. Lasted 1 min. No tongue biting, loss of bowel or bladder but what was concerning for a post-ictal phase and also they were concerned for airway during event. VS were stable. When assessed by myself, patient was very hard of hearing but awake, alert and following commands. He denied n/v, shortness of breath, lightheadedness, dizziness. Strength 5/5 in all extremities, no focal deficits. No ativan was given during event. LDH, prolactin and CK ordered and are pending OBJECTIVE: VITAL SIGNS: Please see below PHYSICAL EXAMINATION: CONSTITUTIONAL: No acute distress, resting comfortably, AAO x 3, very hard of hearing but following commands EYES: PERRLA, EOM intact HENT, MOUTH: Normocephalic, atraumatic, moist mucous membranes NECK: SUPPLE, no JVD, no lymphadenopathy, no carotid bruit CV: Regular rate and rhythm, S1S2 normal, no murmurs/rubs/gallops RESPIRATORY: Clear to auscultation bilaterally, no rales/rhonchi/wheezes GI: BS positive in 4 quadrants, soft, nontender, nondistended, no rebound or guarding, no organomegaly : Deferred MUSCULOSKELETAL: Normal ROM. No cyanosis, clubbing, swelling, joint deformity, extremity edema INTEGUMENTARY: Intact, no rashes, no lesions, no erythema NEUROLOGIC: Cranial Nerves II-XII are intact, no focal deficits, strength 5/5 in all extremities, PSYCHIATRIC: flat affect ASSESSMENT/PLAN: 1. Seizure-like activity. No residual neuro deficits if this was seizure, currently back to baseline. Hx of alcohol use daily; however, VS have been stable so likely not seizure 2/2 to withdrawl. Ordered CIWA protocol to be begin though and started banana bag. LDH, prolactin, CK ordered. MRI already to be done, ordered by primary team. Will notify AM team of events. VS, I&O, 24H, Fishbone Vital Signs/I&O Vital Signs Date Time Temp Pulse Resp B/P (MAP) Pulse Ox O2 Delivery O2 Flow Rate FiO2 10/05/19 02:40 92 140/92 10/05/19 02:00 97.8 14 96 Room Air I&O- Last 24 Hours up to 6 AM 10/05/19 06:00 Intake Total 1475 ml Output Total 0 ml Balance 1475 ml Laboratory Data 24H LABS Laboratory Tests 2 10/04/19 10:40: Immature Granulocyte % (Auto) 0.9, Neutrophils (%) (Auto) 91.1H, Lymphocytes (%) (Auto) 2.0L, Monocytes (%) (Auto) 5.9H, Eosinophils (%) (Auto) 0.0, Basophils (%) (Auto) 0.1, Neutrophils # (Auto) 19.8H, Lymphocytes # (Auto) 0.4L, Monocytes # (Auto) 1.3H, Eosinophils # (Auto) 0.0, Basophils # (Auto) 0.0, Nucleated Red Blood Cells % (auto) 0.0 10/04/19 11:09: Bedside Glucose (Misc Panel) 108 10/04/19 12:05: Urine Color YELLOW, Urine Appearance HAZY, Urine pH 6.0, Urine Specific [place] 1.018, Urine Protein 3+H, Urine Glucose (UA) NEGATIVE, Urine Ketones 1+H, Urine Blood 3+H, Urine Nitrite NEGATIVE, Urine Bilirubin NEGATIVE, Urine Urobilinogen 0.2, Urine Leukocyte Esterase NEGATIVE, Urine WBC (Auto) 2, Urine RBC (Auto) 2, Urine Hyaline Casts (Auto) 0, Urine Bacteria (Auto) NEGATIVE, Urine Squamous Epithelial Cells 0, Urine Mucus (Auto) SMALL, Urine Sperm (Auto) 10/04/19 12:06: Urine Opiates Screen NEGATIVE, Urine Methadone Screen NEGATIVE, Urine Barbiturates Screen NEGATIVE, Urine Phencyclidine Screen NEGATIVE, Urine Amphetamines Screen NEGATIVE, Urine Benzodiazepines Screen NEGATIVE, Urine Cocaine Metabolite Screen NEGATIVE, Urine Cannabinoids Screen POSITIVEH 10/04/19 12:14: Anion Gap 12, Glomerular Filtration Rate > 60.0, Lactic Acid Level 1.7, Calcium Level 9.3, Total Bilirubin 1.3H, Direct Bilirubin 0.4H, Aspartate Amino Transf (AST/SGOT) 93H, Alanine Aminotransferase (ALT/SGPT) 34, Alkaline Phosphatase 70, Total Creatine Kinase 2137H, Creatine Kinase MB 28.5H, Creatine Kinase MB Relative Index 1.33, Troponin I 0.64H, Total Protein 8.3H, Albumin 4.7, Albumin/Globulin Ratio 1.3, Thyroid Stimulating Hormone (TSH) 1.390, Salicylates Level 2.1L, Acetaminophen Level < 2.0L, Ethyl Alcohol Level < 0.003 10/04/19 17:05: Troponin I 0.51#H 10/04/19 20:16: Bedside Glucose (Misc Panel) 87 10/05/19 01:42: Bedside Glucose (Misc Panel) 94 10/05/19 02:09: Anion Gap 11, Glomerular Filtration Rate > 60.0, Calcium Level 8.7L, Total Bilirubin 1.0, Aspartate Amino Transf (AST/SGOT) 114H, Alanine Aminotransferase (ALT/SGPT) 41, Alkaline Phosphatase 61, Troponin I 0.35#H, Total Protein 7.7, Albumin 4.2, Albumin/Globulin Ratio 1.2 CBC/BMP Laboratory Tests 10/04/19 10:40 10/04/19 12:14 10/05/19 02:09 Microbiology Microbiology 10/04/19 Blood Culture, Received Pending 10/04/19 Blood Culture, Received Pending Rebekah Laguna MD October 05, 2019 05:20
[2019-10-05 05:50] LABS: CPK CREATINE PHOSPHOKINASE 1702 U/L (39-308); LDH LACTATE DEHYDROGENASE 362 U/L (87-241)
[2019-10-05] MEDS ORDERED: LEVOTHYROXINE 50MCG TABLET (0.05MG) PO SCH (06:00)
[2019-10-05 06:14] LABS: HEMATOCRIT 43.7 % (42.0-52.0); MEAN CORPUSCULAR HEMOGLOBIN 32.4 pg (27.0-33.0); MEAN CORPUSCULAR VOLUME 92.6 fl (80.0-96.0); PLATELET COUNT, AUTOMATED 156 10^3/uL (150-450); RED BLOOD COUNT 4.72 10^6/uL (4.30-6.10); WHITE BLOOD COUNT 23.1 10^3/uL (4.0-10.0)
[2019-10-05 06:20] LABS: HEMOGLOBIN 15.3 g/dl (13.5-17.5)
[2019-10-05 06:33] LABS: BLOOD UREA NITROGEN 21 MG/DL (7-18); CALCIUM LEVEL 8.9 MG/DL (8.8-10.2); CARBON DIOXIDE LEVEL 18 MEQ/L (21-32); CHLORIDE LEVEL 107 MEQ/L (98-107); CREATININE FOR GFR 1.01 MG/DL (0.70-1.30); GLOMERULAR FILTRATION RATE > 60.0 (>42); GLUCOSE, FASTING 92 MG/DL (70-100); POTASSIUM SERUM 4.2 MEQ/L (3.5-5.1); SODIUM LEVEL 137 MEQ/L (136-145)
[2019-10-05] MEDS: NS 1,000 ML IV SCH (06:52)
[2019-10-05] MEDS ORDERED: ASPIRIN 81 MG ENTERIC TAB XX SCH (09:00)
[2019-10-05] MEDS ORDERED: FOLIC ACID 1 MG TAB PO SCH (09:00)
[2019-10-05] MEDS ORDERED: ASPIRIN 300 MG SUPP PR SCH (09:00)
[2019-10-05] MEDS ORDERED: ASPIRIN 81 MG ENTERIC TAB PO SCH (09:00)
[2019-10-05] MEDS ORDERED: MULTIVITAMINS/MINERALS THERAP 1 TAB PO SCH (09:00)
[2019-10-05] MEDS ORDERED: LEVOTHYROXINE 100MCG (0.1MG) VIAL IV SCH (09:00)
[2019-10-05] MEDS: SERTRALINE HCL 50 MG TAB PO SCH (10:43)
[2019-10-05] MEDS: HEPARIN SOD (PORCINE) 5000UNITS/ML VIAL (J1644 PER 1000UNITS) SC SCH ×2 (10:44→22:10)
[2019-10-05 10:54] LABS: PROLACTIN 14.3 NG/ML (2.1-17.7)
[2019-10-05] MEDS: ASPIRIN 81 MG ENTERIC TAB PO SCH (12:47)
--- NOTE | 2019-10-05 13:34 | IPNPDOC ---
Text Note Date of Service The patient was seen on 10/05/19. NOTE Patient was seen and examined this morning. He has much improved and is respo nding appropriately. He was sitting in the chair and having his breakfast. PHYSICAL EXAMINATION: GENERAL APPEARANCE: Laying in bed, appears stated age, alert, oriented to place and person HEENT: EOMI, PERRL, neck is supple with no thyromegaly or lymphadenopathy, moist mucous membranes RESPIRATORY: Lungs are clear to auscultation bilaterally with no adventitious breath sounds appreciated CARDIOVASCULAR: no JVD, RRR, no murmurs/rubs/gallops, normal S1 and S2 ABDOMEN: +BS, soft, nontender to palpation in all four quadrants, no masses/organomegaly EXTREMITIES: no clubbing, cyanosis or edema noted NEUROLOGICAL: Cranials were grossly normal. He is moving all his extremities spontaneously. Strength 5 out of 5 in upper and lower extremities. Skin: No rashes or ulcers appreciated, skin tenting is present Labs reviewed Radiology reviewed Assessment and plan This is a 74 YO M with history of CAD status post PCI, CVA with no residual weakness as per prior documentation, history of alcohol abuse. As per the history provided by the family who was brought to the ED after being found lying on the floor with last normal self known a day before. He was admitted for alteration in mental status, elevated CK. 1. Altered mental status: Improving. No obvious metabolic, infectious, or endocrine causes found. He was looking dry and for that reason has been given IV fluids in a total of 2 L and was continued on 100 mL per hour. His CAT scan of the head was done which came out to be negative. CT scan of cervical spine was done which also came out to be negative for any acute pathology. We still have ordered an MRI to rule out any thalamic infarcts causing hypersomnolence and alteration in mental status. No carotid bruits are present. He also has a history of alcohol abuse and for that reason. Currently has been put on CIWA protocol. His alcohol levels were negative. As there were some concerns of seizures. His prolactin levels were done which came out to be negative as well. We'll await MRI and then take a decision regarding an EEG. Neurology be considered if needed. Speech and swallow was done which she cleared this morning and he has been started on nectar thick liquid diet. 2. Elevated troponins: given history of CAD, will r/o ACS vs type II DC: ACS was ruled out by repeated troponins and EKGs. He has a flat trend her troponins and given his dehydration and history of CAD. Likely this was type II DC. We'll continue his aspirin and statins. Aspirin changed to oral route. He will definitely require outpatient cardiology follow-up for possible cardiac workup and a possible stress test. 3. Elevated CK: likely 2/2 patient being down for unknown amount of time: Will continue to trend and monitor the renal function. Continue IV fluids. 4. SIRS: Given elevated abuse. He count and mild tachycardia. The patient had 2 out of 4 sets criteria and was given empiric IV Rocephin and all the cultures were done which came out to be negative. His x-ray lung was normal and UA was clean. We will continue to monitor the blood cultures. No clear source of infection at this time This could have been reactive leukocytosis. He also had mildly elevated bilirubin and has a history of a calculus cholecystitis and for that reason, liver sonogram was done and will follow that. We'll trend the liver enzymes. On clinical examination. There is no signs of cholecystitis or cholangitis. 5. History of hypothyroidism: Continue Synthroid. TSH within normal limits. 6. Alcohol abuse. Though the patient was not able to provide us with that history, but as per the family members. He abuses alcohol on a daily basis. Currently, he has been put on [place] protocol and thiamine, folic acid and vitamin B12 have been started. We will keep an eye on his vitals and look for any delirium tremens. PT, OT consult Case management consult for possible placement Disposition unknown at this time. VS,Fishbone, I+O VS, Fishbone, I+O Laboratory Tests 10/05/19 02:09 10/05/19 05:52 Vital Signs Date Time Temp Pulse Resp B/P (MAP) Pulse Ox O2 Delivery O2 Flow Rate FiO2 10/05/19 10:00 98.4 90 15 155/77 (103) 98 Room Air I&O- Last 24 Hours up to 6 AM 10/05/19 06:00 Intake Total 1475 ml Output Total 0 ml Balance 1475 ml DOUG DORMAN MD October 05, 2019 13:34
[2019-10-05] MEDS ORDERED: VARIBAR PUDDING 40% w/v 230ML TUBE As Ordered ONE (14:28)
[2019-10-05] MEDS ORDERED: E-Z-PAQUE 96% w/w SUSP 176GM BTL As Ordered ONE (14:28)
[2019-10-05] MEDS ORDERED: VARIBAR NECTAR 40% w/v 240ML SUSP BTL As Ordered ONE (14:28)
[2019-10-05] MEDS: ACETAMINOPHEN TAB 650MG DOSE (2X325MG) PO PRN (15:29)
--- NOTE | 2019-10-05 16:03 | REP ---
MODIFIED BARIUM SWALLOW: Modified barium swallow is performed. I performed fluoroscopy while the speech pathologist administered barium materials orally. There was aspiration with nectar-thin liquid. Honey thick liquid demonstrated no evidence of penetration or aspiration. Pudding demonstrated no penetration or aspiration. There was some mild delayed transit in the lower cervical esophagus. 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 It is cleared with subsequent drinking. Please see the speech pathologist report for more details. 2 minutes of fluoroscopy time is utilized. Electronically Signed by Mayito Rascon MD 10/05/2019 04:11 P
[2019-10-05] MEDS: cefTRIAXone SOD 2 GM in D5W MINI-BAG PLUS 50 ML IV SCH (18:25)
--- NOTE | 2019-10-05 18:26 | REPVR ---
PROCEDURE INFORMATION: Exam: MR Head Without Contrast Exam date and time: 10/05/2019 5:53 PM Age: 74 years old Clinical indication: Altered mental status/memory loss; Other: Withdrawl; Patient HX: PT has moments of AMS, tremors that come and go. Pts nurse states withdrawal symptoms; Additional info: HX CVA TECHNIQUE: Imaging protocol: MR of the head without contrast. COMPARISON: MRI-Brain W/O FOLL BY WITH 06/14/2016 3:29 PM FINDINGS: Brain: No acute infarct. Effusion in the left mastoid air cells. No hemorrhage. Ventricles: Normal. No ventriculomegaly. Bones/joints: Unremarkable. Soft tissues: Unremarkable. Sinuses: Normal as visualized. No acute sinusitis. Mastoid air cells: See "Brain" finding. Orbits: Unremarkable. IMPRESSION: No acute intracranial abnormality. Effusion in left mastoid air cells. Electronically signed by: Yousuf Falk On 10/05/2019 18:26:21 PM
[2019-10-05] MEDS ORDERED: LOSARTAN 25 MG TAB PO SCH (19:30)
[2019-10-06 02:00] VITALS: BP 190/90
[2019-10-06] MEDS ORDERED: LOSARTAN 25 MG TAB PO ONE (02:45)
[2019-10-06 05:15] VITALS: BP 170/90
[2019-10-06] MEDS ORDERED: LEVOTHYROXINE 50MCG TABLET (0.05MG) PO SCH (06:00)
[2019-10-06 06:25] LABS: HEMATOCRIT 47.8 % (42.0-52.0); HEMOGLOBIN 16.9 g/dl (13.5-17.5); MEAN CORPUSCULAR HEMOGLOBIN 32.4 pg (27.0-33.0); MEAN CORPUSCULAR HGB CONC 35.4 g/dl (32.0-36.5); MEAN CORPUSCULAR VOLUME 91.6 fl (80.0-96.0); PLATELET COUNT, AUTOMATED 147 10^3/uL (150-450); RED BLOOD COUNT 5.22 10^6/uL (4.30-6.10); WHITE BLOOD COUNT 16.3 10^3/uL (4.0-10.0)
[2019-10-06 06:44] LABS: BLOOD UREA NITROGEN 14 MG/DL (7-18); CALCIUM LEVEL 8.6 MG/DL (8.8-10.2); CARBON DIOXIDE LEVEL 25 MEQ/L (21-32); CHLORIDE LEVEL 101 MEQ/L (98-107); CREATININE FOR GFR 0.86 MG/DL (0.70-1.30); GLOMERULAR FILTRATION RATE > 60.0 (>42); GLUCOSE, FASTING 115 MG/DL (70-100); POTASSIUM SERUM 3.3 MEQ/L (3.5-5.1); SODIUM LEVEL 136 MEQ/L (136-145)
[2019-10-06] MEDS ORDERED: POTASSIUM CHLORIDE 10 MEQ SR TABLET PO ONE (09:00)
[2019-10-06] MEDS ORDERED: LOSARTAN 50MG TABLET PO SCH (09:00)
[2019-10-06 10:00] VITALS: BP 160/102
[2019-10-06] MEDS: SERTRALINE HCL 50 MG TAB PO SCH (10:23)
[2019-10-06] MEDS: ASPIRIN 81 MG ENTERIC TAB PO SCH (10:23)
[2019-10-06] MEDS: HEPARIN SOD (PORCINE) 5000UNITS/ML VIAL (J1644 PER 1000UNITS) SC SCH ×2 (10:24→20:49)
[2019-10-06] MEDS ORDERED: LOSA50TA88 PO (11:51)
[2019-10-06 14:00] VITALS: BP 160/100
[2019-10-06 16:00] VITALS: BP 160/90
--- NOTE | 2019-10-06 16:31 | IPNPDOC ---
Date Seen The patient was seen on 10/06/19. Progress Note SUBJECTIVE: Patient was seen and examined at the bedside this morning. He still seems to be somewhat confused about where he is. He does report that he is trying to get in touch with his niece to let her know that he is coming home. He requests assistance with getting a ride home. Nursing reports that he is still experiencing "word salad" and expresses concerns about sending him home today. Full workup has been negative thus far. He is oriented to person and time, but not to place (he thinks he is in [place]). OBJECTIVE PHYSICAL EXAMINATION: GENERAL APPEARANCE: Laying in bed, appears stated age, alert, oriented to place and person HEENT: EOMI, PERRL, neck is supple with no thyromegaly or lymphadenopathy, moist mucous membranes RESPIRATORY: Lungs are clear to auscultation bilaterally with no adventitious breath sounds appreciated CARDIOVASCULAR: no JVD, RRR, no murmurs/rubs/gallops, normal S1 and S2 ABDOMEN: +BS, soft, nontender to palpation in all four quadrants, no willy s/organomegaly EXTREMITIES: no clubbing, cyanosis or edema noted NEUROLOGICAL: Cranials were grossly normal. He is moving all his extremities spontaneously. Strength 5 out of 5 in upper and lower extremities. Skin: No rashes or ulcers appreciated, skin tenting is present PSYCH: mood/affect normal LABORATORY DATA, IMAGING STUDIES, MICROBIOLOGY: Please see below. ASSESSMENT AND PLAN: This is a 74 YO M with history of CAD, CVA with unk residual deficits who presented after being found down alone in his apartment found to have altered mental status. At this point, workup has been unrevealing as to the cause of the patient's AMS. Due to the lack of family support, the patient will most likely require placement. PROBLEMS: 1. AMS: -Somewhat resolved, although patient still not oriented to place. Unsure if this is patient's baseline. All attempts to contact family members have been unsucce ssful. Will continue to attempt to contact -PFS involved, seeking placement for the patient. -Workup, including TSH, CT head unrevealing 2. Elevated troponins in setting of history of CAD -Troponins initally elevated, trended down -No EKG changes noted. Likely demand ischemia vs type II [place] -Continue ASA, statin 3. Elevated CK: -s/p fluid resuscitation 4. ?EtOH abuse: no signs of withdrawal at this time -[facility] protocol -Thiamine, multivitamin 5. Hx hypothyroidism: -Continue Levothyroxine 6. HTN: -Patient's home dose of 100mg Losartan restarted DISPOSITION: Pending placement VS, I&O, 24H, Fishbone Vital Signs/I&O Vital Signs Date Time Temp Pulse Resp B/P (MAP) Pulse Ox O2 Delivery O2 Flow Rate FiO2 10/06/19 14:00 98.5 100 19 160/100 (120) 98 Room Air I&O- Last 24 Hours up to 6 AM 10/06/19 05:59 Intake Total 2271.2 ml Output Total 950 ml Balance 1321.2 ml Laboratory Data 24H LABS Laboratory Tests 2 10/06/19 05:51: Nucleated Red Blood Cells % (auto) 0.0, Anion Gap 10, Glomerular Filtration Rate > 60.0, Calcium Level 8.6L CBC/BMP Laboratory Tests 10/06/19 05:51 Microbiology Microbiology 10/04/19 Blood Culture - Preliminary, Resulted No Growth after 48 hours. All Specime... 10/04/19 Blood Culture - Preliminary, Resulted No Growth after 48 hours. All Specime... GME ATTESTATION GME ATTESTATION My faculty preceptor for this patient encounter was physically present during the encounter and was fully available. All aspects of the patient interview, examination, medical decision making process, and medical care plan development were reviewed and approved by the faculty preceptor. The faculty preceptor is aware and concurs with the plan as stated in the body of this note and will attest to such by his/her cosignature. ATTENDING NOTE Patient seen and examined by me with the residents. Agree with the above assessment and plan KAYLA GONZALEZ MD October 06, 2019 16:31 DOUG DORMAN MD October 06, 2019 17:07
[2019-10-06] MEDS: cefTRIAXone SOD 2 GM in D5W MINI-BAG PLUS 50 ML IV SCH (18:30)
[2019-10-06 22:00] VITALS: BP 174/90
[2019-10-07] VITALS (7 sets, daily range): BP systolic 124–172; BP diastolic 80–98
[2019-10-07] MEDS: ACETAMINOPHEN TAB 650MG DOSE (2X325MG) PO PRN ×2 (00:05→21:46)
[2019-10-07] MEDS: LEVOTHYROXINE 50MCG TABLET (0.05MG) PO SCH (05:48)
[2019-10-07] MEDS ORDERED: LEVOTHYROXINE 100MCG TABLET (0.1MG) PO SCH (06:00)
[2019-10-07 06:22] LABS: HEMATOCRIT 49.1 % (42.0-52.0); HEMOGLOBIN 17.5 g/dl (13.5-17.5); MEAN CORPUSCULAR HEMOGLOBIN 32.8 pg (27.0-33.0); MEAN CORPUSCULAR HGB CONC 35.6 g/dl (32.0-36.5); MEAN CORPUSCULAR VOLUME 92.1 fl (80.0-96.0); PLATELET COUNT, AUTOMATED 159 10^3/uL (150-450); RED BLOOD COUNT 5.33 10^6/uL (4.30-6.10); WHITE BLOOD COUNT 11.8 10^3/uL (4.0-10.0)
[2019-10-07 06:43] LABS: BLOOD UREA NITROGEN 19 MG/DL (7-18); CALCIUM LEVEL 9.1 MG/DL (8.8-10.2); CARBON DIOXIDE LEVEL 28 MEQ/L (21-32); CHLORIDE LEVEL 101 MEQ/L (98-107); GLOMERULAR FILTRATION RATE > 60.0 (>42); GLUCOSE, FASTING 106 MG/DL (70-100); POTASSIUM SERUM 3.7 MEQ/L (3.5-5.1); SODIUM LEVEL 136 MEQ/L (136-145)
[2019-10-07] MEDS: SERTRALINE HCL 50 MG TAB PO SCH (09:35)
[2019-10-07] MEDS: ASPIRIN 81 MG ENTERIC TAB PO SCH (09:35)
[2019-10-07] MEDS: HEPARIN SOD (PORCINE) 5000UNITS/ML VIAL (J1644 PER 1000UNITS) SC SCH ×2 (09:35→21:31)
[2019-10-07] MEDS: LOSARTAN 50MG TABLET PO SCH (09:36)
[2019-10-07] MEDS: NYSTATIN 500,000 U/5 ML SUSP UDC SS SCH ×3 (14:46→21:31)
[2019-10-07] MEDS: cefTRIAXone SOD 2 GM in D5W MINI-BAG PLUS 50 ML IV SCH (17:45)
[2019-10-08 02:00] VITALS: BP 162/78
--- NOTE | 2019-10-08 02:06 | REPVR ---
PROCEDURE INFORMATION: Exam: US Duplex Bilateral Extracranial Arteries Exam date and time: 10/08/2019 1:46 AM Age: 74 years old Clinical indication: Syncope and collapse; Additional info: Altered mental status TECHNIQUE: Imaging protocol: Real-time Duplex ultrasound scan of the bilateral carotid and vertebral arteries combining howell scale, color Doppler and spectral waveform analysis. Bilateral exam. COMPARISON: US Duplex,carotid (complete) 01/30/2018 8:23 PM FINDINGS: Right common carotid artery: There is mild calcified atherosclerotic plaque in the right carotid bulb. No occlusion or significant stenosis. Waveforms are normal. Peak systolic velocity of 60.6 cm/s. Right internal carotid artery: Unremarkable. No occlusion or significant stenosis. Waveforms are normal. Peak systolic velocity of 93 cm/s. Right ICA/CCA ratio: 1.53. Within normal limits (< 2.0). Right external carotid artery: No significant stenosis in the origin. Peak systolic velocity of 92.8 cm/s. Right vertebral artery: Unremarkable. Antegrade flow. Peak systolic velocity of 29.1 cm/s. Left common carotid artery: There is mild calcified atherosclerotic plaque in the left carotid bulb. No occlusion or significant stenosis. Waveforms are normal. Peak systolic velocity of 65.6 cm/s. Left internal carotid artery: Unremarkable. No occlusion or significant stenosis. Waveforms are normal. Peak systolic velocity of 71 cm/s. Left ICA/CCA ratio: 1.08. Within normal limits (< 2.0). Left external carotid artery: No significant stenosis in the origin. Peak systolic velocity of 65.3 cm/s. Left vertebral artery: Unremarkable. Antegrade flow. Peak systolic velocity of 15.1 cm/s. IMPRESSION: No carotid arterial stenosis. REFERENCES: SRU CRITERIA. The degree of internal carotid artery stenosis is based on criteria defined by the Society of Radiologists in Ultrasound (SRU). Normal is no stenosis. Mild is less than 50% stenosis. Moderate is 50-69% stenosis. Severe is greater than 69% stenosis to near occlusion. Near occlusion is a markedly narrowed lumen. Total occlusion is no detectable patent lumen. Electronically signed by: Galen Schroeder On 10/08/2019 02:06:13 AM
[2019-10-08] MEDS: LEVOTHYROXINE 50MCG TABLET (0.05MG) PO SCH (05:54)
[2019-10-08 06:00] VITALS: BP 152/74
[2019-10-08 06:23] LABS: BASO % 0.1 % (0.0-1.0); EOS % 0.2 % (0.0-3.0); HEMATOCRIT 44.8 % (42.0-52.0); HEMOGLOBIN 15.6 g/dl (13.5-17.5); LYMPH # 0.7 10^3/uL (1.5-5.0); LYMPH % 8.8 % (24.0-44.0); MEAN CORPUSCULAR HEMOGLOBIN 32.4 pg (27.0-33.0); MEAN CORPUSCULAR HGB CONC 34.8 g/dl (32.0-36.5); MEAN CORPUSCULAR VOLUME 93.1 fl (80.0-96.0); MONO # 0.9 10^3/uL (0.0-0.8); MONO % 10.7 % (0.0-5.0); NEUTROPHILS # 6.6 10^3/uL (1.5-8.5); PLATELET COUNT, AUTOMATED 146 10^3/uL (150-450); RED BLOOD COUNT 4.81 10^6/uL (4.30-6.10); WHITE BLOOD COUNT 8.3 10^3/uL (4.0-10.0)
[2019-10-08 06:51] LABS: ALBUMIN 3.4 GM/DL (3.2-5.2); ALT/SGPT 51 U/L (12-78); BILIRUBIN,TOTAL 0.8 MG/DL (0.2-1.0); BLOOD UREA NITROGEN 19 MG/DL (7-18); CALCIUM LEVEL 8.6 MG/DL (8.8-10.2); CARBON DIOXIDE LEVEL 30 MEQ/L (21-32); CHLORIDE LEVEL 102 MEQ/L (98-107); CPK CREATINE PHOSPHOKINASE 650 U/L (39-308); CREATININE FOR GFR 0.92 MG/DL (0.70-1.30); GLOMERULAR FILTRATION RATE > 60.0 (>42); GLUCOSE, FASTING 106 MG/DL (70-100); MB/CK RELATIVE INDEX 0.31 (< OR =4); POTASSIUM SERUM 3.6 MEQ/L (3.5-5.1); SODIUM LEVEL 138 MEQ/L (136-145); TOTAL PROTEIN 6.5 GM/DL (6.4-8.2); TROPONIN I 0.11 NG/ML (< 0.10)
[2019-10-08] MEDS: HEPARIN SOD (PORCINE) 5000UNITS/ML VIAL (J1644 PER 1000UNITS) SC SCH ×2 (08:32→20:22)
[2019-10-08] MEDS: SERTRALINE HCL 50 MG TAB PO SCH (08:33)
[2019-10-08] MEDS: NYSTATIN 500,000 U/5 ML SUSP UDC SS SCH ×4 (08:33→20:22)
[2019-10-08] MEDS: ASPIRIN 81 MG ENTERIC TAB PO SCH (08:33)
[2019-10-08] MEDS: LOSARTAN 50MG TABLET PO SCH (08:33)
--- NOTE | 2019-10-08 09:07 | IPN ---
DATE OF PROCEDURE: 10/07/2019 This is a 74-year-old male with a history of coronary artery disease, cerebrovascular accident (CVA) with unknown residual defects, who lives alone. He was in his apartment. He says he remembered letting his dog out and that is all he remembers. Apparently, his dog could not get in and someone noticed and called the landlord who found him on the floor. He was brought to the emergency room where he was found to have an altered mental status. He was confused to where he was. He is much more alert today. He knows where he is, the hospital, the name of it and the town. He had a brain MRI on 10/05/2019 that showed no acute intracranial abnormality, effusion in the last mastoid air cells. He had a liver ultrasound. He has a history of alcohol drinking. His bilirubin has been slightly elevated and it showed a thinly septated right hepatic lobe cyst possibly seen on CT scan in April 2019. Thickened gallbladder wall. No gallstones. No sludge. Clinical correlation as needed. Cannot exclude acute cholecystitis. Thickened inflamed gallbladder was also seen on CT scan in April of 2019. No biliary obstruction. The pancreas is obscured by bowel gas. The patient states today he has no abdominal pain. He is eating well. LABORATORY STUDIES: White count had been 21.7, it is down to 11.8. Will continue Rocephin. Hemoglobin 17.5, hematocrit 49.1, platelets are excellent at 159. Electrolytes are normal. Anion gap is 7, BUN 19, creatinine 0.9, His initial CK as we are not sure how long he was on the ground in his home, was 21.37, troponin 0.64. Repeat labs of the CK and troponin has been recorded. Initial total bilirubin 1.3, direct bilirubin 0.4 and AST 93. AST on 10/05/2019 was LDH 362, total CPK 1702, troponin was 0.51 on 10/04/2019 and on 10/05/2019 0.35 with therapeutic TSH. Maximum temperature (T-max) has been 99, 99.3. Blood pressure today 140/90, pulse 94, respirations 18, temperature 97 on room air. Potassium was 3.3 on 10/06/2019, replacement was given and was improved at 3.7. We will get a carotid Doppler study to follow for stenosis. Patient continues on aspirin. History of hypothyroidism: Continues on Levothyroxine. History of hypocholesterolemia: On simvastatin. (inaudible) The patient had a speech evaluation and is on pureed foods and does well. OBJECTIVE: Patient is now alert and oriented times three. Blood pressure 124/80, pulse 96, respirations 19, Oxygen saturation 98% on room air, temperature 98.7. Pupils equal and react to light. Pharynx slightly dry. Tongue has white yeast blotches on it. Tongue is midline. Neck supple without lymphadenopathy. No thyromegaly or goiter. Chest has decreased breath sounds. No wheeze or retractions. Heart is regular without murmur or gallop. Abdomen benign. Bowel sounds positive. Genitourinary/Rectal not done. Extremities: No cyanosis, clubbing or edema. Peripheral pulses equal and palpable bilaterally. IMPRESSION AND PLAN: 1. Altered mental status: Much improved. Will get a carotid Doppler. Continue on aspirin a day. Workup CT head negative. 2. Elevated troponin and CK probably secondary to rhabdomyolysis. Unsure how long patient was on the floor. He had no chest pain. Troponins are trending down. Liver enzymes trending down. CK will get a recheck in a.m. noted. Continue aspirin and statin. 3. Elevated CK: Get a redraw in the a.m. Probably second to rhabdomyolysis as no one knows how long he laid on the floor. (in audible) . 4. History of hypothyroidism: Continue levothyroxine. 5. Hypertension: Continue losartan. Adjust as needed. The patient will need [facility]. Will get a physical therapy evaluation, occupational therapy evaluation.
[2019-10-08 10:00] VITALS: BP 142/82
--- NOTE | 2019-10-08 13:35 | IPNPDOC ---
Date Seen The patient was seen on 10/08/19. Progress Note SUBJECTIVE: Patient was seen and examined at the bedside this morning. He complains of "itching" and dryness in his mouth and was found to have thrush. We had a conversation regarding his presentation being found unresponsive at home and I mentioned to him that he will most likely need 24h care when he returns home. He agrees with this. When approaching the subject of whether or not he is open to going to a long term he initially refused, but told me he would think about it and talk to his other family. He has another sister, Erin, and a nephew, Elliot, whom he is currently in touch with. Per nursing notes, Elliot has called to inform staff that Bryan's sister Irma who used to take care of him has and the patient has no memory of this. This is evident from my conversation with him this morning. OBJECTIVE PHYSICAL EXAMINATION: GENERAL APPEARANCE: Laying in bed, appears stated age, alert, oriented to place and person HEENT: Thrush is noted, EOMI, PERRL, neck is supple with no thyromegaly or lymphadenopathy, moist mucous membranes RESPIRATORY: Lungs are clear to auscultation bilaterally with no adventitious breath sounds appreciated CARDIOVASCULAR: no JVD, RRR, no murmurs/rubs/gallops, normal S1 and S2 ABDOMEN: +BS, soft, nontender to palpation in all four quadrants, no masses/organomegaly EXTREMITIES: no clubbing, cyanosis or edema noted NEUROLOGICAL: Cranials were grossly normal. He is moving all his extremities spontaneously. Strength 5 out of 5 in upper and lower extremities. Skin: No rashes or ulcers appreciated, skin tenting is present PSYCH: mood/affect normal LABORATORY DATA, IMAGING STUDIES, MICROBIOLOGY: Please see below. ASSESSMENT AND PLAN: This is a 74 YO M with history of CAD, CVA with unk residual deficits who presented after being found down alone in his apartment found to have altered mental status. At this point, workup has been unrevealing as to the cause of the patient's AMS. Due to the lack of family support, the pa tient will most likely require placement. PROBLEMS: 1. AMS: -Somewhat resolved, although patient still not oriented to place. Unsure if this is patient's baseline. All attempts to contact family members have been unsuccessful. Will continue to attempt to contact -PFS involved, seeking placement for the patient. -Workup, including TSH, CT head unrevealing 2. Elevated troponins in setting of history of CAD -Troponins initally elevated, trended down -No EKG changes noted. Likely demand ischemia vs type II [place] -Continue ASA, statin 3. Elevated CK: -s/p fluid resuscitation 4. ?EtOH abuse: no signs of withdrawal at this time -[facility] protocol -Thiamine, multivitamin 5. Hx hypothyroidism: -Continue Levothyroxine 6. HTN: -Patient's home dose of 100mg Losartan restarted DISPOSITION: Pending placement Attending attestation: I evaluated and examined the patient in person; I discussed the care with Resident in detail and agree with the plan above. VS, I&O, 24H, Fishbone Vital Signs/I&O Vital Signs Date Time Temp Pulse Resp B/P (MAP) Pulse Ox O2 Delivery O2 Flow Rate FiO2 10/08/19 10:00 98.5 89 17 142/82 (102) 98 Room Air I&O- Last 24 Hours up to 6 AM 10/08/19 06:00 Intake Total 900 ml Output Total 625 ml Balance 275 ml Laboratory Data 24H LABS Laboratory Tests 2 10/08/19 06:06: Immature Granulocyte % (Auto) 0.2, Neutrophils (%) (Auto) 80.0H, Lymphocytes (%) (Auto) 8.8L, Monocytes (%) (Auto) 10.7H, Eosinophils (%) (Auto) 0.2, Basophils (%) (Auto) 0.1, Neutrophils # (Auto) 6.6, Lymphocytes # (Auto) 0.7L, Monocytes # (Auto) 0.9H, Eosinophils # (Auto) 0.0, Basophils # (Auto) 0.0, Nucleated Red Blood Cells % (auto) 0.0, Anion Gap 6L, Glomerular Filtration Rate > 60.0, Calcium Level 8.6L, Total Bilirubin 0.8, Aspartate Amino Transf (AST/SGOT) 76H, Alanine Aminotransferase (ALT/SGPT) 51, Alkaline Phosphatase 52, Total Creatine Kinase 650H, Creatine Kinase MB 2.0, Creatine Kinase MB Relative Index 0.31, Troponin I 0.11H, Total Protein 6.5, Albumin 3.4, Albumin/Globulin Ratio 1.1 CBC/BMP Laboratory Tests 5/25/20 06:06 Microbiology Microbiology 10/04/19 Blood Culture - Preliminary, Resulted No Growth after 72 hours. All specime... 10/04/19 Blood Culture - Preliminary, Resulted No Growth after 72 hours. All specime... GME ATTESTATION GME ATTESTATION My faculty preceptor for this patient encounter was physically present during the encounter and was fully available. All aspects of the patient interview, examination, medical decision making process, and medical care plan development were reviewed and approved by the faculty preceptor. The faculty preceptor is aware and concurs with the plan as stated in the body of this note and will attest to such by his/her cosignature. KAYLA GONZALEZ MD October 08, 2019 13:35 ANURAG JEFFERS MD October 08, 2019 22:04
[2019-10-09] MEDS: LEVOTHYROXINE 50MCG TABLET (0.05MG) PO SCH (05:33)
[2019-10-09 06:00] VITALS: BP 158/92
[2019-10-09] MEDS: NYSTATIN 500,000 U/5 ML SUSP UDC SS SCH ×4 (09:20→20:29)
[2019-10-09] MEDS: ASPIRIN 81 MG ENTERIC TAB PO SCH (09:20)
[2019-10-09] MEDS: SERTRALINE HCL 50 MG TAB PO SCH (09:20)
[2019-10-09] MEDS: HEPARIN SOD (PORCINE) 5000UNITS/ML VIAL (J1644 PER 1000UNITS) SC SCH ×2 (09:20→20:30)
[2019-10-09] MEDS: LOSARTAN 50MG TABLET PO SCH (09:21)
[2019-10-10] MEDS: LEVOTHYROXINE 50MCG TABLET (0.05MG) PO SCH (05:35)
[2019-10-10 06:00] VITALS: BP 115/76
[2019-10-10] MEDS: ASPIRIN 81 MG ENTERIC TAB PO SCH (08:20)
[2019-10-10] MEDS: SERTRALINE HCL 50 MG TAB PO SCH (08:20)
[2019-10-10] MEDS: HEPARIN SOD (PORCINE) 5000UNITS/ML VIAL (J1644 PER 1000UNITS) SC SCH ×2 (08:20→20:02)
[2019-10-10] MEDS: NYSTATIN 500,000 U/5 ML SUSP UDC SS SCH ×4 (08:20→20:02)
[2019-10-10] MEDS: LOSARTAN 50MG TABLET PO SCH (08:22)
[2019-10-11] MEDS: LEVOTHYROXINE 50MCG TABLET (0.05MG) PO SCH (05:47)
[2019-10-11 06:00] VITALS: BP 140/76
[2019-10-11] MEDS: HEPARIN SOD (PORCINE) 5000UNITS/ML VIAL (J1644 PER 1000UNITS) SC SCH ×2 (09:52→20:10)
[2019-10-11] MEDS: NYSTATIN 500,000 U/5 ML SUSP UDC SS SCH ×4 (09:52→20:09)
[2019-10-11] MEDS: SERTRALINE HCL 50 MG TAB PO SCH (09:52)
[2019-10-11] MEDS: ASPIRIN 81 MG ENTERIC TAB PO SCH (09:52)
[2019-10-11] MEDS: LOSARTAN 50MG TABLET PO SCH (09:53)
[2019-10-12] MEDS: LEVOTHYROXINE 50MCG TABLET (0.05MG) PO SCH (05:45)
[2019-10-12 06:00] VITALS: BP 158/80
[2019-10-12] MEDS: HEPARIN SOD (PORCINE) 5000UNITS/ML VIAL (J1644 PER 1000UNITS) SC SCH ×2 (10:08→20:13)
[2019-10-12] MEDS: SERTRALINE HCL 50 MG TAB PO SCH (10:08)
[2019-10-12] MEDS: NYSTATIN 500,000 U/5 ML SUSP UDC SS SCH ×4 (10:08→20:12)
[2019-10-12] MEDS: ASPIRIN 81 MG ENTERIC TAB PO SCH (10:08)
[2019-10-12] MEDS: LOSARTAN 50MG TABLET PO SCH (10:09)
[2019-10-13] MEDS: LEVOTHYROXINE 50MCG TABLET (0.05MG) PO SCH (05:46)
[2019-10-13] MEDS: ACETAMINOPHEN TAB 650MG DOSE (2X325MG) PO PRN (05:48)
[2019-10-13 06:00] VITALS: BP 140/73
[2019-10-13] MEDS: NYSTATIN 500,000 U/5 ML SUSP UDC SS SCH (09:15)
[2019-10-13] MEDS: ASPIRIN 81 MG ENTERIC TAB PO SCH (09:15)
[2019-10-13] MEDS: SERTRALINE HCL 50 MG TAB PO SCH (09:15)
[2019-10-13 09:17] VITALS: BP 118/61
[2019-10-13] MEDS: LOSARTAN 50MG TABLET PO SCH (09:17)
[2019-10-13] MEDS: HEPARIN SOD (PORCINE) 5000UNITS/ML VIAL (J1644 PER 1000UNITS) SC SCH (09:17)
--- NOTE | 2019-10-13 14:04 | DS.PDOC ---
Discharge Summary General Date of Admission October 04, 2019 at 14:21 Date of Discharge October 13, 2019 Primary Care Physician: PAPO NUNEZ PA-C Attending Physician: ANURAG JEFFERS MD Discharge Summary PROCEDURES PERFORMED DURING STAY: [None]. ADMITTING DIAGNOSES: 1. AMS DISCHARGE DIAGNOSES: 1. AMS likely 2/2 EtOH use COMPLICATIONS/CHIEF COMPLAINT: Altered Mental Status. HISTORY OF PRESENT ILLNESS: History obtained from ER staff and paramedics, as patient not participating with interview. Bryan Mathews is a 74 YO M with history of throat cancer, CVA and CAD (details unknown) who was brought to ED by EMS after being found down at home. Paramedics report the patient's neighbors heard water running from his apartment this morning at 0300. The water was still running around 0700 when the landlord was called. The patient was found laying on the floor of his living room unre sponsive. There did not seem to be any evidence of trauma or any open bottles near the patient. His vitals were stable. He was moving all extremities but not responding to verbal/painful stimuli and not answering any questions. He continued to be altered in the ED. His workup thus far reveals leukocytosis, hypokalemia, rhabdomyolysis and an elevated troponin. Per recent primary care records, the patient has been undergoing workup for bradycardia (followed by Dr. Russell of Cardiology) and his Metoprolol was recently d/c'd. No other collateral information was able to be obtained. HOSPITAL COURSE: The patient was admitted for further workup of acute AMS and unresponsiveness. On presentation, he was not answering any questions appropriately. On Hospital day #2 it appeared his mental status improved but he remained oriented only to person and time, not to place. Staff was able to get in touch with his family, who reported that the patient had memory impairment surrounding the of his sister who lived close to him and used to help take care of him. In addition, a speech evaluation was performed and therapists recommended mechanical soft diet with observation, sitting up during meals. In regards to this, it was determined that the patient would need 24h care. His neice agreed to supply this care and he was discharged to her home on October 13, 2019 in stable state. DISCHARGE MEDICATIONS: Please see below. ALLERGIES: Please see below. PHYSICAL EXAMINATION ON DISCHARGE: VITAL SIGNS: Please see below. GENERAL APPEARANCE: Laying in bed, appears stated age, alert, oriented to place and person HEENT: Thrush is noted, EOMI, PERRL, neck is supple with no thyromegaly or lymphadenopathy, moist mucous membranes RESPIRATORY: Lungs are clear to auscultation bilaterally with no adventitious breath sounds appreciated CARDIOVASCULAR: no JVD, RRR, no murmurs/rubs/gallops, normal S1 and S2 ABDOMEN: +BS, soft, nontender to palpation in all four quadrants, no masses/organomegaly EXTREMITIES: no clubbing, cyanosis or edema noted NEUROLOGICAL: Cranials were grossly normal. He is moving all his extremities spontaneously. Strength 5 out of 5 in upper and lower extremities. Skin: No rashes or ulcers appreciated, skin tenting is present PSYCH: mood/affect normal LABORATORY DATA: Please see below. IMAGING: CT BRAIN WITHOUT CONTRAST: CT brain performed without IV contrast. Coronal reconstruction images are performed. Comparison: 02/21/2019 There is moderate atrophy again noted. There is no midline shift or mass effect. Old lacunar infarct is again seen in the left cerebellum. There is no acute hemorrhage. There is no extra-axial fluid collection. There are vascular calcifications of the carotid siphons. IMPRESSION: No change since the prior study 02/21/2019. There is atrophy. There is no midline shift or mass effect. There is an old lacunar infarct in the left cerebellum. There is no acute intracranial hemorrhage. PROGNOSIS: fair ACTIVITY: [As tolerated]. DIET: mechanical soft diet DISCHARGE PLAN: home DISPOSITION: 01 Home, Self-Care. DISCHARGE INSTRUCTIONS: 1. follow up with PCP within 7 days ITEMS TO FOLLOWUP ON ON OUTPATIENT: None DISCHARGE CONDITION: [Stable]. TIME SPENT ON DISCHARGE: Greater than 35 minutes. Vital Signs/I&Os Vital Signs Date Time Temp Pulse Resp B/P (MAP) Pulse Ox O2 Delivery O2 Flow Rate FiO2 10/13/19 09:17 118/61 10/13/19 06:00 98.2 66 17 99 Room Air I&O- Last 24 Hours up to 6 AM 10/13/19 06:00 Intake Total 2635 ml Balance 2635 ml Microbiology Microbiology 10/04/19 Blood Culture - Final, Complete NO GROWTH AFTER 5 DAYS 10/04/19 Blood Culture - Final, Complete NO GROWTH AFTER 5 DAYS Discharge Medications Scheduled Aspirin (Aspir 81) 81 Mg Tablet.dr, 81 MG PO DAILY, (Reported) Cholecalciferol (Vitamin D3) (Vitamin D3) 1,000 Unit Tablet, 1,000 UNITS PO DAILY, (Reported) Levothyroxine Sodium (Levothyroxine Sodium) 50 Mcg Tab, 50 MCG PO DAILY, (Reported) Losartan Potassium (Losartan Potassium) 50 Mg Tablet, 50 MG PO DAILY Sertraline Hcl (Sertraline HCl) 50 Mg Tablet, 50 MG PO DAILY, (Reported) Simvastatin (Simvastatin) 40 Mg Tab, 40 MG PO QHS, (Reported) Allergies Coded Allergies: ENVIROMENTAL (Verified Allergy, Unknown, 06/01/19) GME ATTESTATION GME ATTESTATION My faculty preceptor for this patient encounter was physically present during the encounter and was fully available. All aspects of the patient interview, examination, medical decision making process, and medical care plan development were reviewed and approved by the faculty preceptor. The faculty preceptor is aware and concurs with the plan as stated in the body of this note and will attest to such by his/her cosignature. KAYLA GONZALEZ MD October 13, 2019 14:03
== END 2019-10-13 11:03 | disposition home or self-care (01) | DRG 57 ==
LOC: EDBD 10:29 → M ED 10:29 → M ED INP 14:21 → ENRESERV 14:32 → M MSPAV 15:23
PROVIDERS: ADMIT Internal Medicine; ATTEND Internal Medicine
DX: G31.2 Degeneration of nervous system due to alcohol (principal); M62.82 Rhabdomyolysis; B37.0 Candidal stomatitis; I10 Essential (primary) hypertension; I25.10 Atherosclerotic heart disease of native coronary artery without angina pectoris; Z86.73 Personal history of transient ischemic attack (TIA), and cerebral infarction without residual deficits; Z85.818 Personal history of malignant neoplasm of other sites of lip, oral cavity, and pharynx; Z79.82 Long term (current) use of aspirin; Z79.899 Other long term (current) drug therapy; E87.6 Hypokalemia; D72.829 Elevated white blood cell count, unspecified; K21.9 Gastro-esophageal reflux disease without esophagitis; E78.5 Hyperlipidemia, unspecified; K57.30 Diverticulosis of large intestine without perforation or abscess without bleeding; E03.9 Hypothyroidism, unspecified; F39 Unspecified mood [affective] disorder

== ENCOUNTER → 2019-11-13 | Outpatient (REF) | payer MEDICARE ==
[~2019-11-13] MED LIST changes: +PATIENT COMMENT; +VITAD1000T PO
[2019-11-13 11:21] LABS: BASO # 0.1 10^3/uL (0.0-0.2); BASO % 0.9 % (0.0-1.0); EOS # 0.5 10^3/uL (0.0-0.5); EOS % 6.5 % (0.0-3.0); HEMATOCRIT 42.2 % (42.0-52.0); HEMOGLOBIN 13.9 g/dl (13.5-17.5); LYMPH # 0.8 10^3/uL (1.5-5.0); LYMPH % 11.1 % (24.0-44.0); MEAN CORPUSCULAR HGB CONC 32.9 g/dl (32.0-36.5); MEAN CORPUSCULAR VOLUME 100.2 fl (80.0-96.0); MONO # 0.6 10^3/uL (0.0-0.8); MONO % 8.1 % (0.0-5.0); NEUTROPHILS # 5.5 10^3/uL (1.5-8.5); PLATELET COUNT, AUTOMATED 170 10^3/uL (150-450); RED BLOOD COUNT 4.21 10^6/uL (4.30-6.10); WHITE BLOOD COUNT 7.5 10^3/uL (4.0-10.0)
[2019-11-13 11:34] LABS: ALBUMIN 3.8 GM/DL (3.2-5.2); ALT/SGPT 28 U/L (12-78); BILIRUBIN,TOTAL 0.6 MG/DL (0.2-1.0); BLOOD UREA NITROGEN 15 MG/DL (7-18); CALCIUM LEVEL 8.4 MG/DL (8.8-10.2); CARBON DIOXIDE LEVEL 22 MEQ/L (21-32); CHLORIDE LEVEL 108 MEQ/L (98-107); CREATININE FOR GFR 1.03 MG/DL (0.70-1.30); FREE T4 1.13 NG/DL (0.76-1.46); GLOMERULAR FILTRATION RATE > 60.0 (>42); GLUCOSE, FASTING 83 MG/DL (70-100); POTASSIUM SERUM 5.1 MEQ/L (3.5-5.1); SODIUM LEVEL 138 MEQ/L (136-145); TOTAL PROTEIN 6.8 GM/DL (6.4-8.2)
== END ==
LOC: M SFHCCLAY 08:56
PROVIDERS: ATTEND Physician Assistant
DX: D69.6 Thrombocytopenia, unspecified (principal); E03.9 Hypothyroidism, unspecified; E55.9 Vitamin D deficiency, unspecified

== ENCOUNTER → 2019-12-04 | Outpatient (CLI) | payer MEDICARE ==
[~2019-12-04] MED LIST changes: -ASPI81TA85 PO; +ASPI81TA86 PO; +D31000TA2 PO; +PANT40TA29 PO; -PANT40TA3 PO; -VITAD1000T PO
== END ==
LOC: M LABSMTC 12:19
PROVIDERS: ATTEND Pediatrics
DX: Z11.59 Encounter for screening for other viral diseases (principal); Z20.828 Contact with and (suspected) exposure to other viral communicable diseases

== ENCOUNTER → 2020-03-06 | Outpatient (REF) | payer MEDICARE ==
[2020-03-06 16:25] LABS: APPEARANCE, URINE CLEAR (CLEAR); BACTERIA, URINE AUTO NEGATIVE (NEGATIVE); BILIRUBIN, URINE AUTO NEGATIVE (NEGATIVE); BLOOD, URINE BLOOD NEGATIVE (NEGATIVE); COLOR, URINE STRAW (YELLOW); GLUCOSE, URINE (UA) AUTO NEGATIVE (NEGATIVE); KETONE, URINE AUTO NEGATIVE (NEGATIVE); LEUKOCYTE ESTERASE, URINE AUTO NEGATIVE (NEGATIVE); NITRITE, URINE AUTO NEGATIVE (NEGATIVE); PROTEIN, URINE AUTO NEGATIVE (NEGATIVE); RBC, URINE AUTO 0 /HPF (0-3); SPECIFIC GRAVITY URINE AUTO 1.005 (1.002-1.035); SQUAMOUS EPITHELIAL CELL UR AU 0 /HPF (0-6); UROBILINOGEN, URINE AUTO 0.2 mg/dL (0.0-2.0); WBC, URINE AUTO 0 /HPF (0-3)
[2020-03-06 16:30] LABS: BASO # 0.1 10^3/uL (0.0-0.2); BASO % 0.8 % (0.0-1.0); EOS # 0.3 10^3/uL (0.0-0.5); EOS % 5.6 % (0.0-3.0); HEMOGLOBIN 13.1 g/dl (13.5-17.5); LYMPH # 0.8 10^3/uL (1.5-5.0); LYMPH % 13.9 % (24.0-44.0); MEAN CORPUSCULAR HEMOGLOBIN 31.6 pg (27.0-33.0); MEAN CORPUSCULAR HGB CONC 33.6 g/dl (32.0-36.5); MONO # 0.6 10^3/uL (0.0-0.8); MONO % 10.3 % (0.0-5.0); NEUTROPHILS # 4.1 10^3/uL (1.5-8.5); NEUTROPHILS % 69.2 % (36.0-66.0); PLATELET COUNT, AUTOMATED 147 10^3/uL (150-450); RED BLOOD COUNT 4.15 10^6/uL (4.30-6.10); WHITE BLOOD COUNT 5.9 10^3/uL (4.0-10.0)
[2020-03-06 17:01] LABS: ALBUMIN 3.8 GM/DL (3.2-5.2); ALT/SGPT 23 U/L (12-78); BILIRUBIN,TOTAL 0.6 MG/DL (0.2-1.0); BLOOD UREA NITROGEN 10 MG/DL (7-18); CALCIUM LEVEL 8.8 MG/DL (8.8-10.2); CARBON DIOXIDE LEVEL 30 MEQ/L (21-32); CHLORIDE LEVEL 101 MEQ/L (98-107); CREATININE FOR GFR 1.13 MG/DL (0.70-1.30); GLOMERULAR FILTRATION RATE > 60.0 (>42); GLUCOSE, FASTING 76 MG/DL (70-100); POTASSIUM SERUM 4.5 MEQ/L (3.5-5.1); SODIUM LEVEL 137 MEQ/L (136-145); TOTAL PROTEIN 6.8 GM/DL (6.4-8.2)
[2020-03-06 17:05] LABS: HEMOGLOBIN A1c 5.2 %
== END ==
LOC: M SFHCCLAY 11:55
PROVIDERS: ATTEND Physician Assistant
DX: S91.112D Laceration without foreign body of left great toe without damage to nail, subsequent encounter (principal); E86.0 Dehydration; R35.0 Frequency of micturition; Z79.899 Other long term (current) drug therapy
CPT/HCPCS: 80053; 81001; 83036; 84439; 84443; 85025; 87086; G0103

== ENCOUNTER → 2020-03-06 | Outpatient (CLI) | payer MEDICARE ==
--- NOTE | 2020-03-06 12:47 | REP ---
INDICATION: LACERATION OF GREAT TOE OF LEFT FOOT,FOREIGN BODY PRESENCE COMPARISON: None. TECHNIQUE: AP, lateral, bilateral oblique views left foot. FINDINGS: Age-related degenerative changes are appreciated. No evidence for acute fracture or dislocation. There is a small 2 mm foreign body underlying the 1st toe distal phalanx. IMPRESSION: No acute fracture or dislocation.. Very small foreign body underlying the distal phalanx 1st toe. <Electronically signed by Alonzo Chiu > 03/06/20 [id number]
== END ==
LOC: M CLY 12:07
PROVIDERS: ATTEND Physician Assistant
DX: S91.112D Laceration without foreign body of left great toe without damage to nail, subsequent encounter (principal); E86.0 Dehydration; R35.0 Frequency of micturition; Z79.899 Other long term (current) drug therapy
CPT/HCPCS: 73630; 80053; 81001; 83036; 84439; 84443; 85025; 87086; G0103

== ENCOUNTER 2020-05-04 07:35 | Inpatient (IN) | payer MEDICAID, MEDICARE ==
[2020-05-04] VITALS (26 sets, daily range): BP systolic 80–206; BP diastolic 49–88; O2SAT 100
[~2020-05-04] VITALS: Ht 170.2 cm; Wt 58.7 kg
[2020-05-04] MEDS ORDERED: LORazepam 2 MG/ML VIAL As Ordered ONE ×2 (07:48→08:27)
[2020-05-04 07:57] LABS: VENOUS BASE EXCESS -15.1 (-2.0-2.0); VENOUS HCO3 16.8 MEQ/L (23.0-27.0); VENOUS O2 SATURATION 97.4 % (60.0-80.0); VENOUS PARTIAL PRESSURE CO2 66.1 mmHg (38.0-50.0); VENOUS PARTIAL PRESSURE O2 131.6 mmHg (30.0-50.0); VENOUS PH 7.024 UNITS (7.330-7.430); VENOUS STANDARD HCO3 13.3 MEQ/L; VENOUS TOTAL CO2 18.9 MEQ/L (24.0-28.0)
[2020-05-04] MEDS ORDERED: levETIRAcetam INJection 1,000 MG in D5W 100 ML IV ONE (08:00)
[2020-05-04 08:01] LABS: BASO % 0.4 % (0.0-1.0); EOS # 0.1 10^3/uL (0.0-0.5); EOS % 0.9 % (0.0-3.0); HEMATOCRIT 46.5 % (42.0-52.0); HEMOGLOBIN 15.1 g/dl (13.5-17.5); LYMPH # 1.3 10^3/uL (1.5-5.0); LYMPH % 11.3 % (24.0-44.0); MEAN CORPUSCULAR HEMOGLOBIN 30.8 pg (27.0-33.0); MEAN CORPUSCULAR HGB CONC 32.5 g/dl (32.0-36.5); MEAN CORPUSCULAR VOLUME 94.9 fl (80.0-96.0); MONO # 0.6 10^3/uL (0.0-0.8); MONO % 5.6 % (0.0-5.0); NEUTROPHILS # 9.2 10^3/uL (1.5-8.5); NEUTROPHILS % 81.4 % (36.0-66.0); PLATELET COUNT, AUTOMATED 149 10^3/uL (150-450); WHITE BLOOD COUNT 11.3 10^3/uL (4.0-10.0)
--- NOTE | 2020-05-04 08:14 | REP ---
INDICATION: Altered Mental Status COMPARISON: 10/04/2019 TECHNIQUE: Axial noncontrast images from the skull base to the thoracic inlet with coronal reformations. This CT examination was performed using the following dose reduction techniques: Automated exposure control, adjustment of mA and/or kv according to the patient's size, and use of iterative reconstruction technique. FINDINGS: Age-related atrophy and microvascular ischemic changes are appreciated. The ventricles and sulci are symmetric. Rascon-white differentiation is maintained. There is no evidence for acute intracranial hemorrhage, mass/mass effect, pathology or infarction. No extra-axial fluid collection. Calvarium is intact. Curvilinear calcification versus foreign body overlying the left temporal bone remains stable. Paranasal sinuses and mastoid air cells are clear. IMPRESSION: Age related atrophy and microvascular ischemic changes. No acute intracranial hemorrhage, infarction, or mass/mass effect. <Electronically signed by Alonzo Chiu > 05/04/20 0846
--- NOTE | 2020-05-04 08:17 | REP ---
INDICATION: Altered Mental Status COMPARISON: 10/04/2019 TECHNIQUE: Axial noncontrast images from the skull base to the thoracic inlet with coronal and sagittal re-formations This CT examination was performed using the following dose reduction techniques: Automated exposure control, adjustment of mA and/or kv according to the patient's size, and use of iterative reconstruction technique. FINDINGS: Advanced multilevel degenerative changes include chronic grade 1 anterolisthesis at the C4-5 and C7-T1 levels as well as diffuse endplate sclerosis, disc space narrowing, anterior/posterior osteophytosis and facet arthropathy. Findings are relatively stable compared to 10/04/2019. No acute fracture/compression injury or subluxation spinal canal is grossly patent. Paravertebral soft tissues are unremarkable. IMPRESSION: Advanced multilevel degenerative spondylosis similar to prior examination. No acute fracture/compression injury or subluxation. <Electronically signed by Alonzo Chiu > 05/04/20 [id number]
--- NOTE | 2020-05-04 08:19 | REP ---
INDICATION: altered mental status, found down COMPARISON: 04/29/2019 TECHNIQUE: Axial noncontrast images from the thoracic inlet to the upper abdomen with coronal and sagittal reformations. This CT examination was performed using the following dose reduction techniques: Automated exposure control, adjustment of mA and/or kv according to the patient's size, and use of iterative reconstruction technique. FINDINGS: Lung amor are relatively well aerated and demonstrate age-related interstitial changes along with minimal right basilar atelectasis. No consolidation. No effusion. No pneumothorax. Tracheobronchial tree is patent. No adenopathy. Atherosclerotic changes to the thoracic aorta and coronary arteries noted without aortic aneurysm or cardiomegaly. No pericardial effusion. Surrounding musculoskeletal structures demonstrate age-related degenerative changes without acute osseous abnormality. IMPRESSION: Chronic changes with trace right basilar atelectasis. <Electronically signed by Alonzo Chiu > 05/04/20 0837
--- NOTE | 2020-05-04 08:23 | REP ---
INDICATION: altered mental status, found down COMPARISON: 04/29/2019 TECHNIQUE: Axial noncontrast images from the lung bases to the pubic symphysis with coronal and sagittal reformations. This CT examination was performed using the following dose reduction techniques: Automated exposure control, adjustment of mA and/or kv according to the patient's size, and use of iterative reconstruction technique. FINDINGS: Lung bases demonstrate trace right basilar atelectasis. Liver includes stable 1.5 cm cyst in the medial left lobe. Spleen, pancreas, gallbladder, bilateral adrenal glands and kidneys are normal for noncontrast evaluation. The enteric system is unremarkable and without obstruction or acute inflammatory process. Normal terminal ileum and appendix identified in the right lower quadrant. Colonic and primarily sigmoid diverticulosis noted without acute diverticulitis. Pelvis demonstrates normal bladder and moderate prostatomegaly along with 2.5 cm fat containing left inguinal hernia. No ascites. No free air. No adenopathy. No focal inflammatory stranding. Atherosclerotic changes to the aorta and vasculature noted without aneurysm. Musculoskeletal structures are intact and without acute osseous abnormality. IMPRESSION: 1. No acute abdominopelvic pathology appreciated. 2. Stable nonacute findings include hepatic cyst, left inguinal hernia, and diverticulosis. <Electronically signed by Alonzo Chiu > 05/04/20 0886
[2020-05-04] MEDS ORDERED: ETOMIDATE INJ 20MG/10ML VIAL IV ONE (08:30)
[2020-05-04] MEDS ORDERED: MIDAZOLAM HCL 50 MG in D5W 40 ML IV SCH (08:30)
[2020-05-04] MEDS ORDERED: SUCCINYLCHOLINE INJ 200 MG/10 ML VIAL (J0330) IV ONE (08:30)
[2020-05-04 08:35] LABS: ACETAMINOPHEN LEVEL < 2.0 UG/ML (10.0-30.0); ALBUMIN 4.4 GM/DL (3.2-5.2); ALT/SGPT 21 U/L (12-78); BILIRUBIN,DIRECT 0.3 MG/DL (0.0-0.2); BILIRUBIN,TOTAL 0.7 MG/DL (0.2-1.0); BLOOD UREA NITROGEN 9 MG/DL (7-18); CARBON DIOXIDE LEVEL 22 MEQ/L (21-32); CHLORIDE LEVEL 101 MEQ/L (98-107); CK-MB VALUE MASS 2.7 NG/ML (<3.6); CPK CREATINE PHOSPHOKINASE 101 U/L (39-308); CREATININE FOR GFR 1.35 MG/DL (0.70-1.30); ETHYL ALCOHOL (ETHANOL) 0.004 % (0.000-0.010); GLOMERULAR FILTRATION RATE 55.2 (>42); GLUCOSE, FASTING 135 MG/DL (70-100); MB/CK RELATIVE INDEX 2.67 (< OR =4); POTASSIUM SERUM 4.8 MEQ/L (3.5-5.1); SALICYLATE LEVEL < 1.7 MG/DL (5.0-30.0); SODIUM LEVEL 136 MEQ/L (136-145); TOTAL PROTEIN 7.7 GM/DL (6.4-8.2); TROPONIN I < 0.02 NG/ML (< 0.10)
[2020-05-04] MEDS ORDERED: LORazepam 2 MG/ML VIAL IV STA ×2 (08:39)
[2020-05-04] MEDS ORDERED: TAMS1CAP17 PO (08:40)
[2020-05-04] MEDS ORDERED: OMEP-218 PO (08:40)
[2020-05-04] MEDS ORDERED: MIDAZOLAM 5MG/ML 1ML VIAL (J2250 PER 1MG) As Ordered ONE (08:45)
[2020-05-04] MEDS ORDERED: NS 2,000 ML in IV 1 EA IV ONE (08:45)
[2020-05-04] MEDS ORDERED: CEFEPIME HCL 2 GM in D5W MINI-BAG PLUS 50 ML IV ONE (08:45)
[2020-05-04] MEDS ORDERED: LOSA50TA88 PO (08:46)
[2020-05-04] MEDS ORDERED: ASPI-161 PO (08:46)
[2020-05-04] MEDS ORDERED: propofoL 200 MG/20 ML VIAL IV ONE ×2 (08:46→08:51)
--- NOTE | 2020-05-04 09:02 | REP ---
INDICATION: Altered Mental Status COMPARISON: 10/04/2019 TECHNIQUE: Portable AP view of the chest FINDINGS: Endotracheal tube 2.5 cm above the kassi. The mediastinum and cardiac silhouette are stable and within normal limits for portable technique. The lung amor are clear without acute consolidation, effusion, or pneumothorax. Skeletal structures are intact. IMPRESSION: No acute cardiopulmonary process appreciated. <Electronically signed by Alonzo Chiu > 05/04/20 0849
[2020-05-04] MEDS ORDERED: [UNRECOGNIZED DRUG - REMARK] (09:05)
[2020-05-04 09:47] LABS: OSMOLALITY SERUM 293 MOSM/KG (280-301)
[2020-05-04 09:50] LABS: AMPHETAMINES LEVEL URINE NEGATIVE (NEGATIVE); BARBITURATES URINE NEGATIVE (NEGATIVE); BENZODIAZEPINES URINE NEGATIVE (NEGATIVE); CANNABINOIDS URINE POSITIVE (NEGATIVE); COCAINE METABOLITE URINE NEGATIVE (NEGATIVE); METHADONE URINE NEGATIVE (NEGATIVE); OPIATES URINE NEGATIVE (NEGATIVE); PHENCYCLIDINE URINE NEGATIVE (NEGATIVE)
[2020-05-04 09:50] LABS: RSV AMPLIFICATION NEGATIVE (NEGATIVE)
[2020-05-04] MEDS ORDERED: PROPOFOL 1,000 MG/100 ML VIAL As Ordered ONE (10:09)
[2020-05-04] MEDS ORDERED: MORPHINE 2 MG/ML 1ML VIAL (J2270) IV PRN (10:30)
[2020-05-04] MEDS ORDERED: MIDAZOLAM INJ 2MG/2ML VIAL (J2250 PER 1MG) IV PRN (10:30)
[2020-05-04] MEDS: propofoL 1,000 MG in IV 1 EA IV SCH ×3 (10:55→20:52)
--- NOTE | 2020-05-04 11:55 | HPE ---
HISTORY AND PHYSICAL DATE OF ADMISSION: 05/04/2020 HISTORY OF PRESENT ILLNESS: Apparently, the patient was found by his photographer still to have blood in his mouth and had stool on himself with altered mental status; therefore suspicious of seizure activity. Were called the ambulance, brought to the emergency room with altered mental status, had a witnessed tonic clonic seizure in the emergency room and was intubated. He has a known history of alcohol abuse. His alcohol level is unremarkable. He also has a history of cerebrovascular accident (CVA), head and neck cancer and prior history of altered mental status. Unfortunately, there is no one to provide me any history. All the history that I have is obtained from his chart in September 2019 when he was admitted with altered mental status found to be secondary to alcohol withdrawal. According to his clinic chart that the emergency room physician was able to review, he had denied recent drinking. As far as his workup in the emergency room, head CT was negative. CT of the neck was unchanged showing multiple levels of spondylolysis. There is no evidence of trauma other than the tongue laceration. He was given Versed, Keppra; and on my arrival to the emergency room, the patient was coughing and having purposeful movements without evidence of seizure activity. PHYSICAL EXAMINATION: Temperature is 98.5, pulse is 89, respiratory rate is 18, blood pressure is elevated at 181/83. This is prior to propofol administration. Oxygen saturation is 100% on 0.50 FiO2. General: Responds to stimuli, but is not interactive. Coughing and overbreathing the vent. HEENT: Sclerae clear and anicteric. Pupils equal and reactive to light. Mucus membranes are moist without lesions. Tongue: Abrasion is present. Neck: Supple. No tracheal deviation or mass. Lymphs: No cervical, supraclavicular or axillary adenopathy. Cardiac: Regular, S1, S2 without audible murmur, rub or gallop. No elevated jugular venous pressure (JVP). Pulmonary: Clear to auscultation without rales, rhonchi or wheezes. No dullness to percussion. Abdomen: Soft, nontender, non-distended with hypoactive bowel sounds. Extremities: No cyanosis, clubbing or edema. Skin: Pale without rashes, jaundice or bruising. Neurologic: There is no evidence of myoclonus. No seizure activity currently. When putting the arms through full range of motion, there is no rigidity. The patient is coughing and overbreathing the vent. LABORATORY EVALUATION: Shows white blood cell count of 11.3, hemoglobin 15.1, platelet count of 149. Sodium is 136, potassium 4.8, chloride 101, bicarbonate of 22, BUN of 9, creatinine of 1.35 with a glucose of 135. Lactate is elevated at 12.9 and ammonia of 91. However labs were obtained around the time of seizing. Imaging as mentioned above. Chest CT was also obtained, which does not show any mass, infiltrate or infection. Electrocardiogram (EKG) shows a normal sinus rhythm with occasional ectopy. No ST abnormalities. Arterial blood gas shows a pH of 7.18, pCO2 of 55 and a pAO2 of 337, repeated pH of 7.31, pCO2 of 46, pAO2 of 103. IMPRESSION: 1. Respiratory failure with hypercapnia, likely related to altered mental status and seizure activity. The patient will remain intubated on sedation with neurological checks. Seizure precautions will be ordered. 2. Seizure, tonic clonic, unclear etiology, possibly from alcohol withdrawal. However, history is limited. He has been loaded with Keppra. I have given him Versed and propofol. 3. Lactic acidosis, more likely from recent seizure activity than sepsis. The patient is actually hypertensive. Will continue to monitor for signs and symptoms of infection. At this point in time, no antibiotics. 4. Hypertension. Will address this with propofol. Will add as needed hydrazine. 5. Gastrointestinal prophylaxis with Protonix. 6. Deep venous thrombosis (DVT) prophylaxis with Lovenox. The patient's prognosis is guarded. Will continue to monitor for ability to extubate and for continued seizure activity.
[2020-05-04] MEDS: hydrALAZINE 20MG/ML 1ML VIAL (J0360 PER 20MG) IV SCH ×3 (12:09→23:00)
--- NOTE | 2020-05-04 12:28 | ECGEPIP ---
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
[2020-05-04 14:07] LABS: ABG BASE EXCESS -1.8 (-2.0-2.0); ABG HCO3 18.6 MEQ/L (22.0-26.0); ABG O2 SATURATION 99.2 % (95.0-99.0); ABG PARTIAL PRESSURE CO2 21.9 mmHg (35.0-45.0); ABG PARTIAL PRESSURE O2 142.1 mmHg (75.0-100.0); ABG TOTAL CO2 19.2 MEQ/L (23.0-31.0); ABG pH (ARTERIAL) 7.546 UNITS (7.350-7.450)
[2020-05-04] MEDS: ALBUTEROL SULFATE 2.5 MG/0.5 ML INH NEB SOLN NEB SCH ×4 (14:34→23:21)
[2020-05-04] MEDS: CHLORHEXIDINE GLUCONATE 0.12 % 15ML UDC (PERIDEX ORAL RINSE) MT SCH (20:51)
[2020-05-04] MEDS: levETIRAcetam INJection 500 MG in D5W MINI-BAG PLUS 100 ML IV SCH (22:13)
[2020-05-05] VITALS (41 sets, daily range): BP systolic 90–208; BP diastolic 54–91; O2SAT 100
[2020-05-05] MEDS: ALBUTEROL SULFATE 2.5 MG/0.5 ML INH NEB SOLN NEB SCH ×6 (03:22→23:10)
[2020-05-05] MEDS: propofoL 1,000 MG in IV 1 EA IV SCH ×2 (03:57→08:03)
[2020-05-05 04:40] LABS: HEMATOCRIT 40.2 % (42.0-52.0); HEMOGLOBIN 13.9 g/dl (13.5-17.5); MEAN CORPUSCULAR HGB CONC 34.6 g/dl (32.0-36.5); MEAN CORPUSCULAR VOLUME 89.7 fl (80.0-96.0); PLATELET COUNT, AUTOMATED 140 10^3/uL (150-450); RED BLOOD COUNT 4.48 10^6/uL (4.30-6.10); WHITE BLOOD COUNT 11.9 10^3/uL (4.0-10.0)
[2020-05-05] MEDS: hydrALAZINE 20MG/ML 1ML VIAL (J0360 PER 20MG) IV SCH ×2 (05:00→11:00)
[2020-05-05 05:16] LABS: ALBUMIN 3.7 GM/DL (3.2-5.2); ALT/SGPT 17 U/L (12-78); BILIRUBIN,TOTAL 1.2 MG/DL (0.2-1.0); BLOOD UREA NITROGEN 8 MG/DL (7-18); CALCIUM LEVEL 8.8 MG/DL (8.8-10.2); CARBON DIOXIDE LEVEL 21 MEQ/L (21-32); CHLORIDE LEVEL 102 MEQ/L (98-107); CREATININE FOR GFR 1.07 MG/DL (0.70-1.30); GLOMERULAR FILTRATION RATE > 60.0 (>42); GLUCOSE, FASTING 96 MG/DL (70-100); POTASSIUM SERUM 3.2 MEQ/L (3.5-5.1); SODIUM LEVEL 134 MEQ/L (136-145); TOTAL PROTEIN 6.5 GM/DL (6.4-8.2)
[2020-05-05 05:44] LABS: ABG BASE EXCESS -1.7 (-2.0-2.0); ABG HCO3 18.9 MEQ/L (22.0-26.0); ABG O2 SATURATION 99.4 % (95.0-99.0); ABG PARTIAL PRESSURE CO2 22.5 mmHg (35.0-45.0); ABG PARTIAL PRESSURE O2 177.4 mmHg (75.0-100.0); ABG STANDARD HCO3 23.1 MEQ/L (22.0-26.0); ABG TOTAL CO2 19.5 MEQ/L (23.0-31.0); ABG pH (ARTERIAL) 7.541 UNITS (7.350-7.450)
[2020-05-05] MEDS: PANTOPRAZOLE 40MG VIAL (C9113 PER 1) IV SCH (08:04)
[2020-05-05] MEDS: levETIRAcetam INJection 500 MG in D5W MINI-BAG PLUS 100 ML IV SCH (08:04)
[2020-05-05] MEDS: CHLORHEXIDINE GLUCONATE 0.12 % 15ML UDC (PERIDEX ORAL RINSE) MT SCH (08:05)
[2020-05-05] MEDS ORDERED: OXAZEPAM 10 MG CAP PO PRN (09:00)
--- NOTE | 2020-05-05 09:37 | REP ---
INDICATION: RESPIRATORY FAILURE COMPARISON: 05/04/2020 TECHNIQUE: Portable AP view of the chest FINDINGS: Endotracheal tube in satisfactory position. Nasogastric tube courses below the left hemidiaphragm. The mediastinum and cardiac silhouette are stable and within normal limits for portable technique. The lung amor are clear without acute consolidation, effusion, or pneumothorax. Skeletal structures are intact. IMPRESSION: No acute cardiopulmonary process appreciated. <Electronically signed by Alonzo Chiu > 05/05/20 0928
[2020-05-05] MEDS ORDERED: MAG SULF 1GM/100ML (MAG RUN) 1 GM in IV 1 EA IV ONE (09:45)
[2020-05-05] MEDS ORDERED: POTASSIUM CHLORIDE 10% LIQ 20 MEQ/15 ML UDC PO ONE (09:45)
[2020-05-05] MEDS: METOPROLOL TART 50 MG TAB PO SCH ×2 (10:55→21:04)
[2020-05-05] MEDS: FOLIC ACID 1 MG TAB PO SCH (10:55)
[2020-05-05] MEDS: MULTIVITAMINS/MINERALS THERAP 1 TAB PO SCH (10:55)
[2020-05-05] MEDS ORDERED: POTASSIUM CHLORIDE 10 MEQ SR TABLET PO ONE (12:00)
[2020-05-05] MEDS ORDERED: propofoL 200 MG/20 ML VIAL ONE (14:57)
[2020-05-05] MEDS ORDERED: ETOMIDATE INJ 20MG/10ML VIAL ONE (14:57)
[2020-05-05] MEDS ORDERED: SUCCINYLCHOLINE 100 MG/5 ML SYRINGE (J0330) ONE (14:57)
--- NOTE | 2020-05-05 20:20 | IPNPDOC ---
Date Seen The patient was seen on 05/05/20. Progress Note SUBJECTIVE: This patient was transferred to medicine team today by critical care team. He was extubated successfully this AM, no seizure activity since admission. Started on antihypertensives, CIWA scale with ativan. When examined earlier, still slightly groggy from sedation medications but denied any acute complaints. Saturating well on RA later in the day and transferred to [facility] with tele. OBJECTIVE: VITAL SIGNS: Please see below PHYSICAL EXAMINATION: VS: Please see below CONSTITUTIONAL: No acute distress, resting comfortably, AAO x 3 EYES: PERRLA, EOM intact HENT, MOUTH: Normocephalic, atraumatic, moist mucous membranes NECK: SUPPLE, no JVD, no lymphadenopathy, no carotid bruit CV: Regular rate and rhythm, S1S2 normal, no murmurs/rubs/gallops RESPIRATORY: Clear to auscultation bilaterally, no rales/rhonchi/wheezes GI: BS positive in 4 quadrants, soft, nontender, nondistended, no rebound or guarding, no organomegaly : Deferred MUSCULOSKELETAL: Normal ROM. No cyanosis, clubbing, swelling, joint deformity, extremity edema INTEGUMENTARY: Intact, no rashes, no lesions, no erythema NEUROLOGIC: Cranial Nerves II-XII are intact, no focal deficits PSYCHIATRIC: Mood and affect are normal CURRENT MEDICATIONS: Please see below LABORATORY DATA: Please see below IMAGING: CXR 05/05/20: No acute cardiopulmonary process appreciated. ASSESSMENT: 74 y/o M with PMH of alcohol abuse admitted for respiratory failure with hypercapnia likely 2/2 to AMS and seizure activity, intubated and admitted to ICU. PLAN: Acute hypercapnic, hypoxic respiratory failure likely 2/2 to altered mental status and seizure activity. -Extubated successfully this AM, groggy this AM but following all commands -Answers questions appropriately, appears to be at baseline cognitively -Remains stable saturating well on RA. -Please see below for individual treatment plans Tonic-clonic seizure with unclear etiology but likely 2/2 to alcohol withdrawl -No seizure activity since admission -C/w keppra PO BID -Discuss with neurology prior to discharge as to need to keep or stop -Monitor for s/s of alcohol withdrawl, discussed below -Started on CLD today, can advance as tolerated -Elevated head of bed, seizure precautions Alcohol abuse -Does not appear to be in withdrawl currently -VS stable -C/w CIWA, ativan , thiamine, folate, MV Hypertension -Started on metoprolol BID -Monitor closely Hyperammonemia on admission -No increased AST/ALT, liver issues in hx but does have alcohol history -F/u ammonia in the AM Hypokalemia, acute likely 2/2 to decreased PO intake -Supplemented KCl today -F/u AM labs Hypomagnesemia, acute likley 2/2 to decreased Po intake -F/u AM labs GI px PPI DVT px -Lovenox Resolved issues: Lactic acidosis 2/2 to recent seizure activity DISPOSITION: Downgraded today from ICU to med/surg with tele. Monitoring closely overnight. PT/OT ordered for the AM. Plan is discharge home if does well. VS, I&O, 24H, [place] Vital Signs/I&O Vital Signs Date Time Temp Pulse Resp B/P (MAP) Pulse Ox O2 Delivery O2 Flow Rate FiO2 05/05/20 19:26 75 05/05/20 18:00 98.8 18 140/74 (96) 97 Room Air 05/05/20 11:00 28 05/05/20 09:30 I&O- Last 24 Hours up to 6 AM 05/05/20 06:00 Intake Total 2510.9 ml Output Total 2360 ml Balance 150.9 ml Laboratory Data 24H LABS Laboratory Tests 2 05/04/20 20:53: Magnesium Level 1.9 05/05/20 04:15: Nucleated Red Blood Cells % (auto) 0.0, Anion Gap 11, Glomerular Filtration Rate > 60.0, Calcium Level 8.8, Total Bilirubin 1.2#H, Aspartate Amino Transf (AST/SGOT) 22, Alanine Aminotransferase (ALT/SGPT) 17, Alkaline Phosphatase 60, Total Protein 6.5, Albumin 3.7, Albumin/Globulin Ratio 1.3 05/05/20 05:34: Blood Gas Bicarbonate Standard 23.1, Arterial Blood pH 7.541H, Arterial Blood Partial Pressure CO2 22.5L, Arterial Blood Partial Pressure O2 177.4H, Arterial Blood Total CO2 19.5L, Arterial Blood HCO3 18.9L, Arterial Blood Base Excess - 1.7, Arterial Blood Oxygen Saturation 99.4H CBC/BMP Laboratory Tests 05/05/20 04:15 Microbiology Microbiology 05/04/20 Blood Culture - Preliminary, Resulted No growth after 24 hours . All specim... 05/04/20 Blood Culture - Preliminary, Resulted No growth after 24 hours . All specim... Current Medications Current Medications Medications (Trade) Dose Ordered Sig/Mahin Route PRN Reason Start Time Stop Time Status Last Admin Dose Admin Albuterol Sulfate (Proventil Neb) 2.5 mg RQ4H NEB 05/04/20 12:00 05/05/20 19:24 Chlorhexidine Gluconate (Peridex Oral Rinse) SWAB/BRUSH ORAL CAVITY BID MT 05/04/20 21:00 05/05/20 09:22 DC 05/05/20 08:05 Folic Acid (Folic Acid) 1 mg DAILY PO 05/05/20 09:00 05/05/20 10:55 Home Med (Med Rec Complete!) ASDIRECTED XX 05/04/20 09:15 05/04/20 09:11 DC Hydralazine HCl (Apresoline) 10 mg Q6H IV 05/04/20 11:00 05/05/20 15:11 DC 05/04/20 12:09 Levetiracetam 500 mg/Dextrose 105 ml @ 420 mls/hr Q12H IV 05/04/20 21:00 05/05/20 08:04 Lorazepam (Ativan) 2 mg STAT STAT IV 05/04/20 08:39 05/04/20 08:41 DC 05/04/20 07:50 Lorazepam (Ativan) 2 mg STAT STAT IV 05/04/20 08:39 05/04/20 08:41 DC 05/04/20 08:28 Metoprolol Tartrate (Lopressor) 50 mg BID PO 05/05/20 09:00 05/05/20 10:55 Midazolam HCl (Versed) 2 mg Q15MP PRN IV AGITATION 05/04/20 10:30 05/05/20 09:22 DC 05/05/20 01:38 Midazolam HCl 50 mg/Dextrose 50 ml @ 2 mls/hr Q24H IV 05/04/20 08:30 05/04/20 14:19 DC 05/04/20 09:01 Morphine Sulfate (Morphine Sulfate Inj) 2 mg Q2H PRN IV PAIN 05/04/20 10:30 05/05/20 09:22 DC Multivitamins (Theragram-M) 1 tab DAILY PO 05/05/20 09:00 05/05/20 10:55 Oxazepam (Serax) 10 mg Q4HP PRN PO WITHDRAWAL SYMPTOMS 05/05/20 09:00 Pantoprazole Sodium (Protonix) 40 mg DAILY IV 05/05/20 09:00 05/05/20 08:04 Propofol 1000 mg/ IV Miscellaneous Supplies 100 ml @ 3.684 mls/ hr Q24H IV 05/04/20 11:00 05/05/20 09:22 DC 05/05/20 08:03 Thiamine HCl (Thiamine HCl) 100 mg BID PO 05/05/20 21:00 05/08/20 20:59 Allergies Coded Allergies: ENVIROMENTAL (Verified Allergy, Unknown, 06/01/19) Rebekah Laguna MD May 05, 2020 20:20
[2020-05-05] MEDS: THIAMINE 100 MG TAB PO SCH (21:05)
[2020-05-05] MEDS: levETIRAcetam 250MG TABLET (KEPPRA) PO SCH (21:05)
[2020-05-06] MEDS: ALBUTEROL SULFATE 2.5 MG/0.5 ML INH NEB SOLN NEB SCH ×6 (03:36→23:17)
[2020-05-06 05:41] LABS: HEMATOCRIT 35.9 % (42.0-52.0); MEAN CORPUSCULAR HEMOGLOBIN 30.9 pg (27.0-33.0); MEAN CORPUSCULAR HGB CONC 33.4 g/dl (32.0-36.5); MEAN CORPUSCULAR VOLUME 92.5 fl (80.0-96.0); PLATELET COUNT, AUTOMATED 117 10^3/uL (150-450); RED BLOOD COUNT 3.88 10^6/uL (4.30-6.10); WHITE BLOOD COUNT 10.2 10^3/uL (4.0-10.0)
[2020-05-06 06:00] VITALS: BP 108/60
[2020-05-06 06:19] LABS: ALBUMIN 3.4 GM/DL (3.2-5.2); ALT/SGPT 17 U/L (12-78); BILIRUBIN,TOTAL 1.4 MG/DL (0.2-1.0); BLOOD UREA NITROGEN 10 MG/DL (7-18); CALCIUM LEVEL 8.4 MG/DL (8.8-10.2); CARBON DIOXIDE LEVEL 25 MEQ/L (21-32); CHLORIDE LEVEL 107 MEQ/L (98-107); CREATININE FOR GFR 0.92 MG/DL (0.70-1.30); GLOMERULAR FILTRATION RATE > 60.0 (>42); GLUCOSE, FASTING 79 MG/DL (70-100); PHOSPHORUS LEVEL 2.8 MG/DL (2.5-4.9); POTASSIUM SERUM 4.1 MEQ/L (3.5-5.1); SODIUM LEVEL 140 MEQ/L (136-145)
[2020-05-06] MEDS ORDERED: KEPP250T5 PO (08:36)
[2020-05-06] MEDS: levETIRAcetam 250MG TABLET (KEPPRA) PO SCH ×2 (08:44→21:33)
[2020-05-06] MEDS: THIAMINE 100 MG TAB PO SCH ×2 (08:44→21:33)
[2020-05-06] MEDS: PANTOPRAZOLE 40MG VIAL (C9113 PER 1) IV SCH (08:44)
[2020-05-06] MEDS: FOLIC ACID 1 MG TAB PO SCH (08:45)
[2020-05-06] MEDS: MULTIVITAMINS/MINERALS THERAP 1 TAB PO SCH (08:45)
[2020-05-06] MEDS: METOPROLOL TART 50 MG TAB PO SCH ×2 (08:46→21:00)
[2020-05-06] MEDS: ENOXAPARIN 40MG/0.4ML SYRINGE (J1650 PER 10MG) SC SCH (08:47)
[2020-05-06] MEDS ORDERED: [UNRECOGNIZED DRUG - CODE] PO (09:55)
[2020-05-06] MEDS ORDERED: KETOROLAC 30 MG/ML 1ML VIAL IV ONE (10:15)
--- NOTE | 2020-05-06 12:23 | IPNPDOC ---
Date Seen The patient was seen on 05/06/20. Progress Note SUBJECTIVE: The patient denies nausea, vomiting. Still complains of some weakness but wants to go home today. He is concerned about his Labrador retriever, alone at home. Patient is an aspiration risk and speech therapist recommended pure diet and thickened liquids. Refuses to use a walker when he ambulates OBJECTIVE: PHYSICAL EXAMINATION: VS: Please see below CONSTITUTIONAL: No jaundice, answers questions appropriately . HEENT: Moist mucous membranes, disheveled-appearing. No JVD or thyromegaly , Heart: Regular rate and rhythm, S1S2 normal, . Lungs: Clear to auscultation bilaterally, . Abdomen: BS positive in 4 quadrants, soft, nontender, nondistended, . Extremities: No edema CURRENT MEDICATIONS: Please see below LABORATORY DATA: Please see below IMAGING: CXR 05/05/20: No acute cardiopulmonary process appreciated. ASSESSMENT: 74 y/o M with history of alcohol abuse admitted for acute hypercapnic respiratory failure due to alcohol withdrawal seizures, status post extubation Problem list: Acute hypoxic and hypercapnic respiratory failure, resolved Alcohol withdrawal seizure Alcohol abuse Hypertension Diverticulosis Left inguinal hernia . Dysphagia with aspiration risk PLAN: Per speech therapist. Patient should have a pure diet with thickened liquids, and per physical therapy, patient has been refusing to use a walker. He will need continued physical therapy after discharge. Since the patient lives alone and has no support system, patient will need further physical therapy prior to hospital discharge. His discharge today has been postponed. VS, [facility] Vital Signs/I&O Vital Signs Date Time Temp Pulse Resp B/P (MAP) Pulse Ox O2 Delivery O2 Flow Rate FiO2 05/06/20 08:46 78 111/59 05/06/20 06:00 98.5 18 96 Room Air 05/05/20 11:00 28 05/05/20 09:30 I&O- Last 24 Hours up to 6 AM 05/06/20 06:00 Intake Total 1175 ml Output Total 1360 ml Balance -185 ml Laboratory Data 24H LABS Laboratory Tests 2 05/06/20 05:29: Nucleated Red Blood Cells % (auto) 0.0, Anion Gap 8, Glomerular Filtration Rate > 60.0, Calcium Level 8.4L, Phosphorus Level 2.8, Magnesium Level 2.0, Total Bilirubin 1.4H, Aspartate Amino Transf (AST/SGOT) 19, Alanine Aminotransferase (ALT/SGPT) 17, Alkaline Phosphatase 54, Ammonia 26, Total Protein 6.0L, Albumin 3.4, Albumin/Globulin Ratio 1.3 CBC/BMP Laboratory Tests 05/06/20 05:29 Microbiology Microbiology 05/04/20 Blood Culture - Preliminary, Resulted No Growth after 48 hours. All Specime... 05/04/20 Blood Culture - Preliminary, Resulted No Growth after 48 hours. All Specime... ABUNDIO SILVA MD May 06, 2020 12:23
[2020-05-06 14:00] VITALS: BP 124/59
[2020-05-06 22:00] VITALS: BP 101/64
[2020-05-07] MEDS: ALBUTEROL SULFATE 2.5 MG/0.5 ML INH NEB SOLN NEB SCH ×6 (04:07→23:46)
[2020-05-07] MEDS: IBUPROFEN 600MG TAB PO PRN ×2 (05:44→20:58)
[2020-05-07 06:00] VITALS: BP 142/73
[2020-05-07] MEDS: levETIRAcetam 250MG TABLET (KEPPRA) PO SCH ×2 (09:26→20:56)
[2020-05-07] MEDS: MULTIVITAMINS/MINERALS THERAP 1 TAB PO SCH (09:26)
[2020-05-07] MEDS: THIAMINE 100 MG TAB PO SCH ×2 (09:26→20:56)
[2020-05-07] MEDS: FOLIC ACID 1 MG TAB PO SCH (09:26)
[2020-05-07] MEDS: PANTOPRAZOLE 40MG VIAL (C9113 PER 1) IV SCH (09:26)
[2020-05-07] MEDS: ENOXAPARIN 40MG/0.4ML SYRINGE (J1650 PER 10MG) SC SCH (09:26)
[2020-05-07] MEDS: METOPROLOL TART 50 MG TAB PO SCH ×2 (09:27→20:57)
--- NOTE | 2020-05-07 10:08 | IPNPDOC ---
Date Seen The patient was seen on 05/07/20. Progress Note SUBJECTIVE: anxious to go home, but still dyphagic and balance is not optimized. no sob, chest pain. wanted to drive to [place] to be with his family, but agreed to stay for rehab services tuesday. OBJECTIVE: PHYSICAL EXAMINATION: VS: Please see below CONSTITUTIONAL: No jaundice, answers questions appropriately . HEENT: dry mucous membranes, disheveled-appearing. poor dentition. No JVD or thyromegaly , Heart: Regular rate and rhythm, S1S2 normal, . Lungs: Clear to auscultation bilaterally, . Abdomen: BS positive in 4 quadrants, soft, nontender, nondistended, . Extremities: No edema CURRENT MEDICATIONS: Please see below LABORATORY DATA: Please see below IMAGING: CXR 05/05/20: No acute cardiopulmonary process appreciated. ASSESSMENT: 74 y/o M with history of alcohol abuse admitted for acute hypercapnic respiratory failure due to alcohol withdrawal seizures, status post extubation Problem list: Acute hypoxic and hypercapnic respiratory failure, resolved Alcohol withdrawal seizure Alcohol abuse Hypertension Diverticulosis Left inguinal hernia . Dysphagia with aspiration risk PLAN: on pureed and thickened liquids. pt to be evaluated by ARU on Tuesday. not cleared by physical therapy for now. will change to ALC/SNF status until Tuesday. continue all other present management. encourage ambulation tid w assistance. VS, I&O, 24H, [facility] Vital Signs/I&O Vital Signs Date Time Temp Pulse Resp B/P (MAP) Pulse Ox O2 Delivery O2 Flow Rate FiO2 05/07/20 09:27 93 136/82 05/07/20 06:00 97.1 20 98 05/07/20 01:40 Room Air 05/05/20 11:00 28 05/05/20 09:30 I&O- Last 24 Hours up to 6 AM 05/07/20 06:00 Intake Total 1110 ml Output Total 550 ml Balance 560 ml Laboratory Data Microbiology Microbiology 05/04/20 Blood Culture - Preliminary, Resulted No Growth after 72 hours. All specime... 05/04/20 Blood Culture - Preliminary, Resulted No Growth after 72 hours. All specime... ABUNDIO SILVA MD May 07, 2020 10:07
[2020-05-07 14:00] VITALS: BP 139/79
[2020-05-07 22:00] VITALS: BP 159/72
[2020-05-08] MEDS: ALBUTEROL SULFATE 2.5 MG/0.5 ML INH NEB SOLN NEB SCH ×4 (04:00→14:25)
[2020-05-08 06:00] VITALS: BP 140/78
[2020-05-08] MEDS ORDERED: MOM 30ML SUSPENSION UDC PO PRN (07:45)
[2020-05-08] MEDS ORDERED: FLEET ENEMA PR PRN (07:45)
[2020-05-08 08:45] LABS: HEMATOCRIT 41.7 % (42.0-52.0); HEMOGLOBIN 13.8 g/dl (13.5-17.5); MEAN CORPUSCULAR HEMOGLOBIN 31.1 pg (27.0-33.0); MEAN CORPUSCULAR HGB CONC 33.1 g/dl (32.0-36.5); MEAN CORPUSCULAR VOLUME 93.9 fl (80.0-96.0); PLATELET COUNT, AUTOMATED 163 10^3/uL (150-450); RED BLOOD COUNT 4.44 10^6/uL (4.30-6.10); WHITE BLOOD COUNT 6.2 10^3/uL (4.0-10.0)
[2020-05-08] MEDS: MULTIVITAMINS/MINERALS THERAP 1 TAB PO SCH (08:50)
[2020-05-08] MEDS: ENOXAPARIN 40MG/0.4ML SYRINGE (J1650 PER 10MG) SC SCH (08:50)
[2020-05-08] MEDS: levETIRAcetam 250MG TABLET (KEPPRA) PO SCH (08:50)
[2020-05-08] MEDS: THIAMINE 100 MG TAB PO SCH (08:50)
[2020-05-08 08:51] VITALS: BP 139/78
[2020-05-08] MEDS: FOLIC ACID 1 MG TAB PO SCH (08:51)
[2020-05-08] MEDS: METOPROLOL TART 50 MG TAB PO SCH (08:51)
[2020-05-08] MEDS ORDERED: PANTOPRAZOLE 40MG TAB (PROTONIX) PO SCH (09:00)
[2020-05-08 09:05] LABS: BLOOD UREA NITROGEN 10 MG/DL (7-18); CALCIUM LEVEL 8.5 MG/DL (8.8-10.2); CARBON DIOXIDE LEVEL 27 MEQ/L (21-32); CHLORIDE LEVEL 101 MEQ/L (98-107); CREATININE FOR GFR 0.97 MG/DL (0.70-1.30); GLOMERULAR FILTRATION RATE > 60.0 (>42); GLUCOSE, FASTING 109 MG/DL (70-100); POTASSIUM SERUM 4.2 MEQ/L (3.5-5.1); SODIUM LEVEL 135 MEQ/L (136-145)
== END 2020-05-08 17:10 | disposition home health service (06) | DRG 208 ==
LOC: M ED 07:35 → EDBD 07:35 → M ED INP 10:22 → M PCU 14:16 → M MSPAV 05-05 16:05 → UNDODISIN 05-05 16:12
PROVIDERS: ADMIT Internal Medicine Pulmonary Disease; ATTEND General Practice
PROC: 5A1935Z Respiratory Ventilation, Less than 24 Consecutive Hours (ICD-10-PCS; principal; 2020-05-04)
PROC: 0BH17EZ Insertion of Endotracheal Airway into Trachea, Via Natural or Artificial Opening (ICD-10-PCS; 2020-05-04)
DX: J96.01 Acute respiratory failure with hypoxia (principal); E87.2 Acidosis; F10.139 Alcohol abuse with withdrawal, unspecified; E72.20 Disorder of urea cycle metabolism, unspecified; J96.02 Acute respiratory failure with hypercapnia; E87.6 Hypokalemia; R56.9 Unspecified convulsions; I10 Essential (primary) hypertension; Z86.73 Personal history of transient ischemic attack (TIA), and cerebral infarction without residual deficits; K57.90 Diverticulosis of intestine, part unspecified, without perforation or abscess without bleeding; K40.90 Unilateral inguinal hernia, without obstruction or gangrene, not specified as recurrent; R13.10 Dysphagia, unspecified; F17.200 Nicotine dependence, unspecified, uncomplicated; Z20.828 Contact with and (suspected) exposure to other viral communicable diseases

== ENCOUNTER → 2020-05-28 | Outpatient (REF) | payer MEDICARE, MEDICAID ==
[~2020-05-28] MED LIST changes: +ASPI-161 PO; -CLIN150C14 PEG; +CLIN150C15 PEG; +GABA-282 PO; -GABA-843 PO; +KEPP250T5 PO; +OMEP-218 PO; +TAMS1CAP17 PO; +[UNRECOGNIZED DRUG - CODE] PO; +[UNRECOGNIZED DRUG - REMARK]
[2020-05-28 16:27] LABS: APPEARANCE, URINE CLEAR (CLEAR); BACTERIA, URINE AUTO NEGATIVE (NEGATIVE); BILIRUBIN, URINE AUTO NEGATIVE (NEGATIVE); BLOOD, URINE BLOOD NEGATIVE (NEGATIVE); COLOR, URINE YELLOW (YELLOW); GLUCOSE, URINE (UA) AUTO NEGATIVE (NEGATIVE); KETONE, URINE AUTO NEGATIVE (NEGATIVE); LEUKOCYTE ESTERASE, URINE AUTO NEGATIVE (NEGATIVE); NITRITE, URINE AUTO NEGATIVE (NEGATIVE); PROTEIN, URINE AUTO NEGATIVE (NEGATIVE); RBC, URINE AUTO 0 /HPF (0-3); SPECIFIC GRAVITY URINE AUTO 1.009 (1.002-1.035); SQUAMOUS EPITHELIAL CELL UR AU 0 /HPF (0-6); UROBILINOGEN, URINE AUTO 0.2 mg/dL (0.0-2.0); WBC, URINE AUTO 1 /HPF (0-3)
== END ==
LOC: M SFHCCLAY 12:49
PROVIDERS: ATTEND Physician Assistant
DX: R35.0 Frequency of micturition (principal)

== ENCOUNTER 2020-08-07 20:48 | Inpatient (IN) | payer MEDICAID, MEDICARE ==
[~2020-08-07] VITALS: Ht 167.6 cm; Wt 55.3 kg
[2020-08-07] MEDS ORDERED: NS 1,000 ML IV SCH (20:59)
--- NOTE | 2020-08-07 22:00 | REPVR ---
PROCEDURE INFORMATION: Exam: CT Head Without Contrast Exam date and time: 08/07/2020 9:17 PM Age: 75 years old Clinical indication: Altered mental status/memory loss; Confusion or disorientation TECHNIQUE: Imaging protocol: Computed tomography of the head without contrast. Radiation optimization: All CT scans at this facility use at least one of these dose optimization techniques: automated exposure control; mA and/or kV adjustment per patient size (includes targeted exams where dose is matched to clinical indication); or iterative reconstruction. COMPARISON: CT Head without contrast 05/04/2020 7:52 AM FINDINGS: Brain: There is no evidence of intracranial bleed. There is mild to moderate diffuse atrophy. Cerebral ventricles: There is prominence of the ventricles probably the result of atrophy. Bones/joints: There is no evidence of fracture. Paranasal sinuses: Clear paranasal sinuses. Mastoid air cells: Clear mastoid air cells. Soft tissues: Unremarkable. IMPRESSION: Mild to moderate atrophy. Electronically signed by: Mike Jean On 08/07/2020 22:00:36 PM
--- NOTE | 2020-08-07 22:02 | REPVR ---
PROCEDURE INFORMATION: Exam: XR Chest Exam date and time: 08/07/2020 9:16 PM Age: 75 years old Clinical indication: Other: Altered mental status TECHNIQUE: Imaging protocol: XR of the chest Views: 1 view. COMPARISON: CR PORTABLE CHEST X-RAY 05/05/2020 8:38 AM FINDINGS: Lungs: The lungs appear clear. Pleural spaces: There is no evidence of pneumothorax or pleural effusion. Heart/Mediastinum: The heart is normal in size. Bones/joints: There is no evidence of bony abnormality. IMPRESSION: Clear appearing lungs. Electronically signed by: Mike Jean On 08/07/2020 22:02:47 PM
[2020-08-07 22:21] LABS: BASO % 0.1 % (0.0-1.0); HEMATOCRIT 43.1 % (42.0-52.0); LYMPH # 0.5 10^3/uL (1.5-5.0); LYMPH % 2.8 % (24.0-44.0); MEAN CORPUSCULAR HGB CONC 34.8 g/dl (32.0-36.5); MEAN CORPUSCULAR VOLUME 91.9 fl (80.0-96.0); MONO # 1.2 10^3/uL (0.0-0.8); MONO % 6.9 % (2.0-8.0); NEUTROPHILS # 15.8 10^3/uL (1.5-8.5); NEUTROPHILS % 89.8 % (36.0-66.0); PLATELET COUNT, AUTOMATED 133 10^3/uL (150-450); RED BLOOD COUNT 4.69 10^6/uL (4.30-6.10); WHITE BLOOD COUNT 17.6 10^3/uL (4.0-10.0)
[2020-08-07 22:34] LABS: RSV AMPLIFICATION NEGATIVE (NEGATIVE)
[2020-08-07 22:53] LABS: INR 1.11; PROTHROMBIN TIME 14.6 SECONDS (12.5-14.3)
[2020-08-07 23:33] LABS: ACETAMINOPHEN LEVEL < 2.0 UG/ML (10.0-30.0); ALBUMIN 4.1 GM/DL (3.2-5.2); ALT/SGPT 19 U/L (12-78); BILIRUBIN,DIRECT 0.3 MG/DL (0.0-0.2); BILIRUBIN,TOTAL 1.2 MG/DL (0.2-1.0); BLOOD UREA NITROGEN 31 MG/DL (7-18); CALCIUM LEVEL 9.1 MG/DL (8.8-10.2); CARBON DIOXIDE LEVEL 19 MEQ/L (21-32); CHLORIDE LEVEL 105 MEQ/L (98-107); CK-MB VALUE MASS 6.1 NG/ML (<3.6); CPK CREATINE PHOSPHOKINASE 244 U/L (39-308); CREATININE FOR GFR 1.33 MG/DL (0.70-1.30); ETHYL ALCOHOL (ETHANOL) < 0.003 % (0.000-0.010); GLUCOSE, FASTING 84 MG/DL (70-100); MAGNESIUM LEVEL 2.2 MG/DL (1.8-2.4); POTASSIUM SERUM 4.5 MEQ/L (3.5-5.1); SALICYLATE LEVEL < 1.7 MG/DL (5.0-30.0); SODIUM LEVEL 135 MEQ/L (136-145); TROPONIN I 0.52 NG/ML (< 0.10)
[2020-08-07] MEDS ORDERED: NS 1,000 ML IV ONE (23:40)
[2020-08-08] VITALS (8 sets, daily range): BP systolic 112–143; BP diastolic 68–86
[2020-08-08 01:50] LABS: CK-MB VALUE MASS 5.6 NG/ML (<3.6); MB/CK RELATIVE INDEX 2.65 (< OR =4); TROPONIN I 0.52 NG/ML (< 0.10)
--- NOTE | 2020-08-08 02:11 | ECGEPIP ---
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
[2020-08-08] MEDS: NS 1,000 ML IV SCH ×2 (03:33→10:25)
[2020-08-08] MEDS ORDERED: MOM 30ML SUSPENSION UDC PO PRN (03:35)
[2020-08-08] MEDS ORDERED: MAALOX 30 ML SUSP *UDC PO PRN (03:35)
[2020-08-08] MEDS ORDERED: levETIRAcetam INJection 1,000 MG in D5W MINI-BAG PLUS 100 ML IV SCH (03:35)
[2020-08-08] MEDS ORDERED: LORazepam 2 MG TAB PO PRN (03:35)
[2020-08-08] MEDS ORDERED: ACETAMINOPHEN TAB 650MG DOSE (2X325MG) PO PRN (03:35)
--- NOTE | 2020-08-08 03:42 | HPEPDOC ---
[facility] Medical History & Physical Date of Admission Aug 08, 2020 Date of Service: Aug 08, 2020 Primary Care Physician: PAPO NUNEZ PA-C Attending Physician: LEILANI DEGROOT MD History and Physical TIME OF SERVICE: 345am CHIEF COMPLAINT: AMS HISTORY OF PRESENT ILLNESS: The majority of the history was obtained from ER staff, the patient had lapses in his memory. This 75 yr old M was brought to the ER bc his neighbor found him in his apartment and he appeared confused. The patient admits to not being able to recognize his neighbor is able to remember that he vomited on his bed but couldnt give me additional details about his day. He denied having any medical problems or taking any medications and didnt know the date, who the president was or why we were wearing masks. REVIEW OF SYSTEMS: incomplete bc pt has AMS PAST MEDICAL/ SURGICAL HISTORY: per chart review DLP /CAD Seizure disorder ? Tonsillar cancer s/p radiation tx / dysphagia Stroke GERD Essential HTN Depression Bilateral cataract surgery SOCIAL HISTORY: Admits to alcohol & THC use (he is not sure when he last drank or smoked) FAMILY HISTORY: per chart review Father brain tumor Mother CAD, CHF Brother heart surgery Sister CHF & brain tumor ALLERGIES: Please see below. HOME MEDICATIONS: Please see below. PHYSICAL EXAMINATION: Vital Signs Date Time Temp Pulse Resp B/P (MAP) Pulse Ox O2 Delivery O2 Flow Rate FiO2 08/07/20 21:03 121/69 (86) 08/07/20 21:06 98.6 83 18 98 Room Air GENERAL APPEARANCE:slim build / well developed / NAD HEENT: EOMI CARDIOVASCULAR: RRR/NMRG / no BLE edema LUNGS: CTAB on RA ABDOMEN: flat /soft and NT MUSCULOSKELETAL: CHRIS x/ 4 INTEGUMENT: abrasion on anterior right lower leg NEUROLOGICAL: strength 5/5 in all extremities/ speech not dysarthric PSYCHIATRIC: A&O to person & place LABORATORY DATA: 08/07/20 21:29 08/07/20 22:43 Prothrombin Time 14.6H, Prothromb Time International Ratio 1.11, Ammonia 21 08/07/20 21:21: Bedside Glucose (Misc Panel) 89 08/07/20 21:29: Immature Granulocyte % (Auto) 0.4, Neutrophils (%) (Auto) 89.8H, Lymphocytes (%) (Auto) 2.8L, Monocytes (%) (Auto) 6.9, Eosinophils (%) (Auto) 0.0, Basophils (%) (Auto) 0.1, Neutrophils # (Auto) 15.8H, Lymphocytes # (Auto) 0.5L, Monocytes # (Auto) 1.2H, Eosinophils # (Auto) 0.0, Basophils # (Auto) 0.0, Nucleated Red Blood Cells % (auto) 0.0, Lactic Acid Level 1.5 08/07/20 21:31: Coronavirus (COVID-19)(PCR) NEGATIVE, Influenza Type A (RT-PCR) NEGATIVE, Influenza Type B (RT-PCR) NEGATIVE, Respiratory Syncytial Virus (PCR) NEGATIVE 08/07/20 22:43: Anion Gap 11, Glomerular Filtration Rate 56.0, Calcium Level 9.1, Magnesium Level 2.2, Total Bilirubin 1.2H, Direct Bilirubin 0.3H, Aspartate Amino Transf (AST/SGOT) 34, Alanine Aminotransferase (ALT/SGPT) 19, Alkaline Phosphatase 66, Total Creatine Kinase 244, Creatine Kinase MB 6.1H, Creatine Kinase MB Relative Index 2.50, Troponin I 0.52H, Total Protein 7.0, Albumin 4.1, Albumin/Globulin Ratio 1.4, Thyroid Stimulating Hormone (TSH) 5.190H, Salicylates Level < 1.7L, Acetaminophen Level < 2.0L, Ethyl Alcohol Level < 0.003 08/08/20 01:21: Total Creatine Kinase 211, Creatine Kinase MB 5.6H, Creatine Kinase MB Relative Index 2.65, Troponin I 0.52H 08/08/20 01:43: Urine Color YELLOW, Urine Appearance HAZY, Urine pH 6.0, Urine Specific [place] 1.020, Urine Protein 2+H, Urine Glucose (UA) NEGATIVE, Urine Ketones 1+H, Urine Blood 1+H, Urine Nitrite NEGATIVE, Urine Bilirubin NEGATIVE, Urine Urobilinogen 0.2, Urine Leukocyte Esterase NEGATIVE, Urine WBC (Auto) 1, Urine RBC (Auto) 2, Urine Hyaline Casts (Auto) 24, Urine Bacteria (Auto) NEGATIVE, Urine Squamous Epithelial Cells 0, Urine Mucus (Auto) SMALL, Urine Sperm (Auto) IMAGING: CT head IMPRESSION: Mild to moderate atrophy. Chest xray IMPRESSION: Clear appearing lungs. MICROBIOLOGY: ASSESSMENT: is a 75 yr old w seizure disorder, CAD, CVA, HTN and hypothyrodism who is admitted for evaluation of encephalopathy which may be post ictal. PLAN: 1 Encephalopaty Possibly postictal state Plan; admit to medical floor / neurochecks / f/u prolactin, serum Keppra level / load with Keppra / fall and seizure precautions 2 HAILEY Likely pre-renal Plan: IVF f/u ulytes for FENa and renal US 3 Chronically elevated Troponin Plan: telemetry /f/u repeat trop 4 Leukocytosis Possibly reactive Plan: monitor vitals and repeat CBC 5 Thrombocytopenia Plan; f/u CBC & Hepatitis panel 6 DLP /CAD / Stroke Plan: Aspirin 7 Simvastatin 7 Seizure disorder ? Plan: resume keppra 8 Tonsillar cancer s/p radiation tx / dysphagia Plan: dysphagia diet / f/u Onc on outpt basis 9 HTN Plan: Losartan 10 GERD Plan: PPI 12 Depression Plan: Fluoxetine 13 Alcohol abuse ? Plan; [facility] order set 14 Hypothyroidism Plan; levothyroxine DVT px w heparin Dispo: home after at least 2 midnights stay Home Medications Scheduled Aspirin (Aspirin EC) 81 Mg Tablet.dr, 81 MG PO DAILY Cholecalciferol (Vitamin D3) (Vitamin D3) 1,000 Unit Tablet, 1,000 UNITS PO DAILY Fluoxetine Hcl (Fluoxetine HCl) 20 Mg Capsule, 20 MG PO DAILY Lactose-Reduced Food (Ensure Liquid) 237 Ml Liquid, 237 ML PO DAILY Levetiracetam (Levetiracetam) 250 Mg Tablet, 250 MG PO BID Levothyroxine Sodium (Levothyroxine Sodium) 50 Mcg Tab, 50 MCG PO DAILY Loratadine (Loratadine) 10 Mg Tablet, 10 MG PO DAILY Losartan Potassium (Losartan Potassium) 50 Mg Tablet, 50 MG PO DAILY Multivitamin with Folic Acid (One Daily Multivitamin Tablet) 400 Mcg Tablet, 1 TAB PO DAILY Omeprazole (Omeprazole) 20 Mg Capsule.dr, 40 MG PO DAILY Simvastatin (Simvastatin) 40 Mg Tab, 40 MG PO QHS Tamsulosin Hcl (Tamsulosin HCl) 0.4 Mg Capsule, 0.4 MG PO DAILY Scheduled PRN Fluticasone Propionate (Flonase Allergy Relief) 9.9 Ml [place].susp, 1 SPRAY NA DAILY PRN for NASAL CONGESTION Miscellaneous Medications [Patient Comment] MED REC COMPLETED VIA EXTERNAL MED HISTORY AND PREVIOUS CLINIC VISIT Allergies Coded Allergies: ENVIROMENTAL (Verified Allergy, Unknown, 06/01/19) A-FIB/CHADSVASC A-FIB History Current/History of A-Fib/PAF?: No Current PO Anticoag Therapy: No LEILANI DEGROOT MD Aug 08, 2020 03:42
[2020-08-08 03:53] LABS: AMPHETAMINES LEVEL URINE NEGATIVE (NEGATIVE); BARBITURATES URINE NEGATIVE (NEGATIVE); BENZODIAZEPINES URINE NEGATIVE (NEGATIVE); CANNABINOIDS URINE POSITIVE (NEGATIVE); COCAINE METABOLITE URINE NEGATIVE (NEGATIVE); METHADONE URINE NEGATIVE (NEGATIVE); OPIATES URINE NEGATIVE (NEGATIVE); PHENCYCLIDINE URINE NEGATIVE (NEGATIVE)
[2020-08-08] MEDS ORDERED: levETIRAcetam 250MG TABLET (KEPPRA) PO ONE (04:05)
[2020-08-08 04:17] LABS: OSMOLALITY URINE 733 MOSM/KG (50-1400)
[2020-08-08 04:33] LABS: POTASSIUM RANDOM URINE 66.5 MEQ/L; SODIUM,RANDOM URINE < 10 MEQ/L
[2020-08-08] MEDS ORDERED: ENSULIQ8 PO (05:49)
[2020-08-08] MEDS ORDERED: LORA-622 PO (05:49)
[2020-08-08] MEDS ORDERED: FLON1SPR (05:49)
[2020-08-08] MEDS ORDERED: PATIENT COMMENT (05:49)
[2020-08-08] MEDS ORDERED: FLUO20CA20 PO (05:49)
[2020-08-08] MEDS ORDERED: LEVE250T5 PO (05:49)
[2020-08-08] MEDS: THIAMINE 100 MG TAB PO SCH ×2 (06:00→21:50)
[2020-08-08 06:10] LABS: HEMATOCRIT 46.8 % (42.0-52.0); HEMOGLOBIN 15.7 g/dl (13.5-17.5); MEAN CORPUSCULAR HEMOGLOBIN 31.2 pg (27.0-33.0); MEAN CORPUSCULAR HGB CONC 33.5 g/dl (32.0-36.5); PLATELET COUNT, AUTOMATED 128 10^3/uL (150-450); RED BLOOD COUNT 5.03 10^6/uL (4.30-6.10)
[2020-08-08] MEDS: HEPARIN SOD (PORCINE) 5000UNITS/ML 1ML VIAL/SYRINGE SC SCH ×3 (06:10→21:51)
[2020-08-08] MEDS ORDERED: FLUTICASONE PROP 0.05% NASAL SPRAY 16 GM (FLONASE) PRN (07:00)
[2020-08-08 07:38] LABS: ALBUMIN 4.1 GM/DL (3.2-5.2); ALT/SGPT 22 U/L (12-78); BILIRUBIN,TOTAL 1.1 MG/DL (0.2-1.0); BLOOD UREA NITROGEN 30 MG/DL (7-18); CALCIUM LEVEL 8.7 MG/DL (8.8-10.2); CARBON DIOXIDE LEVEL 25 MEQ/L (21-32); CHLORIDE LEVEL 104 MEQ/L (98-107); CPK CREATINE PHOSPHOKINASE 193 U/L (39-308); CREATININE FOR GFR 1.22 MG/DL (0.70-1.30); GLOMERULAR FILTRATION RATE > 60.0 (>42); GLUCOSE, FASTING 77 MG/DL (70-100); POTASSIUM SERUM 4.5 MEQ/L (3.5-5.1); SODIUM LEVEL 137 MEQ/L (136-145); TOTAL PROTEIN 7.3 GM/DL (6.4-8.2)
--- NOTE | 2020-08-08 07:51 | REP ---
INDICATION: HAILEY. COMPARISON: Renal ultrasound dated 01/31/2018. TECHNIQUE: Multiple sonographic images of the kidneys. FINDINGS: The right kidney measures 9.7 x 3.7 x 4.2 cm. The left kidney measures 10.5 x 3.2 x 4.3 cm. The kidneys are in the low normal size range. Renal cortical echogenicity is normal bilaterally. There is no hydronephrosis on the right or the left. There are no renal calculi There are no solid or cystic renal masses. Bladder: With color Doppler ultrasound there are bilateral ureteral jets. The bladder is incompletely distended and cannot be otherwise evaluated. IMPRESSION: Essentially negative renal ultrasound. There are bilateral ureteral jets into the bladder. The bladder is incompletely distended and cannot be further evaluated. <Electronically signed by Mayito Escalera > 08/08/20 [id number]
--- NOTE | 2020-08-08 07:52 | ECGEPIP ---
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
[2020-08-08] MEDS: FOLIC ACID 1 MG TAB PO SCH (10:24)
[2020-08-08] MEDS: LORATADINE 10 MG TAB PO SCH (10:24)
[2020-08-08] MEDS: OMEPRAZOLE 20 MG CAP PO SCH (10:24)
[2020-08-08] MEDS: ASPIRIN 81MG ENTERIC TABLET PO SCH (10:24)
[2020-08-08] MEDS: FLUoxetine 20 MG CAP PO SCH (10:24)
[2020-08-08] MEDS: TAMSULOSIN 0.4 MG CAP PO SCH (10:24)
[2020-08-08] MEDS: levETIRAcetam 250MG TABLET (KEPPRA) PO SCH ×2 (10:24→21:51)
[2020-08-08] MEDS: MULTIVITAMINS/MINERALS THERAP 1 TAB PO SCH (10:24)
[2020-08-08] MEDS: LOSARTAN 50MG TABLET PO SCH (10:25)
[2020-08-08 11:14] LABS: PROLACTIN 5.5 NG/ML (2.1-17.7)
[2020-08-08] MEDS: LEVOTHYROXINE 50MCG TABLET (0.05MG) PO SCH (13:11)
[2020-08-08 17:00] LABS: CHOLESTEROL RISK RATIO 2.226 (<5)
[2020-08-08 17:03] LABS: BLOOD UREA NITROGEN 31 MG/DL (7-18); CALCIUM LEVEL 8.7 MG/DL (8.8-10.2); CARBON DIOXIDE LEVEL 21 MEQ/L (21-32); CHLORIDE LEVEL 107 MEQ/L (98-107); CK-MB VALUE MASS 3.7 NG/ML (<3.6); CPK CREATINE PHOSPHOKINASE 150 U/L (39-308); CREATININE FOR GFR 1.16 MG/DL (0.70-1.30); GLOMERULAR FILTRATION RATE > 60.0 (>42); GLUCOSE, FASTING 90 MG/DL (70-100); MAGNESIUM LEVEL 2.3 MG/DL (1.8-2.4); MB/CK RELATIVE INDEX 2.47 (< OR =4); POTASSIUM SERUM 4.1 MEQ/L (3.5-5.1); SODIUM LEVEL 138 MEQ/L (136-145); TROPONIN I 0.26 NG/ML (< 0.10)
--- NOTE | 2020-08-08 17:32 | IPNPDOC ---
Text Note Date of Service The patient was seen on 08/08/20. NOTE Subjective: Patient is a 75-year-old male with a PMHx of CAD, HTN, DLP, Chronic CVA, Seizure disorder, Tonsillar CA s/p Radiation, now with Dysphagia, De pression, GERD who presented to the emergency room confusion. Patient's neighbor noted that he did not recognize him with the president was or where he was and was asking why everyone's was wearing masks. Patient was admitted to the hospital service for further evaluation and treatment. Patient was seen and examined at the bedside. Currently patient reports that they feel fine. They are oriented to person. They note that they are the hospital, put unsure of the time. They do not know the president is. Denies any chest pain, shortness breath or palpitations. Has not experience any nausea, vomiting, abdominal pain or diarrhea. Objective: Vitals (See below) General: Sitting up in bed, appears comfortable, AAOx1 (person) HEENT: NC, AT CVS: +S1S2 Lungs: Fair air entry b/l, no appreciable wheezing, rhonchi or rales Abdomen: Soft, nondistended and nontender Extremities: Lower extremities are without any edema, - Calf tenderness Imaging: CT head 08/07: Mild to moderate atrophy. CXR 08/07: Clear appearing lungs. Renal US 08/07: Essentially negative renal ultrasound. There are bilateral ureteral jets into the bladder. The bladder is incompletely distended and cannot be further evaluated. Assessment and plan: Acute metabolic encephalopathy - Patient presented to the emergency room with confusion - Physical does not reveal any focal neurologic deficits - Leukocytosis, remained stable - Imaging noted above - Prolactin level not elevated - c/w Neuro checks - Will check MRI / MRA brain / ECHO / Carotid duplex - Will order PT / OT Seizure disorder - Keppra level pending - c/w Seizure precautions - Keppra resumed HAILEY - Cr is trending down - Renal US noted - Will avoid nephrotoxic medications - s/p IV fluid hydration Chronically elevated Troponin - Patient denies any chest pain or palpitations - EKG noted - Troponins trending down Leukocytosis - Review of systems is negative for any source of infection - Hemodynamically stable and afebrile - UA negative - CXR noted - Will hold off on antibiotics Thrombocytopenia - Hepatitis panel pending DLP / CAD / Stroke - c/w Aspirin / Simvastatin Tonsillar cancer s/p radiation / Dysphagia - c/w Modified diet - c/w Speech therapy HTN - BP well controlled - c/w Losartan Hypothyroidism - c/w Levothyroxine BPH - c/w Tamsulosin Depression - c/w Fluoxetine Alcohol abuse - c/w Thiamine / Folate / MVI - Will c/w CIWA with Ativan PRN GERD - c/w Omeprazole DVT prophylaxis - c/w Heparin Disposition: - Awaiting clinical improvement VS,Santos, I+O VS, Santos I+O Laboratory Tests 08/07/20 21:29 08/07/20 22:43 08/08/20 05:25 08/08/20 16:15 Vital Signs Date Time Temp Pulse Resp B/P (MAP) Pulse Ox O2 Delivery O2 Flow Rate FiO2 08/08/20 16:00 98.0 83 17 131/75 (93) 100 Room Air I&O- Last 24 Hours up to 6 AM 08/08/20 05:59 Intake Total 1200 ml Output Total 0 ml Balance 1200 ml ARISTIDES RODRÍGUEZ MD Aug 08, 2020 17:32
[2020-08-08] MEDS ORDERED: levETIRAcetam 250MG TABLET (KEPPRA) PO SCH (18:00)
--- NOTE | 2020-08-08 18:18 | REP ---
INDICATION: Confusion COMPARISON: Comparison study is from October 08, 2019.. TECHNIQUE: Real-time ultrasound evaluation and duplex Doppler interrogation of the extracranial carotid vasculature is performed. FINDINGS: Antegrade flow is observed in both vertebral arteries. Right carotid: The right common carotid artery shows diffuse intimal thickening but is otherwise unremarkable. There moderate mixed plaquing in the right carotid bulb and proximal ICA on two-dimensional scanning. Color flow and spectral Doppler interrogation are unremarkable on the right. Velocity chart right carotid: Right CCA PSV: 101 cm/S Right ICA PSV: 104 cm/S Right ICA EDV: 28 cm/S Right ECA PSV: 150 cm/S Right ICA/CCA ratio: 1.04 Left carotid: The left common carotid artery shows diffuse intimal thickening but is otherwise unremarkable. There is moderate mixed plaquing in the left carotid bulb and proximal ICA on two-dimensional scanning. Color flow and spectral Doppler interrogation are unremarkable on the left. Velocity chart left carotid: Left CCA PSV: 116 cm/S Left ICA PSV: 116 cm/S Left ICA EDV: 22 cm/S Left ECA PSV: 202 cm/S Left ICA/CCA ratio: 1.00 IMPRESSION: Less than 50% category narrowing in the right internal carotid artery by Doppler velocity criteria. Stenotic flow velocities are observed in the origins of the external carotid arteries bilaterally. Less than 50% category narrowing in the left ICA by Doppler velocity criteria. ICA velocities are very slightly higher than on the prior study. <Electronically signed by Len Perez > 08/08/20 [id number]
--- NOTE | 2020-08-08 21:08 | REPVR ---
PROCEDURE INFORMATION: Exam: MR Angiogram Head Without Contrast, Arteries Exam date and time: 08/08/2020 7:52 PM Age: 75 years old Clinical indication: Cognitive deficit; Altered mental status; Additional info: Confusion TECHNIQUE: Imaging protocol: MR angiogram head without contrast. Exam focused on the arteries. 3D-renderin-D post-processed images and/or MIPs were created and reviewed. COMPARISON: MRI-Brain without Contrast 10/05/2019 5:13 PM FINDINGS: ANTERIOR CIRCULATION: Right internal carotid artery: Intracranial segment is patent with no significant stenosis. No aneurysm. Right middle cerebral artery: No occlusion or significant stenosis. No aneurysm. Right anterior cerebral artery: No occlusion or significant stenosis. No aneurysm. Left internal carotid artery: Intracranial segment is patent with no significant stenosis. No aneurysm. Left middle cerebral artery: No occlusion or significant stenosis. No aneurysm. Left anterior cerebral artery: No occlusion or significant stenosis. No aneurysm. POSTERIOR CIRCULATION: Right vertebral artery: No occlusion or significant stenosis. No aneurysm. Left vertebral artery: No occlusion or significant stenosis. No aneurysm. Basilar artery: No occlusion or significant stenosis. No aneurysm. Right posterior cerebral artery: No occlusion or significant stenosis. No aneurysm. Left posterior cerebral artery: No occlusion or significant stenosis. No aneurysm. IMPRESSION: No stenosis or occlusion. Electronically signed by: Marco Dominguez On 08/08/2020 21:08:40 PM
--- NOTE | 2020-08-08 21:19 | REPVR ---
PROCEDURE INFORMATION: Exam: MR Head Without Contrast Exam date and time: 08/08/2020 7:52 PM Age: 75 years old Clinical indication: Altered mental status/memory loss; Confusion or disorientation TECHNIQUE: Imaging protocol: MR of the head without contrast. COMPARISON: MRI-Brain without Contrast 10/05/2019 5:13 PM FINDINGS: Brain: Focal area of encephalomalacia with surrounding gliosis in the left cerebellum. Left caudate head and bilateral cerebellar chronic lacunar infarcts. Scattered foci of increased T2/FLAIR signal intensity in the periventricular and subcortical white matter, consistent with chronic small vessel ischemic disease. No acute infarct. No hemorrhage. No edema. Cerebral ventricles: Prominence of the cortical sulci, cisterns and ventricular system, consistent with cerebral and cerebellar volume loss. Bones/joints: Unremarkable. Paranasal sinuses: Mild ethmoid and right greater than left maxillary sinus mucosal thickening. Mastoid air cells: Partial opacification of the left mastoid air cells. Orbital cavity: Unremarkable. Soft tissues: Unremarkable. IMPRESSION: 1. No MR evidence of acute intracranial pathology. 2. Additional findings, as above. Electronically signed by: Marco Dominguez On 08/08/2020 21:19:10 PM
[2020-08-08] MEDS: SIMVASTATIN 40 MG TAB PO SCH (21:51)
[2020-08-09] VITALS (8 sets, daily range): BP systolic 102–126; BP diastolic 52–70
[2020-08-09 05:09] LABS: HEMATOCRIT 37.5 % (42.0-52.0); MEAN CORPUSCULAR HEMOGLOBIN 31.2 pg (27.0-33.0); MEAN CORPUSCULAR HGB CONC 33.3 g/dl (32.0-36.5); MEAN CORPUSCULAR VOLUME 93.5 fl (80.0-96.0); PLATELET COUNT, AUTOMATED 118 10^3/uL (150-450); RED BLOOD COUNT 4.01 10^6/uL (4.30-6.10)
[2020-08-09 05:20] LABS: HEMOGLOBIN 12.5 g/dl (13.5-17.5)
[2020-08-09] MEDS: HEPARIN SOD (PORCINE) 5000UNITS/ML 1ML VIAL/SYRINGE SC SCH ×3 (06:25→22:50)
[2020-08-09] MEDS: LEVOTHYROXINE 50MCG TABLET (0.05MG) PO SCH (06:25)
[2020-08-09 06:57] LABS: BLOOD UREA NITROGEN 30 MG/DL (7-18); CALCIUM LEVEL 8.2 MG/DL (8.8-10.2); CARBON DIOXIDE LEVEL 23 MEQ/L (21-32); CHLORIDE LEVEL 109 MEQ/L (98-107); CREATININE FOR GFR 1.13 MG/DL (0.70-1.30); GLOMERULAR FILTRATION RATE > 60.0 (>42); GLUCOSE, FASTING 96 MG/DL (70-100); POTASSIUM SERUM 3.7 MEQ/L (3.5-5.1); SODIUM LEVEL 140 MEQ/L (136-145)
[2020-08-09 07:55] LABS: FREE T4 1.17 NG/DL (0.76-1.46)
[2020-08-09] MEDS: ASPIRIN 81MG ENTERIC TABLET PO SCH (08:14)
[2020-08-09] MEDS: FOLIC ACID 1 MG TAB PO SCH (08:14)
[2020-08-09] MEDS: OMEPRAZOLE 20 MG CAP PO SCH (08:14)
[2020-08-09] MEDS: FLUoxetine 20 MG CAP PO SCH (08:15)
[2020-08-09] MEDS: TAMSULOSIN 0.4 MG CAP PO SCH (08:15)
[2020-08-09] MEDS: levETIRAcetam 250MG TABLET (KEPPRA) PO SCH ×2 (08:15→20:21)
[2020-08-09] MEDS: MULTIVITAMINS/MINERALS THERAP 1 TAB PO SCH (08:15)
[2020-08-09] MEDS: THIAMINE 100 MG TAB PO SCH ×2 (08:16→20:21)
[2020-08-09] MEDS: LORATADINE 10 MG TAB PO SCH (08:16)
[2020-08-09] MEDS: LOSARTAN 50MG TABLET PO SCH (09:00)
--- NOTE | 2020-08-09 10:13 | IPNPDOC ---
Text Note Date of Service The patient was seen on 08/09/20. NOTE Subjective: Patient is a 75-year-old male with a PMHx of CAD, HTN, DLP, Chronic CVA, Seizure disorder, Tonsillar CA s/p Radiation, now with Dysphagia, De pression, GERD who presented to the emergency room confusion. Patient's neighbor noted that he did not recognize him with the president was or where he was and was asking why everyone's was wearing masks. Patient was admitted to the hospital service for further evaluation and treatment. Patient was seen and examined at the bedside. Patient reports he has had an uneventful evening denies any chest pain, shortness of breath, palpitations, nausea, vomiting, abdominal pain or diarrhea. Patient is oriented to person and place. Unsure of the time, but noted with the president was. Objective: Vitals (See below) General: Patient is sitting up in bed, appears comfortable, awake, alert and oriented 2 (not to time) HEENT: NC, AT CVS: +S1S2 Lungs: There appears to be fair air entry bilaterally without evidence of crackles, wheezing or rhonchi Abdomen: No distention or tenderness, and abdomen is soft Extremities: No evidence of edema Imaging: CT head 08/07: Mild to moderate atrophy. CXR 08/07: Clear appearing lungs. Renal US 08/07: Essentially negative renal ultrasound. There are bilateral ureteral jets into the bladder. The bladder is incompletely distended and cannot be further evaluated. Carotid Duplex US 08/08: Less than 50% category narrowing in the right internal carotid artery by Doppler velocity criteria. Stenotic flow velocities are observed in the origins of the external carotid arteries bilaterally. Less than 50% category narrowing in the left ICA by Doppler velocity criteria. ICA velocities are very slightly higher than on the prior study. MRI Brain 08/08: 1. No MR evidence of acute intracranial pathology. 2. Additional findings, as above. MRA Brain 08/08: No stenosis or occlusion. Assessment and plan: Acute metabolic encephalopathy - Presented to ER with confusion; patient's mentation appears to be improving - Currently is oriented to person, place reports that he is not oriented to time, however, noted with the president was - Physical without focal deficit - s/p Leukocytosis - Imaging noted above - Prolactin level noted - c/w Neuro checks - c/w PT / OT Seizure disorder - Keppra level pending - c/w Seizure precautions - c/w Keppra s/p HAILEY - Cr at baseline - Renal US noted - Will avoid nephrotoxic medications - s/p IV fluid hydration Chronically elevated Troponin - Remains asymptomatic - EKG noted - Troponins trending down s/p Leukocytosis - Review of systems is negative for any source of infection - Hemodynamically stable and afebrile - UA negative - CXR noted - Will hold off on antibiotics Thrombocytopenia - Hepatitis panel pending DLP / CAD / Stroke - c/w Aspirin / Simvastatin Tonsillar cancer s/p radiation / Dysphagia - c/w Modified diet - c/w Speech therapy HTN - BP well controlled - c/w Losartan Hypothyroidism - c/w Levothyroxine BPH - c/w Tamsulosin Depression - c/w Fluoxetine Alcohol abuse - c/w Thiamine / Folate / MVI - c/w CIWA with Ativan PRN GERD - c/w Omeprazole DVT prophylaxis - c/w Heparin Disposition: - Anticipate discharge within 24 hours VS,Santos, I+O VS, Santos, I+O Laboratory Tests 08/08/20 16:15 08/09/20 04:56 Vital Signs Date Time Temp Pulse Resp B/P (MAP) Pulse Ox O2 Delivery O2 Flow Rate FiO2 08/09/20 09:00 102/70 08/09/20 09:00 98.0 80 20 97 Room Air I&O- Last 24 Hours up to 6 AM 08/09/20 06:00 Intake Total 840 ml Output Total 300 ml Balance 540 ml ARISTIDES RODRÍGUEZ MD Aug 09, 2020 10:13
[2020-08-09] MEDS: SIMVASTATIN 40 MG TAB PO SCH (20:21)
[2020-08-10] VITALS: BP 119/58
[2020-08-10 04:00] VITALS: BP 116/60
[2020-08-10] MEDS: LEVOTHYROXINE 50MCG TABLET (0.05MG) PO SCH (06:32)
[2020-08-10] MEDS: HEPARIN SOD (PORCINE) 5000UNITS/ML 1ML VIAL/SYRINGE SC SCH ×3 (06:33→21:00)
[2020-08-10 07:40] LABS: BASO % 0.5 % (0.0-1.0); EOS # 0.1 10^3/uL (0.0-0.5); EOS % 1.6 % (0.0-3.0); HEMOGLOBIN 13.5 g/dl (13.5-17.5); LYMPH # 0.9 10^3/uL (1.5-5.0); LYMPH % 14.2 % (24.0-44.0); MEAN CORPUSCULAR HEMOGLOBIN 31.6 pg (27.0-33.0); MEAN CORPUSCULAR HGB CONC 33.8 g/dl (32.0-36.5); MEAN CORPUSCULAR VOLUME 93.7 fl (80.0-96.0); MONO # 0.6 10^3/uL (0.0-0.8); MONO % 9.7 % (2.0-8.0); NEUTROPHILS # 4.6 10^3/uL (1.5-8.5); NEUTROPHILS % 73.8 % (36.0-66.0); PLATELET COUNT, AUTOMATED 130 10^3/uL (150-450); RED BLOOD COUNT 4.27 10^6/uL (4.30-6.10); WHITE BLOOD COUNT 6.2 10^3/uL (4.0-10.0)
[2020-08-10 08:00] VITALS: BP 145/72
[2020-08-10] MEDS: FOLIC ACID 1 MG TAB PO SCH (08:17)
[2020-08-10] MEDS: levETIRAcetam 250MG TABLET (KEPPRA) PO SCH ×2 (08:17→20:41)
[2020-08-10] MEDS: LORATADINE 10 MG TAB PO SCH (08:17)
[2020-08-10] MEDS: ASPIRIN 81MG ENTERIC TABLET PO SCH (08:17)
[2020-08-10] MEDS: TAMSULOSIN 0.4 MG CAP PO SCH (08:17)
[2020-08-10] MEDS: OMEPRAZOLE 20 MG CAP PO SCH (08:17)
[2020-08-10] MEDS: THIAMINE 100 MG TAB PO SCH ×2 (08:17→20:41)
[2020-08-10] MEDS: LOSARTAN 50MG TABLET PO SCH (08:17)
[2020-08-10] MEDS: MULTIVITAMINS/MINERALS THERAP 1 TAB PO SCH (08:17)
[2020-08-10] MEDS: FLUoxetine 20 MG CAP PO SCH (08:17)
--- NOTE | 2020-08-10 08:25 | EEG ---
ELECTROENCEPHALOGRAM DATE: 08/08/2020 DIAGNOSIS: Altered mental status. EEG# [id number]. REFERRING PHYSICIAN: Sosa Agarwal MD HISTORY: Patient is a 75-year-old man with a history of seizures, stroke, and hypothyroidism who was admitted at [facility] due to altered mental status. He is currently taking folic acid, thiamine, Keppra, aspirin, etc. TECHNICAL DESCRIPTION: This digital EEG was recorded by 21-scalp, ear, and two EKG electrodes and was reviewed in bipolar and referential montages following reformatting in 10-20 international electrode placement system. INTERPRETATION: Patient was noted to be in awake and drowsy states during this EEG. Resting and awake background rhythm consisted of well-formed posterior dominant rhythm with anterior-posterior gradient comprising of 7.5 Hz theta activity measuring 15-40 microvolts in amplitude, which was symmetric and reactive to eye opening. Anteriorly low voltage and mixed frequency activity was noted. Stage 1 and 2 sleep were reviewed and were symmetric bilaterally. Hyperventilation could not be performed. Photic stimulation remained unremarkable. EKG revealed normal sinus rhythm. No focal, lateralizing, or epileptiform abnormalities were seen. No relevant clinical activity was noted. CONCLUSION: This EEG in awake, drowsy states, stage 1 and 2 sleep is abnormal due to presence of mild generalized slowing and disorganization of background consistent with mild nonspecific diffuse cerebellar dysfunction such as seen in encephalopathy due to multiple potential causes, including toxic, metabolic, medication related, infectious, or multifactorial structure brain abnormality. No clear epileptiform abnormalities were seen.
[2020-08-10 08:39] LABS: BLOOD UREA NITROGEN 23 MG/DL (7-18); CALCIUM LEVEL 8.5 MG/DL (8.8-10.2); CARBON DIOXIDE LEVEL 26 MEQ/L (21-32); CHLORIDE LEVEL 110 MEQ/L (98-107); CREATININE FOR GFR 1.18 MG/DL (0.70-1.30); GLOMERULAR FILTRATION RATE > 60.0 (>42); GLUCOSE, FASTING 104 MG/DL (70-100); POTASSIUM SERUM 3.9 MEQ/L (3.5-5.1); SODIUM LEVEL 142 MEQ/L (136-145)
--- NOTE | 2020-08-10 09:17 | IPNPDOC ---
Text Note Date of Service The patient was seen on 08/10/20. NOTE Subjective: Patient is a 75-year-old male with a PMHx of CAD, HTN, DLP, Chronic CVA, Seizure disorder, Tonsillar CA s/p Radiation, now with Dysphagia, De pression, GERD who presented to the emergency room confusion. Patient's neighbor noted that he did not recognize him with the president was or where he was and was asking why everyone's was wearing masks. Patient was admitted to the hospital service for further evaluation and treatment. Patient was seen and examined at the bedside. Appears to be comfortable. Patient is oriented to person, place and time. Unsure if with the president is. Denies any chest pain, short of breath, palpitations, diarrhea, abdominal pain or burning with urination. Objective: Vitals (See below) General: Sitting up in bed eating breakfast, appears comfortable, is oriented to person, place and time. Unsure if with the president is, reported Tomy HEENT: NC, AT CVS: +S1S2 Lungs: Air entry is fair bilaterally without wheezing, rhonchi or crackles Abdomen: Abdomen is soft, no distention or tenderness Extremities: Lower extremities are without any edema Imaging: CT head 08/07: Mild to moderate atrophy. CXR 08/07: Clear appearing lungs. Renal US 08/07: Essentially negative renal ultrasound. There are bilateral ureteral jets into the bladder. The bladder is incompletely distended and cannot be further evaluated. Carotid Duplex US 08/08: Less than 50% category narrowing in the right internal carotid artery by Doppler velocity criteria. Stenotic flow velocities are observed in the origins of the external carotid arteries bilaterally. Less than 50% category narrowing in the left ICA by Doppler velocity criteria. ICA velocities are very slightly higher than on the prior study. MRI Brain 08/08: 1. No MR evidence of acute intracranial pathology. 2. Additional findings, as above. MRA Brain 08/08: No stenosis or occlusion. Assessment and plan: s/p Acute metabolic encephalopathy; possibly 2/2 dehydration and alcohol use - Presented to ER with confusion; patient's mentation appears to be improving - Patient reports that he tends to drink a lot of beer while at home; notes that he should cut down - Today. He is oriented to person, place and time - Has worked with physical therapy and has cleared - s/p Leukocytosis - Imaging noted above - Prolactin level noted - c/w Neuro checks - Anticipate discharge tomorrow with his NephewMatteo (HCP) Seizure disorder - Keppra level pending - c/w Seizure precautions - EEG noted - c/w Keppra s/p HAILEY - Cr at baseline - Renal US noted - Will avoid nephrotoxic medications - s/p IV fluid hydration Chronically elevated Troponin - Remains asymptomatic - EKG noted - Troponins have improved s/p Leukocytosis - Review of systems is negative for any source of infection - Afebrile - UA negative - CXR noted - Will hold off on antibiotics Thrombocytopenia - Hepatitis panel remains pending DLP / CAD / Stroke - c/w Aspirin / Simvastatin Tonsillar cancer s/p radiation / Dysphagia - c/w Modified diet - c/w Speech therapy HTN - BP well controlled - c/w Losartan Hypothyroidism - c/w Levothyroxine BPH - c/w Tamsulosin Depression - c/w Fluoxetine Alcohol abuse - c/w Thiamine / Folate / MVI - s/p CIWA protocol GERD - c/w Omeprazole DVT prophylaxis - c/w Heparin Disposition: - Anticipate discharge home tomorrow - Discussed with HCP / Nephew, Matteo Ambriz VS,[place], I+O VS, [place], I+O Laboratory Tests 08/10/20 07:27 Vital Signs Date Time Temp Pulse Resp B/P (MAP) Pulse Ox O2 Delivery O2 Flow Rate FiO2 08/10/20 08:17 116/60 08/10/20 08:00 98.6 91 16 98 Room Air I&O- Last 24 Hours up to 6 AM 08/10/20 06:00 Intake Total 480 ml Output Total 150 ml Balance 330 ml ARISTIDES RODRÍGUEZ MD Aug 10, 2020 09:17
[2020-08-10 12:28] VITALS: BP 146/76
[2020-08-10 20:00] VITALS: BP 141/73
[2020-08-10] MEDS: SIMVASTATIN 40 MG TAB PO SCH (20:41)
[2020-08-10 22:00] VITALS: BP 153/82
[2020-08-11] VITALS: BP 132/73
[2020-08-11 04:00] VITALS: BP 117/63
[2020-08-11] MEDS: LEVOTHYROXINE 50MCG TABLET (0.05MG) PO SCH (05:31)
[2020-08-11] MEDS: HEPARIN SOD (PORCINE) 5000UNITS/ML 1ML VIAL/SYRINGE SC SCH (05:31)
[2020-08-11 06:00] VITALS: BP 110/63
[2020-08-11] MEDS: ASPIRIN 81MG ENTERIC TABLET PO SCH (08:36)
[2020-08-11] MEDS: OMEPRAZOLE 20 MG CAP PO SCH (08:36)
[2020-08-11 08:37] VITALS: BP 110/63
[2020-08-11] MEDS: FLUoxetine 20 MG CAP PO SCH (08:37)
[2020-08-11] MEDS: levETIRAcetam 250MG TABLET (KEPPRA) PO SCH (08:37)
[2020-08-11] MEDS: FOLIC ACID 1 MG TAB PO SCH (08:37)
[2020-08-11] MEDS: TAMSULOSIN 0.4 MG CAP PO SCH (08:37)
[2020-08-11] MEDS: LOSARTAN 50MG TABLET PO SCH (08:37)
[2020-08-11] MEDS: MULTIVITAMINS/MINERALS THERAP 1 TAB PO SCH (08:37)
[2020-08-11] MEDS: LORATADINE 10 MG TAB PO SCH (08:37)
[2020-08-11] MEDS ORDERED: ESSETAB4 PO (09:42)
[2020-08-11 11:54] LABS: TOTAL T3 82.8 NG/DL (60.0-181.0)
[2020-08-11 12:06] LABS: HEPATITIS B SURFACE ANTIGEN NEGATIVE (NEGATIVE)
[2020-08-11 12:33] LABS: HEPATITIS C VIRUS ABY INDEX < 0.0 INDEX (<0.8)
[2020-08-11 12:34] LABS: HEPATITIS B CORE ANTIBODY IGM NEGATIVE (NEGATIVE)
[2020-08-11 12:35] LABS: HEPATITIS A ANTIBODY IGM NEGATIVE (NEGATIVE)
--- NOTE | 2020-08-11 14:14 | ECHO ---
DATE OF PROCEDURE: 08/09/2020 Age: 75 Gender: Male Height: 66 inches Weight: 124 pounds REFERRING PHYSICIAN: Emma Johns M.D. INDICATION: Acute stroke. MEASUREMENTS: 2D Measurements: Aortic root 3.3 cm Proximal ascending aorta 3.1 cm Left atrium 3.4 cm Intraventricular septum 0.83 cm Posterior wall 0.92 cm Left ventricle diastole 4.6 cm Left ventricle systole 2.7 cm Right ventricle 3.1 cm Inferior vena cava 1.6 cm (more than 50% respiratory variation). Doppler Measurements: No aortic stenosis No aortic regurgitation Aortic valve velocity 130 cm/s LVOT velocity 114 cm/s Very mild mitral regurgitation Mitral E velocity 65.2 cm/s Mitral A velocity 79.5 cm/s Mitral deceleration time 148 msec Mild tricuspid regurgitation Estimated right ventricular systolic pressure 29-34 mmHg Estimated right atrial pressure 5-10 mmHg No pulmonic regurgitation Pulmonary artery pressure 27 mmHg MITRAL ANNULAR TISSUE DOPPLER E prime septal 6.1 cm/s, E prime lateral 9.0 cm/s DESCRIPTION: Rhythm was sinus. This was a moderately technically difficult echocardiogram. No pericardial effusion. This was a 2D, M-mode, color flow Doppler, and pulsed wave Doppler examination including mitral annular tissue Doppler. CONCLUSIONS: 1. Normal left ventricle internal dimensions and wall thickness. Normal regional LV wall motion and wall thickening. Normal LV systolic function. LVEF 65% by visual estimate. Grade 1 LV diastolic dysfunction (impaired relaxation filling pattern). 2. Negative bubble study for detection of intracardiac shunting. 3. Estimated right ventricle systolic pressure to be near the upper limits of normal to mildly elevated. Normal right ventricle size and systolic function. 4. Very mild aortic valve sclerosis of a 3-cuspid aortic valve. No aortic regurgitation. 5. Otherwise normal appearing echocardiogram Doppler findings. [facility]
--- NOTE | 2020-08-11 15:11 | DS.PDOC ---
Discharge Summary General Date of Admission Aug 08, 2020 at 03:33 Date of Discharge 08/11/20 Primary Care Physician: PAPO NUNEZ PA-C Attending Physician: EMMA JOHNS MD Discharge Summary PROCEDURES PERFORMED DURING STAY: [None]. ADMITTING DIAGNOSES: 1. Metabolic Encephalopathy 2. HAILEY 3. Elevated troponin 4. Leukocytosis 5. Thrombocytopenia 6. Seizure Disorder 7. Tonsillar Cancer s/p radiation 8. 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 Alcohol use disorder 10. Hypothyroidism DISCHARGE DIAGNOSES: 1. Metabolic Encephalopathy 2. HAILEY 3. Elevated troponin 4. Leukocytosis 5. Thrombocytopenia 6. Seizure Disorder 7. Tonsillar Cancer s/p radiation 8. 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 Alcohol use disorder 10. Hypothyroidism COMPLICATIONS/CHIEF COMPLAINT: Hailey,Altered Mental Status,Elevated Troponin. HISTORY OF PRESENT ILLNESS: Patient is a 75 year old male with a past medical history significant for unspecified seizure disorder, alcohol use disorder, stroke, depression, and hypertension who presented to the [facility] ER after his neighbor had found him in his apartment confused. The HPI was limited as the patient was confused and altered. In the EF the patient was unable to answer any questions appropriately and was admitted to hospitalist service for altered mental status and metabolic encephalopathy. HOSPITAL COURSE: On admission the patient was given Keppra IV for possible post ictal state although this was unlikely. He did receive MRI, MRA, Carotid ultrasound, and head CT for stroke evaluation. All of which were negative for any acute findings. Additionally the patient was found to have an HAILEY on admission. Likely secondary to prerenal due to dehydration. Additionally the patient was suspected of alcohol use. He was given thiamine, folic acid, and multivitamin, and IV fluids. His HAILEY resolved with IV fluids and avoidance of nephrotoxic agents. His metabolic encephalopathy was felt to be secondary to dehydration and alcohol use. Over the course of his hospitalization the patients status improved and he was discharged home with follow-up with his PCP DISCHARGE MEDICATIONS: Please see below. ALLERGIES: Please see below. PHYSICAL EXAMINATION ON DISCHARGE: VITAL SIGNS: Please see below. GENERAL: Awake, alert, and oriented. Appears in no acute distress. Lying comfortably in bed. HEENT: Atraumatic ,normocephalic. Eyes are nonicteric. Trachea is midline. Mucous membranes are pink and moist NECK: No palpable cervical, axillary, or supraclavicular lymphadenopathy CARDIOVASCULAR EXAMINATION: Normal S1, S2. Regular rate and rhythm. No clicks, rubs, or murmurs RESPIRATORY EXAMINATION: Clear breath sounds bilaterally. No wheezes, rhonchi, or rales. ABDOMINAL EXAMINATION: Soft, nondistended. Nontender. Normoactive bowel sounds EXTREMITIES: No edema. Full and equal pulses bilaterally SKIN: No rashes or lesions NEUROLOGICAL EXAMINATION: No focal neurological deficits PSYCHIATRIC EXAMINATION: Mood and affect appear appropriate LABORATORY DATA: Please see below. IMAGING: PROCEDURE INFORMATION: Exam: CT Head Without Contrast Exam date and time: 08/07/2020 9:17 PM Age: 75 years old Clinical indication: Altered mental status/memory loss; Confusion or disorientation TECHNIQUE: Imaging protocol: Computed tomography of the head without contrast. Radiation optimization: All CT scans at this facility use at least one of these dose optimization techniques: automated exposure control; mA and/or kV adjustment per patient size (includes targeted exams where dose is matched to clinical indication); or iterative reconstruction. COMPARISON: CT Head without contrast 05/04/2020 7:52 AM FINDINGS: Brain: There is no evidence of intracranial bleed. There is mild to moderate diffuse atrophy. Cerebral ventricles: There is prominence of the ventricles probably the result of atrophy. Bones/joints: There is no evidence of fracture. Paranasal sinuses: Clear paranasal sinuses. Mastoid air cells: Clear mastoid air cells. Soft tissues: Unremarkable. IMPRESSION: Mild to moderate atrophy. Electronically signed by: Mike Jean On 08/07/2020 22:00:36 PM PROCEDURE INFORMATION: Exam: XR Chest Exam date and time: 08/07/2020 9:16 PM Age: 75 years old Clinical indication: Other: Altered mental status TECHNIQUE: Imaging protocol: XR of the chest Views: 1 view. COMPARISON: CR PORTABLE CHEST X-RAY 05/05/2020 8:38 AM FINDINGS: Lungs: The lungs appear clear. Pleural spaces: There is no evidence of pneumothorax or pleural effusion. Heart/Mediastinum: The heart is normal in size. Bones/joints: There is no evidence of bony abnormality. IMPRESSION: Clear appearing lungs. Electronically signed by: Mike Jean On 08/07/2020 22:02:47 PM INDICATION: HAILEY. COMPARISON: Renal ultrasound dated 01/31/2018. TECHNIQUE: Multiple sonographic images of the kidneys. FINDINGS: The right kidney measures 9.7 x 3.7 x 4.2 cm. The left kidney measures 10.5 x 3.2 x 4.3 cm. The kidneys are in the low normal size range. Renal cortical echogenicity is normal bilaterally. There is no hydronephrosis on the right or the left. There are no renal calculi There are no solid or cystic renal masses. Bladder: With color Doppler ultrasound there are bilateral ureteral jets. The bladder is incompletely distended and cannot be otherwise evaluated. IMPRESSION: Essentially negative renal ultrasound. There are bilateral ureteral jets into the bladder. The bladder is incompletely distended and cannot be further evaluated. <Electronically signed by Mayito Escalera > 08/08/20 0782 INDICATION: Confusion COMPARISON: Comparison study is from October 08, 2019.. TECHNIQUE: Real-time ultrasound evaluation and duplex Doppler interrogation of the extracranial carotid vasculature is performed. FINDINGS: Antegrade flow is observed in both vertebral arteries. Right carotid: The right common carotid artery shows diffuse intimal thickening but is otherwise unremarkable. There moderate mixed plaquing in the right carotid bulb and proximal ICA on two-dimensional scanning. Color flow and spectral Doppler interrogation are unremarkable on the right. Velocity chart right carotid: Right CCA PSV: 101 cm/S Right ICA PSV: 104 cm/S Right ICA EDV: 28 cm/S Right ECA PSV: 150 cm/S Right ICA/CCA ratio: 1.04 Left carotid: The left common carotid artery shows diffuse intimal thickening bu t is otherwise unremarkable. There is moderate mixed plaquing in the left carotid bulb and proximal ICA on two-dimensional scanning. Color flow and spectral Doppler interrogation are unremarkable on the left. Velocity chart left carotid: Left CCA PSV: 116 cm/S Left ICA PSV: 116 cm/S Left ICA EDV: 22 cm/S Left ECA PSV: 202 cm/S Left ICA/CCA ratio: 1.00 IMPRESSION: Less than 50% category narrowing in the right internal carotid artery by Doppler velocity criteria. Stenotic flow velocities are observed in the origins of the external carotid arteries bilaterally. Less than 50% category narrowing in the left ICA by Doppler velocity criteria. ICA velocities are very slightly higher than on the prior study. <Electronically signed by Len Perez > 08/08/20 1814 PROCEDURE INFORMATION: Exam: MR Angiogram Head Without Contrast, Arteries Exam date and time: 08/08/2020 7:52 PM Age: 75 years old Clinical indication: Cognitive deficit; Altered mental status; Additional info: Confusion TECHNIQUE: Imaging protocol: MR angiogram head without contrast. Exam focused on the arteries. 3D-renderin-D post-processed images and/or MIPs were created and reviewed. COMPARISON: MRI-Brain without Contrast 10/05/2019 5:13 PM FINDINGS: ANTERIOR CIRCULATION: Right internal carotid artery: Intracranial segment is patent with no significant stenosis. No aneurysm. Right middle cerebral artery: No occlusion or significant stenosis. No aneurysm. Right anterior cerebral artery: No occlusion or significant stenosis. No aneurysm. Left internal carotid artery: Intracranial segment is patent with no significant stenosis. No aneurysm. Left middle cerebral artery: No occlusion or significant stenosis. No aneurysm. Left anterior cerebral artery: No occlusion or significant stenosis. No aneurysm. POSTERIOR CIRCULATION: Right vertebral artery: No occlusion or significant stenosis. No aneurysm. Left vertebral artery: No occlusion or significant stenosis. No aneurysm. Basilar artery: No occlusion or significant stenosis. No aneurysm. Right posterior cerebral artery: No occlusion or significant stenosis. No aneurysm. Left posterior cerebral artery: No occlusion or significant stenosis. No aneurysm. IMPRESSION: No stenosis or occlusion. Electronically signed by: Marco Dominguez On 08/08/2020 21:08:40 PM PROCEDURE INFORMATION: Exam: MR Head Without Contrast Exam date and time: 08/08/2020 7:52 PM Age: 75 years old Clinical indication: Altered mental status/memory loss; Confusion or disorientation TECHNIQUE: Imaging protocol: MR of the head without contrast. COMPARISON: MRI-Brain without Contrast 10/05/2019 5:13 PM FINDINGS: Brain: Focal area of encephalomalacia with surrounding gliosis in the left cerebellum. Left caudate head and bilateral cerebellar chronic lacunar infarcts. Scattered foci of increased T2/FLAIR signal intensity in the periventricular and subcortical white matter, consistent with chronic small vessel ischemic disease. No acute infarct. No hemorrhage. No edema. Cerebral ventricles: Prominence of the cortical sulci, cisterns and ventricular system, consistent with cerebral and cerebellar volume loss. Bones/joints: Unremarkable. Paranasal sinuses: Mild ethmoid and right greater than left maxillary sinus mucosal thickening. Mastoid air cells: Partial opacification of the left mastoid air cells. Orbital cavity: Unremarkable. Soft tissues: Unremarkable. IMPRESSION: 1. No MR evidence of acute intracranial pathology. 2. Additional findings, as above. Electronically signed by: Marco Dominguez On 08/08/2020 21:19:10 PM PROGNOSIS: Good ACTIVITY: [As tolerated]. DIET: As tolerated DISCHARGE PLAN: Patient is to be discharged home with follow-up with his PCP. He is to continue his medications as previously prescribed. Patient was advised to abstain from alcohol use DISPOSITION: 01 Home, Self-Care. DISCHARGE INSTRUCTIONS: 1. Follow-up with PCP in 7-10 days 2. Continue medications as previously prescribed DISCHARGE CONDITION: [Stable]. TIME SPENT ON DISCHARGE: Greater than 40 minutes. Vital Signs/I&Os Vital Signs Date Time Temp Pulse Resp B/P (MAP) Pulse Ox O2 Delivery O2 Flow Rate FiO2 08/11/20 08:37 110/63 08/11/20 06:00 97.8 79 17 98 Room Air I&O- Last 24 Hours up to 6 AM 08/11/20 06:00 Intake Total 1047 ml Output Total 200 ml Balance 847 ml Discharge Medications Scheduled Aspirin (Aspirin EC) 81 Mg Tablet.dr, 81 MG PO DAILY, (Reported) Cholecalciferol (Vitamin D3) (Vitamin D3) 1,000 Unit Tablet, 1,000 UNITS PO DAILY, (Reported) Fluoxetine Hcl (Fluoxetine HCl) 20 Mg Capsule, 20 MG PO DAILY, (Reported) Lactose-Reduced Food (Ensure Liquid) 237 Ml Liquid, 237 ML PO DAILY, (Reported) Levetiracetam (Levetiracetam) 250 Mg Tablet, 250 MG PO BID, (Reported) Levothyroxine Sodium (Levothyroxine Sodium) 50 Mcg Tab, 50 MCG PO DAILY, (Reported) Loratadine (Loratadine) 10 Mg Tablet, 10 MG PO DAILY, (Reported) Losartan Potassium (Losartan Potassium) 50 Mg Tablet, 50 MG PO DAILY, (Reported) Multivitamin with Folic Acid (One Daily Multivitamin Tablet) 400 Mcg Tablet, 1 TAB PO DAILY Omeprazole (Omeprazole) 20 Mg Capsule.dr, 40 MG PO DAILY, (Reported) Simvastatin (Simvastatin) 40 Mg Tab, 40 MG PO QHS, (Reported) Tamsulosin Hcl (Tamsulosin HCl) 0.4 Mg Capsule, 0.4 MG PO DAILY, (Reported) Scheduled PRN Fluticasone Propionate (Flonase Allergy Relief) 9.9 Ml [place].susp, 1 SPRAY NA DAILY PRN for NASAL CONGESTION, (Reported) Miscellaneous Medications [Patient Comment] , (Reported) MED REC COMPLETED VIA EXTERNAL MED HISTORY AND PREVIOUS CLINIC VISIT Allergies Coded Allergies: ENVIROMENTAL (Verified Allergy, Unknown, 06/01/19) GME ATTESTATION GME ATTESTATION My faculty preceptor for this patient encounter was physically present during the encounter and was fully available. All aspects of the patient interview, examination, medical decision making process, and medical care plan development were reviewed and approved by the faculty preceptor. The faculty preceptor is aware and concurs with the plan as stated in the body of this note and will at test to such by his/her cosignature. ATTENDING NOTE I, Emma Johns, have independently examined this patient and performed my own physical exam, as well as reviewed the documentation and edited where necessary. I have discussed in detail with the resident / student the findings and plan of treatment as documented by the resident / student and edited their note. I agree with their findings and treatment plan and have edited their documentation. I will continue to follow the patient during this hospital stay. Time spent on discharge 35 minutes KATHI MAZA DO Aug 11, 2020 15:11 EMMA JOHNS MD Aug 11, 2020 19:08
== END 2020-08-11 12:45 | disposition home health service (06) | DRG 71 ==
LOC: M ED 20:48 → M ED INP 08-08 03:33 → ENRESERV 08-08 08:03 → M ICU 08-08 09:46 → M PCU 08-08 18:42 → M MSPAV 08-10 12:31
PROVIDERS: ADMIT Internal Medicine; ATTEND Internal Medicine
DX: G93.41 Metabolic encephalopathy (principal); N17.9 Acute kidney failure, unspecified; R77.8 Other specified abnormalities of plasma proteins; E03.9 Hypothyroidism, unspecified; F10.10 Alcohol abuse, uncomplicated; R13.19 Other dysphagia; Z92.3 Personal history of irradiation; D69.6 Thrombocytopenia, unspecified; G40.909 Epilepsy, unspecified, not intractable, without status epilepticus; Z86.73 Personal history of transient ischemic attack (TIA), and cerebral infarction without residual deficits; F32.9 Major depressive disorder, single episode, unspecified; I10 Essential (primary) hypertension; Z79.899 Other long term (current) drug therapy; Z79.82 Long term (current) use of aspirin; D72.829 Elevated white blood cell count, unspecified; I25.10 Atherosclerotic heart disease of native coronary artery without angina pectoris; K21.9 Gastro-esophageal reflux disease without esophagitis; N40.0 Benign prostatic hyperplasia without lower urinary tract symptoms; E86.0 Dehydration; C09.9 Malignant neoplasm of tonsil, unspecified